=== PATIENT | male | born 1940 | race Caucasian/White ===

== ENCOUNTER 2018-10-07 20:09 | Observation (INO) | payer MEDICARE ==
[2018-10-07] MEDS ORDERED: NITROGLYCERIN SL TABS 0.4 MG TAB SUBLINGUAL PRN (23:28)
[2018-10-07] MEDS ORDERED: HYDROcodone/APAP 10-325MG 1 EACH TAB PO PRN (23:30)
[2018-10-07] MEDS ORDERED: IPRATROPIUM-ALBUTEROL 3 ML NEB INHALATION PRN (23:38)
[2018-10-07] MEDS ORDERED: ONDANSETRON 4 MG/2 ML VIAL IVP PRN (23:41)
[2018-10-07] MEDS ORDERED: LEVOFLOXACIN 500MG-D5W PMX 500 MG in DEXTROSE/WATER 1 100ML.BAG IVPB ONE (23:45)
[2018-10-08] MEDS ORDERED: HEPARIN SODIUM,PORCINE 5,000 UNIT/ML 1 ML VIAL IV PRN (00:12)
[2018-10-08] MEDS ORDERED: HEPARIN SODIUM,PORCINE 10,000 UNIT/ML 1 ML VIAL IV ONE (00:12)
[2018-10-08] MEDS ORDERED: HEPARIN SOD,PORK IN 0.45% NACL 25,000 UNIT in 0.45% NACL 1 250ML.BAG IV SCH (00:15)
[2018-10-08] MEDS: SODIUM CHLORIDE 0.9% 1,000 ML IV SCH ×2 (00:21→20:07)
[2018-10-08] MEDS: MAGNESIUM OXIDE 400 MG TAB PO SCH ×2 (00:21→20:03)
[2018-10-08] MEDS: methylPREDNISolone SOD SUCCI 125 MG/2 ML VIAL IV SCH ×5 (00:22→22:55)
[2018-10-08 05:52] LABS: Glucose,Whole Blood 161 mg/dL (75-99)
[2018-10-08] MEDS: PANTOPRAZOLE 40 MG TABLET PO SCH (06:24)
[2018-10-08] MEDS: INSULIN ASPART 100 UNIT/ML 1 ML 10 ML VIAL SQ SCH ×4 (06:24→20:03)
[2018-10-08 07:59] LABS: Basophils % (A) 0 %; Eosinophils % (A) 0 %; HCT 35.3 % (39.0-53.0); HGB 11.3 gm/dL (13.0-17.5); Lymphocytes # (A) 0.7 k/uL (1.0-4.8); Lymphocytes % (A) 13 %; MCH 29.4 pg (25.0-35.0); MCHC 31.9 g/dL (31.0-37.0); MCV 92.3 fL (80.0-100.0); Mean Platelet Volume 6.8; Monocytes # (A) 0.1 k/uL (0-1.0); Monocytes % (A) 2 %; Neutrophils # (A) 4.8 k/uL (1.3-7.7); Neutrophils % (A) 85 %; Platelet Count 230 k/uL (150-450); RBC 3.82 m/uL (4.30-5.90); RDW 13.9 % (11.5-15.5); WBC 5.7 k/uL (3.8-10.6)
[2018-10-08] MEDS ORDERED: HEPARIN SODIUM,PORCINE 5,000 UNIT/ML 1 ML VIAL SQ SCH (09:00)
[2018-10-08] MEDS: IPRATROPIUM-ALBUTEROL 3 ML NEB INHALATION SCH ×4 (09:08→20:12)
[2018-10-08] MEDS: SYMBICORT 160-4.5 MCG INHALER INHALATION SCH ×3 (09:09→20:12)
[2018-10-08 10:21] LABS: Calcium 9.5 mg/dL (8.4-10.2); Magnesium 1.9 mg/dL (1.6-2.3); Potassium 4.3 mmol/L (3.5-5.1)
--- NOTE | 2018-10-08 10:57 | NM ---
EXAMINATION TYPE: NM pul vent and perfuse DATE OF EXAM: 10/08/2018 COMPARISON: Chest x-ray 10/08/2018 HISTORY: Elevated d-dimer TECHNIQUE: Utilizing inhalation of 66.4 mCi Tc 99m DTPA aerosol and intravenous injection of 4.86 mC i of Tc 99m MAA, ventilation and perfusion images are acquired post injection in multiple projections . FINDINGS: There is a ventilation and perfusion defect which appears matched within the left posterior segment. This match perfusion ventilation defects are not evident. Some blunting of the posterior right lung m ay be present. There is a small posterior pleural fluid collection. This could be a triple matched de fect which would place the risk for pulmonary embolism at the low end of intermediate. IMPRESSION: Low end of intermediate probability for acute pulmonary embolism based on PIOPED 2 criteria.
[2018-10-08 11:00] LABS: Glucose,Whole Blood 146 mg/dL (75-99)
--- NOTE | 2018-10-08 11:37 | XR ---
EXAMINATION TYPE: XR chest 2V DATE OF EXAM: 10/08/2018 COMPARISON: 10/15/2015 INDICATION: COPD TECHNIQUE: Frontal and lateral views of the chest are obtained. FINDINGS: The heart size is normal. The pulmonary vasculature is normal. Minimal linear atelectasis is at the right base. Sternotomy wires from prior CABG is evident. Prior v ertebroplasty within the mid thoracic spine is evident. There is hyperinflation flattened diaphragms compatible COPD. Minimal posterior pleural effusion may be present. This is suspected to be on the ri ght.. IMPRESSION: 1. Small posterior pleural effusion likely at the right base. 2. COPD.
--- NOTE | 2018-10-08 14:47 | CT ---
EXAMINATION TYPE: CT chest wo con DATE OF EXAM: 10/08/2018 COMPARISON: 10/12/2015 HISTORY: Cough and Shortness of breath CT DLP: 293.[address] of the chest was performed with lung and mediastinal window settings submitted. The la ck of contrast limits evaluation of the vascular, mediastinal and parenchymal structures including th e upper abdomen. LUNGS: Nodular scarring is noted at the lung bases with mild subpleural fibrosis and bronchiectasis. Emphysematous bullous change noted as well. Resolution of previously noted nodular infiltrate through out the right upper lobe. No new infiltrates identified. No suspicious masses seen. No pleural effusi on identified. MEDIASTINUM/ROGER: Thoracic aorta is of normal caliber with limited evaluation given lack of contrast . The heart is not enlarged. No evidence for mediastinal mass. No lymph nodes greater than 1cm. UPPER ABDOMEN: No significant abnormality is seen. OTHER: No significant other abnormality. IMPRESSION: 1. Nodular scarring is noted at the lung bases with mild subpleural fibrosis and bronchiectasis. Emp hysematous bullous change noted as well. Resolution of previously noted nodular infiltrate throughout the right upper lobe.
--- NOTE | 2018-10-08 15:05 | P.CNPUL ---
History of Present Illness Consult date: 10/08/18 Requesting physician: Della Eckert Reason for consult: dyspnea, cough Chief complaint: shortness of breath, productive cough History of present illness: This is a 78-year-old white male patient who presented to the emergency department at the [facility] with complaints of shortness of breath, productive cough. patient has been short of breath for about a month, in addition with having some symptoms of dizziness, sore throat. Patient apparently had trouble completing sentences related to his dyspnea. Past medical history positive for COPD, congestive heart failure, GERD/reflux, hypothyroidism, hyperlipidemia, anxiety,depression, restless leg syndrome, coronary artery disease with previous bypass surgery, left carotid stenosis, chronic pain syndrome related to his history of degenerative arthritis. Patient had episode of pneumonia with a cavitating infiltrate in the right middle lobe back in 2016. fever or chills, patient is on 2 L per nasal cannula his pulse ox is 95%. labs showed no evidence of leukocytosis, white count was 5.7, hemoglobin is 11.3, sodium is 133, potassium is 4.3, chloride is 96, CO2 was 28, BUN was 18 and creatinine was 0.96. chest x-ray showed small posterior pleural effusion at the right base, on the background of COPD, minimal linear atelectasis at the right base. VQ scan showed a low and of intermediate probability for acute PE. Patient had seen Dr. Xie at the [facility] in the past, his baseline FEV1 is 39% of predicted with chronic hypoxemic respiratory failure. He wears home oxygen at 2 L/min. Influenza screen was negative. Current inhalers include Symbicort, Spiriva and Albuterol nebulized treatments. CT chest was obtained, and reviewed with Dr. Morris, showed emphysematous blebs, did not show any evidence of pneumonia or pulmonary nodules. Review of Systems All systems: negative Constitutional: Denies chills, Denies fever Eyes: denies blurred vision, denies pain Ears, nose, mouth and throat: Denies headache, Denies sore throat Cardiovascular: Denies chest pain, Denies shortness of breath Respiratory: Reports cough with sputum, Reports dyspnea, Reports home oxygen, Reports respiratory infections, Reports wheezing, Denies cough Gastrointestinal: Denies abdominal pain, Denies diarrhea, Denies nausea, Denies vomiting Musculoskeletal: Denies myalgias Integumentary: Denies pruritus, Denies rash Neurological: Denies numbness, Denies weakness Psychiatric: Denies anxiety, Denies depression Endocrine: Denies fatigue, Denies weight change Past Medical History Past Medical History: Coronary Artery Disease (CAD), Chest Pain / Angina, COPD, Hyperlipidemia, Hypertension, Osteoarthritis (OA), Pneumonia, Thyroid Disorder Additional Past Medical History / Comment(s): COPD, coronary artery disease with previous quadruple bypass surgery, hypertension, hyperlipidemia, hypothyroidism, chronic back pain, nephrolithiasis, chronic arthritic pain involving the back and shoulder, History of Any Multi-Drug Resistant Organisms: None Reported Past Surgical History: Coronary Bypass/CABG, Heart Catheterization Additional Past Surgical History / Comment(s): Coronary artery bypass surgery and the patient had four-vessel bypass, back surgery, ORIF of the left arm/hand area and cataract surgery with intraocular lens placement Past Anesthesia/Blood Transfusion Reactions: Previous Problems w/ Anesthesia Additional Past Anesthesia/Blood Transfusion Reaction / Comment(s): DIFFICULTY WAKING UP Past Psychological History: No Psychological Hx Reported Smoking Status: Former smoker Past Alcohol Use History: Occasional Additional Past Alcohol Use History / Comment(s): STARTED AT AGE 10- GOT UP 10 1.5 PPD, QUIT 40 YEARS AGO Past Drug Use History: None Reported - Past Family History Father History Unknown: Yes Mother Family Medical History: Asthma, COPD Medications and Allergies Home Medications Medication Instructions Recorded Confirmed Type Albuterol Sulfate [Proair Hfa] 2 puff INHALATION RT-BID 10/11/15 10/08/18 History Aspirin EC [Ecotrin Low Dose] 81 mg PO DAILY 10/11/15 10/08/18 History Atorvastatin [Lipitor] 40 mg PO HS 10/11/15 10/08/18 History Furosemide [Lasix] 40 mg PO DAILY 10/11/15 10/08/18 History Levothyroxine Sodium [Synthroid] 50 mcg PO DAILY 10/11/15 10/08/18 History Potassium Chloride ER [K-Dur 20] 20 meq PO DAILY 10/11/15 10/08/18 History Tiotropium [place] [Spiriva 1 puff INHALATION RT-DAILY 10/11/15 10/08/18 History Respimat] Budesonide/Formoterol Fumarate 2 puff INHALATION RT-BID 03/26/18 10/08/18 History [Symbicort 160-4.5 Mcg Inhaler] Doxycycline Hyclate [Vibramycin] 100 mg PO BID 03/26/18 10/08/18 History Nitroglycerin 0.4 mg SL Q5M PRN 03/26/18 10/08/18 History Pantoprazole [Protonix] 40 mg PO DAILY 03/26/18 10/08/18 History Tamsulosin HCl [Flomax] 0.4 mg PO DAILY 03/26/18 10/08/18 History Triamcinolone 0.1% Cream [Kenalog 1 applic TOPICAL BID 03/26/18 10/08/18 History 0.1% Cream] rOPINIRole HCL [Requip] 1 mg PO HS 03/26/18 10/08/18 History HYDROcodone/APAP 10-325MG [[place] 1 tab PO TID 10/07/18 10/08/18 History 10-325] Magnesium Oxide 400 mg PO HS 10/07/18 10/08/18 History Albuterol Nebulized [Ventolin 2.5 mg INHALATION RT-TID 10/08/18 10/08/18 History Nebulized] Azithromycin [Zithromax] 250 mg PO MOWEFR 10/08/18 10/08/18 History Escitalopram Oxalate [Lexapro] 10 mg PO DAILY 10/08/18 10/08/18 History Ketoconazole [Ketoconazole 2%] 1 applic TOPICAL DAILY 10/08/18 10/08/18 History Allergies Allergy/AdvReac Type Severity Reaction Status Date / Time iodine Allergy Rapid Verified 10/08/18 13:51 Heart Rate morphine Allergy Unknown Verified 10/08/18 00:05 Physical Exam Vitals: Vital Signs Temp Pulse Pulse Resp BP Pulse Ox 10/08/18 12:06 86 10/08/18 11:53 86 10/08/18 11:13 98.1 F 84 18 136/71 95 10/08/18 09:21 88 10/08/18 09:09 86 10/08/18 08:00 97.6 F 86 16 153/76 98 10/08/18 04:36 78 16 151/76 98 10/08/18 00:01 16 10/07/18 22:51 98.4 F 76 16 156/80 97 Intake and Output 10/07/18 10/08/18 10/08/18 22:59 06:59 14:59 Intake Total 250 275.508 Output Total 250 Balance 250 -250 275.508 Intake: Intake, IV Titration 250 95.508 Amount Heparin Sod,Pork in 0.45% 95.508 NaCl 25,000 unit In 0.45 % NaCl 1 250ml.bag @ 18 UNITS/KG/HR 12.65 mls/hr IV .[id number] [facility] Rx#: [id number] Levofloxacin 250Mg-D5w 50 Pmx 250 mg In Dextrose/ Water 1 50ml.bag @ 50 mls /hr IVPB Q24H [facility] Rx#: [id number] Sodium Chloride 0.9% 1, 200 000 ml @ 50 mls/hr IV . Q20H [facility] Rx#:[id number] Oral 180 Output: Urine 250 Other: Voiding Method Toilet # Voids 2 1 1 # Bowel Movements 1 Weight 70.3 kg 70.3 kg GENERAL EXAM: Alert, pleasant, 78-year-old white male, on 2 L per nasal cannula comfortable in no apparent distress. HEAD: Normocephalic/atraumatic. EYES: Normal reaction of pupils, equal size. Conjunctiva pink, sclera white. NOSE: Clear with pink turbinates. THROAT: No erythema or exudates. NECK: No masses, no JVD, no thyroid enlargement, no adenopathy. CHEST: No chest wall deformity. Symmetrical expansion. LUNGS: Equal air entry with diffuse wheezes CVS: Regular rate and rhythm, normal S1 and S2, no gallops, no murmurs, no rubs ABDOMEN: Soft, nontender. No hepatosplenomegaly, normal bowel sounds, no guarding or rigidity. EXTREMITIES: No clubbing, no edema, no cyanosis, 2+ pulses and upper and lower extremities. MUSCULOSKELETAL: Muscle strength and tone normal. SPINE: No scoliosis or deformity SKIN: No rashes CENTRAL NERVOUS SYSTEM: Alert and oriented -3. No focal deficits, tone is normal in all 4 extremities. PSYCHIATRIC: Alert and oriented -3. Appropriate affect. Intact judgment and insight. Results - Laboratory Findings CBC and BMP: 10/08/18 07:35 10/08/18 07:35 Abnormal lab findings: Abnormal Labs 10/08/18 10/08/18 10/08/18 05:50 07:35 07:35 RBC 3.82 L Hgb 11.3 L Hct 35.3 L Lymphocytes # 0.7 L APTT Sodium 133 L Chloride 96 L Glucose 131 H POC Glucose (mg/dL) 161 H 10/08/18 10/08/18 07:35 10:59 RBC Hgb Hct Lymphocytes # APTT >200.0 H* Sodium Chloride Glucose POC Glucose (mg/dL) 146 H - Diagnostic Findings Chest x-ray: report reviewed, image reviewed CT scan - chest: report reviewed, image reviewed Additional studies: VQ scan results reviewed Assessment and Plan Plan: Assessment: #1. Acute on chronic hypoxemic respiratory failure related to acute exacerbation of COPD, chest x-ray was negative for any definite pulmonary infiltrates. CT chest did not show any evidence of pneumonia. VQ scan showed low end of intermediate probability for acute pulmonary embolism #2.Advanced oxygen-dependent COPD with a baseline FEV1 of 39% of predicted, consistent with stage III COPD #3. Previous episode of cavitating pneumonia from 2016 #4. chronic hypoxic respiratory failure #5. coronary artery disease with previous bypass surgery, quadruple bypass done approximately 3 years ago #6. Left carotid stenosis #7 renal failure, rule out chronic renal insufficiency #8. hypertension #9. hyperlipidemia #10. hypothyroidism #11. chronic back pain and history of degenerative arthritis Plan: We'll continue current medical treatment, current antibiotic coverage, chest x- ray and CT chest were both reviewed by Dr. Morris, no clear evidence of pneumonia, we will treat the COPD exacerbation, VQ scan was low end of intermediate probability for pulmonary embolism, we will discontinue the heparin drip.continue IV steroids and nebulized bronchodilator, continue to follow I performed a history & physical examination of the patient and discussed their management with my nurse practitioner, Evonne Peters. I reviewed the nurse practitioner's note and agree with the documented findings and plan of care. Lung sounds are positive for diffuse wheezes throughout the lung estrada. The findings and the impression was discussed with the patient. I attest to the documentation by the nurse practitioner. Time with Patient: Greater than 30
[2018-10-08 15:18] LABS: Hemoglobin A1C 5.5 % (4.0-6.0)
[2018-10-08 16:57] LABS: Glucose,Whole Blood 153 mg/dL (75-99)
[2018-10-08 20:11] LABS: Glucose,Whole Blood 212 mg/dL (75-99)
[2018-10-08] MEDS: LEVOFLOXACIN 500 MG TAB PO SCH (22:55)
[2018-10-08] MEDS ORDERED: ALPRAZolam 0.25 MG TAB PO PRN (22:58)
[2018-10-08] MEDS ORDERED: TEMAZEPAM 15 MG CAP PO PRN (22:58)
[2018-10-08] MEDS ORDERED: ACETAMINOPHEN TAB 500 MG TAB PO PRN (22:58)
[2018-10-08] MEDS ORDERED: LEVOFLOXACIN 250MG-D5W PMX 250 MG in DEXTROSE/WATER 1 50ML.BAG IVPB SCH (23:45)
--- NOTE | 2018-10-09 00:06 | HP ---
HISTORY AND PHYSICAL DATE OF SERVICE: 10/08/2018. CHIEF COMPLAINT: Shortness of breath. HISTORY OF PRESENT ILLNESS: This 78-year-old gentleman with a past medical history of multiple medical problems including CAD, history of COPD, hypertension, hypertension, DJD, CAD, CABG, was complaining of shortness of breath. The patient lives in [place]. The patient was noted to have shortness of breath for the last several days. The patient went to [facility] and was subsequently transferred to [facility] for further evaluation and treatment. There is no history of any fever, rigors. The patient previously had an episode of pneumonia. The patient also had pulmonary perfusion imaging at this time which showed low to intermediate probability. A chest CT was also done which showed no large scarring in the lung bases with subpleural fibrosis and bronchiectasis. Previous infiltrate was resolved. The patient was admitted for further evaluation and treatment. Chest x-ray showed small pleural effusion. The patient was admitted for further evaluation and treatment. There is no history of any fevers or rigors or chills. No headache, loss of consciousness or seizures. PAST MEDICAL HISTORY: History of pneumonia, history of COPD, history hypertension, history of DJD. MEDICATIONS: Home medications are: 1. Requip 1 mg p.o. at bedtime. 2. Kenalog cream. 3. Spiriva 1 puff daily. 4. Flomax 0.4 daily. 5. K-Dur 10 mg. 6. Protonix 40 mg daily. 7. Nitro 0.4 sublingual p.r.n. 8. Magnesium oxide 400 mg p.o. at bedtime. 9. Synthroid 50 mcg daily. 10.Ketoconazole 2% ointment topically daily. 11.[place] 10 mg p.o. t.i.d. 12.Lasix 40 mg p.o. daily. 13.Lexapro 10 mg p.o. daily. 14.Vibramycin 100 mg p.o. b.i.d. 15.Symbicort 2.5 two puffs b.i.d. 16.Zithromax 250 mg p.o. Thursday, Thursday, Thursday. 17.Lipitor 40 mg p.o. at bedtime. 18.Ecotrin 81 mg p.o. daily. 19.ProAir HFA 2 puffs b.i.d. 20.Ventolin 2.5 t.i.d. ALLERGIES: IODINE, MORPHINE. FAMILY HISTORY: History of asthma, chronic obstructive pulmonary disease. SOCIAL HISTORY: Previous history of smoking. Occasional alcohol intake. REVIEW OF SYSTEMS: ENT: No diminished vision or hearing. CARDIOVASCULAR: No angina or palpitations. GI: No nausea or vomiting. : No dysuria. NERVOUS SYSTEM: No numbness or weakness. ALLERGY/IMMUNOLOGY: As mentioned earlier. HEMATOLOGY/ONCOLOGY: No history of anemia. ENDOCRINE: Hypothyroid. CONSTITUTIONAL: As mentioned. PHYSICAL EXAMINATION: Alert, oriented times x3. Pulse 84, blood pressure 150/72, respirations 18, temperature 97 degrees, pulse ox 98% on 2 L. HEENT: Pupils equal. Conjunctivae normal. NECK: No JVD. No masses felt. CARDIOVASCULAR: S1, S2 muffled. RESPIRATORY: Breath sounds diminished at the bases. Bilateral scattered rhonchi and crackles. Expiratory wheezing also. ABDOMEN: Soft, nontender. No mass palpable. LEGS: No edema. No swelling. NERVOUS SYSTEM: Higher functions as mentioned. LYMPHATICS: No lymphadenopathy in the neck, axillae or groin. SKIN: No ulcer, rash or bleeding. LAB STUDIES: WBC 5.2, hemoglobin 11.3, sodium 133. ASSESSMENT: 1. Chronic obstructive pulmonary disease acute exacerbation with acute purulent tracheobronchitis. 2. Previous history of cavitating pneumonia and noted infiltrate, which is resolved. 3. History of coronary artery disease. 4. Hypertension. 5. Hyperlipidemia. 6. History of degenerative joint disease. 7. History of hypothyroidism. 8. History of coronary artery disease and coronary artery bypass grafting. 9. History of chronic back pain and degenerative joint disease. 10.Nephrolithiasis. 11.Remote history of nicotine dependence. 12.FULL CODE. 13.Hyponatremia, mild. RECOMMENDATIONS AND DISCUSSION: This 78-year-old gentleman who presented with multiple complex medical issues, we will monitor the patient closely, continue the current management. Resume the home medications. IV steroids. Otherwise, we will monitor closely. Bronchodilators. Closely follow with Dr. Morris. Repeat electrolytes. Prognosis guarded because of multiple complex medical issues. Further recommendations to follow. Also recommend the patient to followup with primary care physician closely after discharge. Broad spectrum IV antibiotics also will be given. MMODL / IJN: [id number] /
[2018-10-09 05:56] LABS: Glucose,Whole Blood 147 mg/dL (75-99)
[2018-10-09] MEDS: INSULIN ASPART 100 UNIT/ML 1 ML 10 ML VIAL SQ SCH ×4 (05:58→20:15)
[2018-10-09] MEDS: LEVOTHYROXINE 50 MCG TAB PO SCH (06:11)
[2018-10-09] MEDS: methylPREDNISolone SOD SUCCI 125 MG/2 ML VIAL IV SCH ×2 (06:11→12:18)
[2018-10-09] MEDS: PANTOPRAZOLE 40 MG TABLET PO SCH (06:11)
[2018-10-09 07:05] LABS: Basophils % (A) 0 %; Eosinophils % (A) 0 %; HCT 34.4 % (39.0-53.0); HGB 10.5 gm/dL (13.0-17.5); Lymphocytes # (A) 0.7 k/uL (1.0-4.8); Lymphocytes % (A) 6 %; MCH 27.7 pg (25.0-35.0); MCHC 30.5 g/dL (31.0-37.0); MCV 90.8 fL (80.0-100.0); Mean Platelet Volume 6.2; Monocytes # (A) 0.5 k/uL (0-1.0); Monocytes % (A) 4 %; Neutrophils # (A) 10.9 k/uL (1.3-7.7); Neutrophils % (A) 89 %; Platelet Count 238 k/uL (150-450); RBC 3.78 m/uL (4.30-5.90); WBC 12.3 k/uL (3.8-10.6)
[2018-10-09 07:13] LABS: Calcium 9.4 mg/dL (8.4-10.2); Potassium 4.3 mmol/L (3.5-5.1)
[2018-10-09] MEDS: HEPARIN SODIUM,PORCINE 5,000 UNIT/ML 1 ML VIAL SQ SCH ×2 (08:48→20:15)
[2018-10-09] MEDS: ASPIRIN 81 MG PO SCH (08:48)
[2018-10-09] MEDS: POTASSIUM CHLORIDE ER 20 MEQ TAB.ER PO SCH (08:48)
[2018-10-09] MEDS: ESCITALOPRAM 10 MG TAB PO SCH (08:48)
[2018-10-09] MEDS: FUROSEMIDE 40 MG TAB PO SCH (08:48)
[2018-10-09] MEDS: TAMSULOSIN 0.4 MG CAP.ER.24H PO SCH (08:48)
[2018-10-09] MEDS: TRIAMCINOLONE 0.1% CREAM 80 GM TUBE TOPICAL SCH ×2 (08:50→20:17)
[2018-10-09] MEDS: SYMBICORT 160-4.5 MCG INHALER INHALATION SCH ×2 (09:01→20:35)
[2018-10-09] MEDS: IPRATROPIUM-ALBUTEROL 3 ML NEB INHALATION SCH ×4 (09:01→20:35)
[2018-10-09 11:17] LABS: Glucose,Whole Blood 156 mg/dL (75-99)
[2018-10-09] MEDS: CLOTRIMAZOLE 1% CREAM 15 GM TUBE TOPICAL SCH (11:17)
--- NOTE | 2018-10-09 16:31 | P.PN ---
Subjective Progress Note Date: 10/09/18 This is a 78-year-old white male patient who presented to the emergency department at the [facility] with complaints of shortness of breath, productive cough. patient has been short of breath for about a month, in addition with having some symptoms of dizziness, sore throat. Patient apparently had trouble completing sentences related to his dyspnea. Past medical history positive for COPD, congestive heart failure, GERD/reflux, hypothyroidism, hyperlipidemia, anxiety,depression, restless leg syndrome, coronary artery disease with previous bypass surgery, left carotid stenosis, chronic pain syndrome related to his history of degenerative arthritis. Patient had episode of pneumonia with a cavitating infiltrate in the right middle lobe back in 2016. fever or chills, patient is on 2 L per nasal cannula his pulse ox is 95%. labs showed no evidence of leukocytosis, white count was 5.7, hemoglobin is 11.3, sodium is 133, potassium is 4.3, chloride is 96, CO2 was 28, BUN was 18 and creatinine was 0.96. chest x-ray showed small posterior pleural effusion at the right base, on the background of COPD, minimal linear atelectasis at the right base. VQ scan showed a low and of intermediate probability for acute PE. Patient had seen Dr. Xie at the [facility] in the past, his baseline FEV1 is 39% of predicted with chronic hypoxemic respiratory failure. He wears home oxygen at 2 L/min. Influenza screen was negative. Current inhalers include Symbicort, Spiriva and Albuterol nebulized treatments. CT chest was obtained, and reviewed with Dr. Morris, showed emphysematous blebs, did not show any evidence of pneumonia or pulmonary nodules. Patient is seen again today 10/09/2018 in follow-up on the selective care unit. He is currently sitting up in a chair at the bedside. He is awake and alert in no acute distress. He is breathing easier today as compared to yesterday. He is maintaining good O2 saturations in the upper 90s on 2 L/m per nasal cannula. He is afebrile. Hemodynamically stable. Count 12.3. Hemoglobin 10.5. Creatinine 0.94. He remains on DuoNeb inhalations, Symbicort and IV Solu -Medrol. Objective - Vital Signs Vital signs: Vital Signs Temp 97.9 F 10/09/18 11:43 Pulse 80 01/19/19 12:12 Resp 20 10/09/18 11:43 BP 161/77 10/09/18 11:43 Pulse Ox 99 10/09/18 11:43 Intake & Output 10/08/18 10/09/18 10/09/18 18:59 06:59 18:59 Intake Total 475.508 100 360 Balance 475.508 100 360 Weight 71.4 kg Intake: IV 100 Sodium Chloride 0.9% 1, 100 000 ml @ 50 mls/hr IV . Q20H [facility] Rx#:[id number] Intake, IV Titration 95.508 Amount Heparin Sod,Pork in 0.45% 95.508 NaCl 25,000 unit In 0.45 % NaCl 1 250ml.bag @ 18 UNITS/KG/HR 12.65 mls/hr IV .[id number] [facility] Rx#: [id number] Oral 380 360 Other: # Voids 1 1 2 - Exam GENERAL EXAM: Alert, active, comfortable in no apparent distress. Nasal cannula. HEAD: Normocephalic. EYES: Normal reaction of pupils, equal size. NOSE: Clear with pink turbinates. THROAT: No erythema or exudates. NECK: No masses, no JVD. CHEST: No chest wall deformity. LUNGS: Equal air entry with faint end expiratory wheeze. Diminished. CVS: S1 and S2 normal with no audible murmur, regular rhythm. ABDOMEN: No hepatosplenomegaly, normal bowel sounds, no guarding or rigidity. SPINE: No scoliosis or deformity SKIN: No rashes. CENTRAL NERVOUS SYSTEM: No focal deficits, tone is normal in all 4 extremities. EXTREMITIES: There is no peripheral edema. No clubbing, no cyanosis. Peripheral pulses are intact. - Labs CBC & Chem 7: 10/09/18 06:40 10/09/18 06:40 Labs: Abnormal Lab Results - Last 24 Hours (Table) 10/08/18 10/08/18 10/09/18 Range/Units 16:55 20:00 05:50 WBC (3.8-10.6) k/uL RBC (4.30-5.90) m/uL Hgb (13.0-17.5) gm/dL Hct (39.0-53.0) % MCHC (31.0-37.0) g/dL Neutrophils # (1.3-7.7) k/uL Lymphocytes # (1.0-4.8) k/uL Sodium (137-145) mmol/L Chloride (98-107) mmol/L BUN (9-20) mg/dL Glucose (74-99) mg/dL POC Glucose (mg/dL) 153 H 212 H 147 H (75-99) mg/dL 10/09/18 10/09/18 10/09/18 Range/Units 06:40 06:40 11:15 WBC 12.3 H (3.8-10.6) k/uL RBC 3.78 L (4.30-5.90) m/uL Hgb 10.5 L (13.0-17.5) gm/dL Hct 34.4 L (39.0-53.0) % MCHC 30.5 L (31.0-37.0) g/dL Neutrophils # 10.9 H (1.3-7.7) k/uL Lymphocytes # 0.7 L (1.0-4.8) k/uL Sodium 132 L (137-145) mmol/L Chloride 96 L (98-107) mmol/L BUN 24 H (9-20) mg/dL Glucose 130 H (74-99) mg/dL POC Glucose (mg/dL) 156 H (75-99) mg/dL Assessment and Plan Assessment: Assessment: #1. Acute on chronic hypoxemic respiratory failure related to acute exacerbation of COPD, chest x-ray was negative for any definite pulmonary infiltrates. CT chest did not show any evidence of pneumonia. VQ scan showed low end of intermediate probability for acute pulmonary embolism #2.Advanced oxygen-dependent COPD with a baseline FEV1 of 39% of predicted, consistent with stage III COPD #3. Previous episode of cavitating pneumonia from 2016 #4. chronic hypoxic respiratory failure #5. coronary artery disease with previous bypass surgery, quadruple bypass done approximately 3 years ago #6. Left carotid stenosis #7 renal failure, rule out chronic renal insufficiency #8. hypertension #9. hyperlipidemia #10. hypothyroidism #11. chronic back pain and history of degenerative arthritis Plan: The patient was seen and evaluated by Dr. Morris. He is improved today as compared to yesterday. We'll continue his COPD treatment. We'll increase his activity as tolerated. We'll continue to follow. I, the cosigning physician, performed a history & physical examination of the patient. Lungs sounds with end expiratory wheeze. Maintaining good O2 saturations in the 90s on 2 liters per minute per nasal cannula. I discussed the assessment and plan of care with my nurse practitioner, Kyleigh Heller. I attest to the above note as dictated by her.
[2018-10-09] MEDS: methylPREDNISolone SOD SUCCI 40 MG/ML 1 ML VIAL IV SCH ×2 (16:53→22:38)
[2018-10-09] MEDS: SODIUM CHLORIDE 0.9% 1,000 ML IV SCH (16:53)
[2018-10-09 16:59] LABS: Glucose,Whole Blood 163 mg/dL (75-99)
--- NOTE | 2018-10-09 19:52 | PN ---
PROGRESS NOTE DATE OF SERVICE: 10/09/2018 This 78-year-old gentleman who was admitted with COPD acute exacerbation, also had previously cavitating pneumonia. Patient being closely monitored. Patient on IV steroids. CT scan noted. No chest pain. No palpitations. No fever. Pulmonary is following the patient closely. EXAM: Alert and oriented x3. Pulse 77. Blood pressure 161/77, respiration 20, temperature 97.9, pulse ox 99% on 2 L. HEENT is conjunctivae normal. Neck is no jugular venous distention. Cardiovascular: S1, S2 muffled. Respiratory: Breath sounds diminished in the bases. Bilateral scattered rhonchi and crackles. Abdomen is soft, nontender. Legs are no edema, no swelling. Central nervous system: No focal deficits. LAB STUDIES: WBC 12.3, hemoglobin 10.2. Sodium 132. ASSESSMENT: 1. Chronic obstructive pulmonary disease acute exacerbation with acute purulent tracheobronchitis. 2. Previous history of cavitating pneumonia and infiltrate in the upper lobe, which is resolved. 3. History of coronary artery disease. 4. Hypertension. 5. Hyperlipidemia. 6. History of degenerative joint disease. 7. Hypothyroidism. 8. History of coronary artery disease, coronary artery bypass grafting. 9. History of chronic back pain and degenerative joint disease. 10.Nephrolithiasis. 11.Remote history of nicotine dependence. 12.Mild hyponatremia. 13.FULL CODE. RECOMMENDATIONS AND DISCUSSION: Recommend to continue current medications, management. Symptomatic treatment. Continue with bronchodilators. Continue with IV steroids. Recommend taper steroids to 40 mg IV q.8h. Other than that, continue the antibiotics and bronchodilators. Closely follow with Pulmonary. Guarded prognosis because of multiple complex medical issues. Further recommendations to follow. Increase ambulation. MMODL / IJN: [id number] /
[2018-10-09 20:06] LABS: Glucose,Whole Blood 234 mg/dL (75-99)
[2018-10-09] MEDS: LEVOFLOXACIN 500 MG TAB PO SCH (20:15)
[2018-10-09] MEDS: MAGNESIUM OXIDE 400 MG TAB PO SCH (20:15)
[2018-10-10 05:20] LABS: Glucose,Whole Blood 122 mg/dL (75-99)
[2018-10-10] MEDS: INSULIN ASPART 100 UNIT/ML 1 ML 10 ML VIAL SQ SCH ×4 (05:43→21:39)
[2018-10-10] MEDS: LEVOTHYROXINE 50 MCG TAB PO SCH (06:02)
[2018-10-10] MEDS: PANTOPRAZOLE 40 MG TABLET PO SCH (06:02)
[2018-10-10 07:00] LABS: Basophils % (A) 0 %; Eosinophils % (A) 0 %; HCT 32.9 % (39.0-53.0); HGB 10.6 gm/dL (13.0-17.5); Lymphocytes # (A) 0.6 k/uL (1.0-4.8); Lymphocytes % (A) 5 %; MCH 29.2 pg (25.0-35.0); MCHC 32.2 g/dL (31.0-37.0); MCV 90.9 fL (80.0-100.0); Monocytes # (A) 0.6 k/uL (0-1.0); Monocytes % (A) 5 %; Neutrophils # (A) 11.5 k/uL (1.3-7.7); Neutrophils % (A) 90 %; Platelet Count 219 k/uL (150-450); RBC 3.61 m/uL (4.30-5.90); WBC 12.8 k/uL (3.8-10.6)
[2018-10-10 07:07] LABS: Potassium 4.4 mmol/L (3.5-5.1)
[2018-10-10] MEDS: IPRATROPIUM-ALBUTEROL 3 ML NEB INHALATION SCH ×4 (07:32→19:48)
[2018-10-10] MEDS: SYMBICORT 160-4.5 MCG INHALER INHALATION SCH ×2 (07:32→19:48)
[2018-10-10] MEDS: TAMSULOSIN 0.4 MG CAP.ER.24H PO SCH (08:30)
[2018-10-10] MEDS: methylPREDNISolone SOD SUCCI 40 MG/ML 1 ML VIAL IV SCH ×3 (08:30→23:28)
[2018-10-10] MEDS: FUROSEMIDE 40 MG TAB PO SCH (08:30)
[2018-10-10] MEDS: POTASSIUM CHLORIDE ER 20 MEQ TAB.ER PO SCH (08:30)
[2018-10-10] MEDS: ASPIRIN 81 MG PO SCH (08:30)
[2018-10-10] MEDS: HEPARIN SODIUM,PORCINE 5,000 UNIT/ML 1 ML VIAL SQ SCH ×2 (08:30→19:44)
[2018-10-10] MEDS: ESCITALOPRAM 10 MG TAB PO SCH (08:30)
[2018-10-10] MEDS: TRIAMCINOLONE 0.1% CREAM 80 GM TUBE TOPICAL SCH ×2 (08:31→19:51)
[2018-10-10] MEDS: CLOTRIMAZOLE 1% CREAM 15 GM TUBE TOPICAL SCH (08:36)
[2018-10-10 11:11] LABS: Glucose,Whole Blood 124 mg/dL (75-99)
--- NOTE | 2018-10-10 12:11 | P.PN ---
Subjective Progress Note Date: 10/10/18 Principal diagnosis: Acute on chronic hypoxemic respiratory failure is related to acute exacerbation of COPD This is a 78-year-old white male patient who presented to the emergency department at the [facility] with complaints of shortness of breath, productive cough. patient has been short of breath for about a month, in addition with having some symptoms of dizziness, sore throat. Patient apparently had trouble completing sentences related to his dyspnea. Past medical history positive for COPD, congestive heart failure, GERD/reflux, hypothyroidism, hyperlipidemia, anxiety,depression, restless leg syndrome, coronary artery disease with previous bypass surgery, left carotid stenosis, chronic pain syndrome related to his history of degenerative arthritis. Patient had episode of pneumonia with a cavitating infiltrate in the right middle lobe back in 2016. fever or chills, patient is on 2 L per nasal cannula his pulse ox is 95%. labs showed no evidence of leukocytosis, white count was 5.7, hemoglobin is 11.3, sodium is 133, potassium is 4.3, chloride is 96, CO2 was 28, BUN was 18 and creatinine was 0.96. chest x-ray showed small posterior pleural effusion at the right base, on the background of COPD, minimal linear atelectasis at the right base. VQ scan showed a low and of intermediate probability for acute PE. Patient had seen Dr. Xie at the [facility] in the past, his baseline FEV1 is 39% of predicted with chronic hypoxemic respiratory failure. He wears home oxygen at 2 L/min. Influenza screen was negative. Current inhalers include Symbicort, Spiriva and Albuterol nebulized treatments. CT chest was obtained, and reviewed with Dr. Morris, showed emphysematous blebs, did not show any evidence of pneumonia or pulmonary nodules. Patient is seen again today 10/09/2018 in follow-up on the selective care unit. He is currently sitting up in a chair at the bedside. He is awake and alert in no acute distress. He is breathing easier today as compared to yesterday. He is maintaining good O2 saturations in the upper 90s on 2 L/m per nasal cannula. He is afebrile. Hemodynamically stable. Count 12.3. Hemoglobin 10.5. Creatinine 0.94. He remains on DuoNeb inhalations, Symbicort and IV Solu -Medrol. On 10/10/2017 patient seen in follow-up on selective care unit, he sitting up in the chair, in no acute distress, he states his breathing is improving, he has occasional nonproductive cough, lung sounds reveal a few scattered rhonchi, no significant wheezing, then 2 L per nasal cannula his pulse ox is 98%, afebrile, no cultures were sent this admission, today's labs have been reviewed , WBC is 12.8, hemoglobin is 10.6, sodium is 133, potassium is 4.4, chloride is 96, CO2 is 31 B1 is 29 creatinine is 1.14. Patient remains on empiric antibiotics in the form of Levaquin for acute exacerbation of COPD, is on Symbicort, nebulized bronchodilators and IV steroids Objective - Vital Signs Vital signs: Vital Signs Temp 97.8 F 10/10/18 08:00 Pulse 88 10/10/18 11:30 Resp 18 10/10/18 08:00 BP 148/72 10/10/18 08:00 Pulse Ox 98 10/10/18 08:00 Intake & Output 10/09/18 10/10/18 10/10/18 18:59 06:59 18:59 Intake Total 600 240 240 Balance 600 240 240 Weight 72 kg Intake: Oral 600 240 240 Other: # Voids 2 2 - Exam GENERAL EXAM: Alert, pleasant, 78-year-old white male, on 2 L per nasal cannula comfortable in no apparent distress. HEAD: Normocephalic/atraumatic. EYES: Normal reaction of pupils, equal size. Conjunctiva pink, sclera white. NOSE: Clear with pink turbinates. THROAT: No erythema or exudates. NECK: No masses, no JVD, no thyroid enlargement, no adenopathy. CHEST: No chest wall deformity. Symmetrical expansion. LUNGS: Equal air entry with scattered rhonchi CVS: Regular rate and rhythm, normal S1 and S2, no gallops, no murmurs, no rubs ABDOMEN: Soft, nontender. No hepatosplenomegaly, normal bowel sounds, no guarding or rigidity. EXTREMITIES: No clubbing, no edema, no cyanosis, 2+ pulses and upper and lower extremities. MUSCULOSKELETAL: Muscle strength and tone normal. SPINE: No scoliosis or deformity SKIN: No rashes CENTRAL NERVOUS SYSTEM: Alert and oriented -3. No focal deficits, tone is normal in all 4 extremities. PSYCHIATRIC: Alert and oriented -3. Appropriate affect. Intact judgment and insight. - Labs CBC & Chem 7: 10/10/18 05:55 10/10/18 05:55 Labs: Abnormal Lab Results - Last 24 Hours (Table) 10/09/18 10/09/18 10/10/18 Range/Units 16:57 20:05 05:18 WBC (3.8-10.6) k/uL RBC (4.30-5.90) m/uL Hgb (13.0-17.5) gm/dL Hct (39.0-53.0) % Neutrophils # (1.3-7.7) k/uL Lymphocytes # (1.0-4.8) k/uL Sodium (137-145) mmol/L Chloride (98-107) mmol/L Carbon Dioxide (22-30) mmol/L BUN (9-20) mg/dL Glucose (74-99) mg/dL POC Glucose (mg/dL) 163 H 234 H 122 H (75-99) mg/dL 10/10/18 10/10/18 10/10/18 Range/Units 05:55 05:55 11:10 WBC 12.8 H (3.8-10.6) k/uL RBC 3.61 L (4.30-5.90) m/uL Hgb 10.6 L (13.0-17.5) gm/dL Hct 32.9 L (39.0-53.0) % Neutrophils # 11.5 H (1.3-7.7) k/uL Lymphocytes # 0.6 L (1.0-4.8) k/uL Sodium 133 L (137-145) mmol/L Chloride 96 L (98-107) mmol/L Carbon Dioxide 31 H (22-30) mmol/L BUN 29 H (9-20) mg/dL Glucose 112 H (74-99) mg/dL POC Glucose (mg/dL) 124 H (75-99) mg/dL Assessment and Plan Plan: Assessment: #1. Acute on chronic hypoxemic respiratory failure related to acute exacerbation of COPD, chest x-ray was negative for any definite pulmonary infiltrates. CT chest did not show any evidence of pneumonia. VQ scan showed low end of intermediate probability for acute pulmonary embolism #2.Advanced oxygen-dependent COPD with a baseline FEV1 of 39% of predicted, consistent with stage III COPD #3. Previous episode of cavitating pneumonia from 2016 #4. chronic hypoxic respiratory failure #5. coronary artery disease with previous bypass surgery, quadruple bypass done approximately 3 years ago #6. Left carotid stenosis #7 renal failure, rule out chronic renal insufficiency #8. hypertension #9. hyperlipidemia #10. hypothyroidism #11. chronic back pain and history of degenerative arthritis Plan: Continue current medical treatment, and nebulized bronchodilators, IV steroids and empiric antibiotics, patient is improving, increase activity as tolerated. Anticipate further improvement and possible discharge tomorrow I performed a history & physical examination of the patient and discussed their management with my nurse practitioner, Evonne Peters. I reviewed the nurse practitioner's note and agree with the documented findings and plan of care. Lung sounds are positive for few scattered rhonchi. The findings and the impression was discussed with the patient. I attest to the documentation by the nurse practitioner. Time with Patient: Less than 30
[2018-10-10] MEDS: SODIUM CHLORIDE 0.9% 1,000 ML IV SCH (13:06)
[2018-10-10 16:39] LABS: Glucose,Whole Blood 206 mg/dL (75-99)
[2018-10-10] MEDS ORDERED: METOPROLOL TARTRATE 25 MG TAB PO STA (19:36)
[2018-10-10] MEDS: LEVOFLOXACIN 500 MG TAB PO SCH (19:44)
[2018-10-10] MEDS: MAGNESIUM OXIDE 400 MG TAB PO SCH (19:44)
--- NOTE | 2018-10-10 20:14 | PN ---
PROGRESS NOTE DATE OF SERVICE: 10/10/2018. This 78-year-old gentleman who was admitted with COPD acute exacerbation, also had a previous history of cavitated pneumonia. Patient improved significantly. No chest pain. No palpitations. No fever. EXAM: Alert and oriented x3. Pulse 88, blood pressure 129/72, respiration 20, temperature 98.7, pulse ox 94% on 2 L. HEENT: Conjunctivae normal. NECK: No jugular venous distention. CARDIOVASCULAR: S1, S2. RESPIRATORY: Breath sounds diminished in the bases. Bilateral scattered rhonchi and crackles. ABDOMEN: Soft, nontender. LEGS: No edema. NERVOUS SYSTEM: No focal deficits. LABS: WBC 12.8, hemoglobin 10.6. Sodium 133. ASSESSMENT: 1. Chronic obstructive pulmonary disease acute exacerbation with acute purulent tracheobronchitis. 2. History of previous cavitated pneumonia infiltrate in the upper lobe, which is resolved. 3. History of coronary artery disease. 4. Hypertension. 5. Hyperlipidemia. 6. History of degenerative joint disease. 7. Hypothyroidism. 8. History of coronary artery disease/CABG. 9. History of chronic back pain, degenerative joint disease. 10.History of nephrolithiasis. 11.Remote history of nicotine dependence. 12.Mild hyponatremia. 13.FULL CODE. RECOMMENDATIONS AND DISCUSSION: In this 78-year-old gentleman who presented with multiple complex medical issues, will monitor the patient closely. Continue the current management and symptomatic treatment. Otherwise at this time I recommend continue with bronchodilators. Continue with the rest of medications. Closely follow with Dr. Morris. Guarded prognosis. Further recommendations to follow. MMODL / IJN: [id number] /
[2018-10-10 21:00] LABS: Glucose,Whole Blood 176 mg/dL (75-99)
[2018-10-11 05:39] LABS: Glucose,Whole Blood 129 mg/dL (75-99)
[2018-10-11] MEDS: INSULIN ASPART 100 UNIT/ML 1 ML 10 ML VIAL SQ SCH ×2 (06:24→12:33)
[2018-10-11] MEDS: LEVOTHYROXINE 50 MCG TAB PO SCH (06:27)
[2018-10-11] MEDS: PANTOPRAZOLE 40 MG TABLET PO SCH (06:27)
[2018-10-11 07:04] LABS: Basophils % (A) 0 %; Eosinophils % (A) 0 %; HCT 36.1 % (39.0-53.0); HGB 11.5 gm/dL (13.0-17.5); Lymphocytes # (A) 0.6 k/uL (1.0-4.8); Lymphocytes % (A) 6 %; MCH 29.2 pg (25.0-35.0); MCHC 31.9 g/dL (31.0-37.0); MCV 91.6 fL (80.0-100.0); Mean Platelet Volume 6.8; Monocytes # (A) 0.4 k/uL (0-1.0); Monocytes % (A) 4 %; Neutrophils # (A) 8.6 k/uL (1.3-7.7); Neutrophils % (A) 89 %; Platelet Count 247 k/uL (150-450); RBC 3.94 m/uL (4.30-5.90); WBC 9.7 k/uL (3.8-10.6)
[2018-10-11 07:11] LABS: Prothrombin Time 10.6 sec (9.0-12.0)
[2018-10-11] MEDS: methylPREDNISolone SOD SUCCI 40 MG/ML 1 ML VIAL IV SCH (08:12)
[2018-10-11] MEDS: HEPARIN SODIUM,PORCINE 5,000 UNIT/ML 1 ML VIAL SQ SCH (08:12)
[2018-10-11] MEDS: FUROSEMIDE 40 MG TAB PO SCH (08:13)
[2018-10-11] MEDS: TAMSULOSIN 0.4 MG CAP.ER.24H PO SCH (08:13)
[2018-10-11] MEDS: ESCITALOPRAM 10 MG TAB PO SCH (08:13)
[2018-10-11] MEDS: ASPIRIN 81 MG PO SCH (08:13)
[2018-10-11] MEDS: CLOTRIMAZOLE 1% CREAM 15 GM TUBE TOPICAL SCH (08:15)
[2018-10-11] MEDS: TRIAMCINOLONE 0.1% CREAM 80 GM TUBE TOPICAL SCH (08:15)
[2018-10-11 08:23] VITALS: BP 129/92; RESP 16; TEMP 96.5
[2018-10-11] MEDS ORDERED: METOPROLOL TARTRATE 25 MG TAB PO SCH (09:00)
[2018-10-11] MEDS: IPRATROPIUM-ALBUTEROL 3 ML NEB INHALATION SCH ×3 (09:06→16:26)
[2018-10-11] MEDS: SYMBICORT 160-4.5 MCG INHALER INHALATION SCH (09:06)
[2018-10-11 09:10] VITALS: PULSE 80
[2018-10-11 12:08] LABS: Glucose,Whole Blood 120 mg/dL (75-99)
[2018-10-11] MEDS: POTASSIUM CHLORIDE ER 20 MEQ TAB.ER PO SCH (12:27)
--- NOTE | 2018-10-11 13:55 | P.PN ---
Subjective Progress Note Date: 10/11/18 Principal diagnosis: Acute on chronic hypoxemic respiratory failure is related to acute exacerbation of COPD This is a 78-year-old white male patient who presented to the emergency department at the [facility] with complaints of shortness of breath, productive cough. patient has been short of breath for about a month, in addition with having some symptoms of dizziness, sore throat. Patient apparently had trouble completing sentences related to his dyspnea. Past medical history positive for COPD, congestive heart failure, GERD/reflux, hypothyroidism, hyperlipidemia, anxiety,depression, restless leg syndrome, coronary artery disease with previous bypass surgery, left carotid stenosis, chronic pain syndrome related to his history of degenerative arthritis. Patient had episode of pneumonia with a cavitating infiltrate in the right middle lobe back in 2016. fever or chills, patient is on 2 L per nasal cannula his pulse ox is 95%. labs showed no evidence of leukocytosis, white count was 5.7, hemoglobin is 11.3, sodium is 133, potassium is 4.3, chloride is 96, CO2 was 28, BUN was 18 and creatinine was 0.96. chest x-ray showed small posterior pleural effusion at the right base, on the background of COPD, minimal linear atelectasis at the right base. VQ scan showed a low and of intermediate probability for acute PE. Patient had seen Dr. Xie at the [facility] in the past, his baseline FEV1 is 39% of predicted with chronic hypoxemic respiratory failure. He wears home oxygen at 2 L/min. Influenza screen was negative. Current inhalers include Symbicort, Spiriva and Albuterol nebulized treatments. CT chest was obtained, and reviewed with Dr. Morris, showed emphysematous blebs, did not show any evidence of pneumonia or pulmonary nodules. Patient is seen again today 10/09/2018 in follow-up on the selective care unit. He is currently sitting up in a chair at the bedside. He is awake and alert in no acute distress. He is breathing easier today as compared to yesterday. He is maintaining good O2 saturations in the upper 90s on 2 L/m per nasal cannula. He is afebrile. Hemodynamically stable. Count 12.3. Hemoglobin 10.5. Creatinine 0.94. He remains on DuoNeb inhalations, Symbicort and IV Solu -Medrol. On 10/10/2017 patient seen in follow-up on selective care unit, he sitting up in the chair, in no acute distress, he states his breathing is improving, he has occasional nonproductive cough, lung sounds reveal a few scattered rhonchi, no significant wheezing, then 2 L per nasal cannula his pulse ox is 98%, afebrile, no cultures were sent this admission, today's labs have been reviewed , WBC is 12.8, hemoglobin is 10.6, sodium is 133, potassium is 4.4, chloride is 96, CO2 is 31 B1 is 29 creatinine is 1.14. Patient remains on empiric antibiotics in the form of Levaquin for acute exacerbation of COPD, is on Symbicort, nebulized bronchodilators and IV steroids On 10/14/2017 patient seen in follow-up on selective care unit. Doing better, less short of breath, less bronchospastic, he is at his baseline, he is on 2 L per nasal cannula, his pulse ox is 99%, he is afebrile, dynamically stable, lung sounds are clear, no new chest x-rays, acute events overnight, no chest congestion, no wheezing. From pulmonary perspective he stable for discharge home today. Objective - Vital Signs Vital signs: Vital Signs Temp 96.5 F L 10/11/18 08:00 Pulse 80 10/11/18 12:35 Resp 16 10/11/18 11:10 BP 129/92 10/11/18 08:00 Pulse Ox 99 10/11/18 08:00 Intake & Output 10/10/18 10/11/18 10/11/18 18:59 06:59 18:59 Intake Total 480 240 240 Balance 480 240 240 Weight 72.5 kg Intake: Oral 480 240 240 Other: Voiding Method Toilet Toilet # Voids 3 1 - Exam GENERAL EXAM: Alert, pleasant, 78-year-old white male, on 2 L per nasal cannula comfortable in no apparent distress. HEAD: Normocephalic/atraumatic. EYES: Normal reaction of pupils, equal size. Conjunctiva pink, sclera white. NOSE: Clear with pink turbinates. THROAT: No erythema or exudates. NECK: No masses, no JVD, no thyroid enlargement, no adenopathy. CHEST: No chest wall deformity. Symmetrical expansion. LUNGS: Equal air entry, no rhonchi no wheezing no rales CVS: Regular rate and rhythm, normal S1 and S2, no gallops, no murmurs, no rubs ABDOMEN: Soft, nontender. No hepatosplenomegaly, normal bowel sounds, no guarding or rigidity. EXTREMITIES: No clubbing, no edema, no cyanosis, 2+ pulses and upper and lower extremities. MUSCULOSKELETAL: Muscle strength and tone normal. SPINE: No scoliosis or deformity SKIN: No rashes CENTRAL NERVOUS SYSTEM: Alert and oriented -3. No focal deficits, tone is normal in all 4 extremities. PSYCHIATRIC: Alert and oriented -3. Appropriate affect. Intact judgment and insight. - Labs CBC & Chem 7: 10/11/18 06:34 10/11/18 06:34 Labs: Abnormal Lab Results - Last 24 Hours (Table) 10/10/18 10/10/18 10/11/18 Range/Units 16:38 20:59 05:37 RBC (4.30-5.90) m/uL Hgb (13.0-17.5) gm/dL Hct (39.0-53.0) % Neutrophils # (1.3-7.7) k/uL Lymphocytes # (1.0-4.8) k/uL Sodium (137-145) mmol/L Chloride (98-107) mmol/L Carbon Dioxide (22-30) mmol/L BUN (9-20) mg/dL Glucose (74-99) mg/dL POC Glucose (mg/dL) 206 H 176 H 129 H (75-99) mg/dL 10/11/18 10/11/18 10/11/18 Range/Units 06:34 06:34 11:40 RBC 3.94 L (4.30-5.90) m/uL Hgb 11.5 L (13.0-17.5) gm/dL Hct 36.1 L (39.0-53.0) % Neutrophils # 8.6 H (1.3-7.7) k/uL Lymphocytes # 0.6 L (1.0-4.8) k/uL Sodium 132 L (137-145) mmol/L Chloride 93 L (98-107) mmol/L Carbon Dioxide 34 H (22-30) mmol/L BUN 32 H (9-20) mg/dL Glucose 119 H (74-99) mg/dL POC Glucose (mg/dL) 120 H (75-99) mg/dL Assessment and Plan Plan: Assessment: #1. Acute on chronic hypoxemic respiratory failure related to acute exacerbation of COPD, chest x-ray was negative for any definite pulmonary infiltrates. CT chest did not show any evidence of pneumonia. VQ scan showed low end of intermediate probability for acute pulmonary embolism #2.Advanced oxygen-dependent COPD with a baseline FEV1 of 39% of predicted, consistent with stage III COPD #3. Previous episode of cavitating pneumonia from 2016 #4. chronic hypoxic respiratory failure #5. coronary artery disease with previous bypass surgery, quadruple bypass done approximately 3 years ago #6. Left carotid stenosis #7 renal failure, rule out chronic renal insufficiency #8. hypertension #9. hyperlipidemia #10. hypothyroidism #11. chronic back pain and history of degenerative arthritis Plan: Patient continues to improve, tolerating ambulation, no fever or chills, his breathing is improving, lung sounds are negative for any wheezing or chest congestion. He is at his baseline. From pulmonary perspective he stable for discharge home today, on the short prednisone taper, finish outpatient course of oral antibiotics, he can continue his Symbicort, Spiriva, nebulized bronchodilators. Need follow-up in the office with Dr. Xie and he has an appointment with him in the pulmonary clinic in [place] on October 19. [place], and [place] to see him in [place], we'll have the patient keep this upcoming appointment so he can be seen sooner in follow-up , and set up follow-ups at the [place] clinic thereafter. I performed a history & physical examination of the patient and discussed their management with my nurse practitioner, Evonne Peters. I reviewed the nurse practitioner's note and agree with the documented findings and plan of care. Lung sounds are positive for few scattered rhonchi. The findings and the impression was discussed with the patient. I attest to the documentation by the nurse practitioner. Time with Patient: Less than 30
--- NOTE | 2018-10-11 15:43 | P.DS ---
Providers Date of admission: 10/07/18 22:46 Expected date of discharge: 10/11/18 Attending physician: Pam Obrien Consults: 10/07/18 23:37 Consult Physician Routine Consulting Provider: Tam Morris Consult Reason/Comments: copd Do you want consulting provider notified?: Yes Primary care physician: Pam Obrien Hospital Course: Final Diagnoses: -Acute exacerbation COPD with acute purulent tracheobronchitis in a patient with history of cavitating pneumonia. -Advanced COPD -CAD, history of CABG -Hypertension -Hyperlipidemia Hospital course: This is a 78-year-old gentleman admitted with acute COPD exacerbation, prior history cavitated pneumonia. Chest x-ray reports small pleural effusion.VQ scan reported low end of intermediate probability for acute PE. Chest CT reported scarring, emphysematous blebs, previous infiltrate resolved with no evidence of pneumonia or pulmonary nodules , reviewed by pulmonary with Heparin drip discontinued. Maintained on nebulized bronchodilators, empiric antibiotics, IV steroids with significant clinical improvement. Cleared by pulmonary for discharge. Patient is being discharged home in a stable condition with guarded prognosis. EXAM: GEN: Sitting up in chair, no acute distress. CV: Regular S1 and S2.LUNGS: Equal air entry, no rhonchi, crackles, or wheezing . ABD: Soft, nontender, positive bowel sounds. NEURO: No focal deficits. The impression and plan of care has been dictated as directed. : I performed a history and examination of this patient, discussed the same with the dictator. I agree with the dictator's note ,documented as a scribe. Any additional findings or plans will be noted. Time taken: 35 minutes Patient Condition at Discharge: Stable Plan - Discharge Summary Discharge Rx Participant: No New Discharge Prescriptions: New Levofloxacin [Levaquin] 500 mg PO HS #5 tab Metoprolol Tartrate [Lopressor] 25 mg PO BID #60 tab predniSONE 10 mg PO DIRECTED #30 tab Continue Albuterol Sulfate [Proair Hfa] 2 puff INHALATION RT-BID Tiotropium Wedron [Spiriva Respimat] 1 puff INHALATION RT-DAILY Potassium Chloride ER [K-Dur 20] 20 meq PO DAILY Levothyroxine Sodium [Synthroid] 50 mcg PO DAILY Furosemide [Lasix] 40 mg PO DAILY Aspirin EC [Ecotrin Low Dose] 81 mg PO DAILY Atorvastatin [Lipitor] 40 mg PO HS rOPINIRole HCL [Requip] 1 mg PO HS Triamcinolone 0.1% Cream [Kenalog 0.1% Cream] 1 applic TOPICAL BID Tamsulosin HCl [Flomax] 0.4 mg PO DAILY Pantoprazole [Protonix] 40 mg PO DAILY Nitroglycerin 0.4 mg SL Q5M PRN PRN Reason: Chest Pain Budesonide/Formoterol Fumarate [Symbicort 160-4.5 Mcg Inhaler] 2 puff INHALATION RT-BID HYDROcodone/APAP 10-325MG [Whiteclay 10-325] 1 tab PO TID Magnesium Oxide 400 mg PO HS Ketoconazole [Ketoconazole 2%] 1 applic TOPICAL DAILY Escitalopram Oxalate [Lexapro] 10 mg PO DAILY Albuterol Nebulized [Ventolin Nebulized] 2.5 mg INHALATION RT-TID #0 Discontinued Doxycycline Hyclate [Vibramycin] 100 mg PO BID Azithromycin [Zithromax] 250 mg PO MOWEFR Discharge Medication List Albuterol Sulfate [Proair Hfa] 2 puff INHALATION RT-BID 10/11/15 [History] Aspirin EC [Ecotrin Low Dose] 81 mg PO DAILY 10/11/15 [History] Atorvastatin [Lipitor] 40 mg PO HS 10/11/15 [History] Furosemide [Lasix] 40 mg PO DAILY 10/11/15 [History] Levothyroxine Sodium [Synthroid] 50 mcg PO DAILY 10/11/15 [History] Potassium Chloride ER [K-Dur 20] 20 meq PO DAILY 10/11/15 [History] Tiotropium Wedron [Spiriva Respimat] 1 puff INHALATION RT-DAILY 10/11/15 [ History] Budesonide/Formoterol Fumarate [Symbicort 160-4.5 Mcg Inhaler] 2 puff INHALATION RT-BID 03/26/18 [History] Nitroglycerin 0.4 mg SL Q5M PRN 03/26/18 [History] Pantoprazole [Protonix] 40 mg PO DAILY 03/26/18 [History] Tamsulosin HCl [Flomax] 0.4 mg PO DAILY 03/26/18 [History] Triamcinolone 0.1% Cream [Kenalog 0.1% Cream] 1 applic TOPICAL BID 03/26/18 [ History] rOPINIRole HCL [Requip] 1 mg PO HS 03/26/18 [History] HYDROcodone/APAP 10-325MG [Whiteclay 10-325] 1 tab PO TID 10/07/18 [History] Magnesium Oxide 400 mg PO HS 10/07/18 [History] Escitalopram Oxalate [Lexapro] 10 mg PO DAILY 10/08/18 [History] Ketoconazole [Ketoconazole 2%] 1 applic TOPICAL DAILY 10/08/18 [History] Albuterol Nebulized [Ventolin Nebulized] 2.5 mg INHALATION RT-TID #0 10/11/18 [ Rx] Levofloxacin [Levaquin] 500 mg PO HS #5 tab 10/11/18 [Rx] Metoprolol Tartrate [Lopressor] 25 mg PO BID #60 tab 10/11/18 [Rx] predniSONE 10 mg PO DIRECTED #30 tab 10/11/18 [Rx] Follow up Appointment(s)/Referral(s): Jorje Xie DO [Doctor of Osteopathic Medicine] - 10/13/18 10:45 am ( Thursday at [facility]) Trena Rizzo NPC [REFERRING] - 10/18/18 10:30 am (Thursday) Ambulatory/Diagnostic Orders: Complete Blood Count w/diff [LAB.AMB] Time Frame: 3 Days, Location: None Selected Patient Instructions/Handouts: COPD (Chronic Obstructive Pulmonary Disease) (DC )
[2018-10-11 16:34] LABS: Glucose,Whole Blood 176 mg/dL (75-99)
== END 2018-10-11 18:21 | disposition home health service (06) ==
LOC: 3SCARD 22:46 → INTOOBSV 22:46 → 3SCARD 23:45
PROVIDERS: ADMIT Internal Medicine; ATTEND Internal Medicine
DX: J44.1 Chronic obstructive pulmonary disease with (acute) exacerbation (principal); J96.21 Acute and chronic respiratory failure with hypoxia; J44.0 Chronic obstructive pulmonary disease with (acute) lower respiratory infection; J20.9 Acute bronchitis, unspecified; I11.0 Hypertensive heart disease with heart failure; I50.9 Heart failure, unspecified; I25.10 Atherosclerotic heart disease of native coronary artery without angina pectoris; I65.22 Occlusion and stenosis of left carotid artery; Z99.81 Dependence on supplemental oxygen; N19 Unspecified kidney failure; M19.90 Unspecified osteoarthritis, unspecified site; E03.9 Hypothyroidism, unspecified; E78.5 Hyperlipidemia, unspecified; N20.0 Calculus of kidney; E87.1 Hypo-osmolality and hyponatremia; K21.9 Gastro-esophageal reflux disease without esophagitis; G89.4 Chronic pain syndrome; M54.9 Dorsalgia, unspecified; M47.9 Spondylosis, unspecified; M19.019 Primary osteoarthritis, unspecified shoulder; G25.81 Restless legs syndrome; F41.9 Anxiety disorder, unspecified; F32.9 Major depressive disorder, single episode, unspecified; Z79.891 Long term (current) use of opiate analgesic; Z79.51 Long term (current) use of inhaled steroids; Z79.899 Other long term (current) drug therapy; Z79.82 Long term (current) use of aspirin; Z88.5 Allergy status to narcotic agent; Z91.048 Other nonmedicinal substance allergy status; Z87.442 Personal history of urinary calculi; Z87.891 Personal history of nicotine dependence; Z98.49 Cataract extraction status, unspecified eye; Z87.01 Personal history of pneumonia (recurrent); Z96.1 Presence of intraocular lens; Z82.5 Family history of asthma and other chronic lower respiratory diseases
CPT/HCPCS: 96376 ×4; 96365; 96366; 96367; 96372 ×3; 96375; 94640 ×8; 94760 ×3; 80048 ×4; 83735; 85025 ×4; 85610; 85730; 83036; 71046; 71250; 78582; G0379; G0378 ×6; A9540; A9567; J1644 ×5; J2920 ×3; J2930 ×2; J1956

== ENCOUNTER 2019-01-16 15:45 | Inpatient (IN) | payer MEDICARE, OTHER ==
[2019-01-16] MEDS ORDERED: ALBUTEROL NEBULIZED 2.5 MG/3 ML INHALATION STA (15:46)
[2019-01-16] MEDS ORDERED: methylPREDNISolone SOD SUCCI 125 MG/2 ML VIAL IV STA (15:46)
[2019-01-16] MEDS ORDERED: IPRATROPIUM 0.5 MG/2.5 ML NEBU INHALATION STA (15:46)
[2019-01-16 16:05] LABS: Basophils % (A) 0 %; Eosinophils % (A) 1 %; HCT 31.2 % (39.0-53.0); HGB 10.5 gm/dL (13.0-17.5); Lymphocytes # (A) 0.5 k/uL (1.0-4.8); Lymphocytes % (A) 6 %; MCH 30.1 pg (25.0-35.0); MCHC 33.5 g/dL (31.0-37.0); MCV 89.8 fL (80.0-100.0); Mean Platelet Volume 6.6; Monocytes # (A) 0.2 k/uL (0-1.0); Monocytes % (A) 3 %; Neutrophils # (A) 7.2 k/uL (1.3-7.7); Neutrophils % (A) 90 %; Platelet Count 212 k/uL (150-450); RBC 3.47 m/uL (4.30-5.90)
[2019-01-16 16:16] LABS: ALT 30 U/L (21-72); AST 34 U/L (17-59); Albumin 3.5 g/dL (3.5-5.0); Alkaline Phosphatase 63 U/L (38-126); Anion Gap 6 mmol/L; Blood Urea Nitrogen 16 mg/dL (9-20); Calcium 8.7 mg/dL (8.4-10.2); Carbon Dioxide 32 mmol/L (22-30); Chloride 89 mmol/L (98-107); Glucose 132 mg/dL (74-99); Potassium 4.9 mmol/L (3.5-5.1); Sodium 127 mmol/L (137-145); Total Bilirubin 0.4 mg/dL (0.2-1.3)
--- NOTE | 2019-01-16 16:30 | XR ---
EXAMINATION TYPE: XR chest 2V DATE OF EXAM: 01/16/2019 COMPARISON: 10/08/2018 HISTORY: COPD. Hypertension. TECHNIQUE: Frontal and lateral views of the chest are obtained. FINDINGS: There is some linear density at the lung bases. Thoracic aorta is atheromatous. There are sternal wires. There are no hilar masses. There is anterior wedging of thoracic vertebra with old mid thoracic vertebroplasty. There is coarsening of interstitial markings. IMPRESSION: Pulmonary fibrosis. There is probably COPD. There is new mild subsegmental atelectasis a t the lung bases compared to old exam. No heart failure..
[2019-01-16 16:53] LABS: INR 0.9 (<1.2)
--- NOTE | 2019-01-16 17:27 | ED ---
SOB HPI - General Chief Complaint: Shortness of Breath Stated Complaint: SOB Time Seen by Provider: 01/16/19 15:46 Source: EMS, RN notes reviewed, old records reviewed Mode of arrival: EMS Limitations: no limitations - History of Present Illness Initial Comments: This is a 70-year-old male the ER for evaluation. Patient has a for shortness of breath. Patient accepted in transfer, patient presents for transfer of shortness of breath patient requested [facility] for evaluation regarding shortness of breath as he has recent inpatient hospitalization for pneumonia. Patient was just discharged yesterday. Patient has persistent shortness of breath again currently. No travel history no sick contacts. Denies fever or chest pain. Patient wanted to this hospital is as well as this is where his pulmonogist is located. MD Complaint: shortness of breath, cough, anxiety -: days(s) Radiation: other (no pain) Severity: severe (improved) Severity scale (1-10): 10 Consistency: constant, intermittent Improves With: nothing Worsens With: exertion Known History Of: COPD Context: recent URI Associated Symptoms: chest pain, pain with inspiration, cough Treatments Prior to Arrival: oxygen, bronchodilator - Related Data Home Medications Medication Instructions Recorded Confirmed Aspirin EC [Ecotrin Low Dose] 81 mg PO DAILY 10/11/15 01/16/19 Atorvastatin [Lipitor] 40 mg PO HS 10/11/15 01/16/19 Levothyroxine Sodium [Synthroid] 50 mcg PO DAILY 10/11/15 01/16/19 Potassium Chloride ER [K-Dur 20] 20 meq PO DAILY 10/11/15 01/16/19 Tiotropium [place] [Spiriva 1 puff INHALATION RT-DAILY 10/11/15 01/16/19 Respimat] Budesonide/Formoterol Fumarate 2 puff INHALATION RT-BID 03/26/18 01/16/19 [Symbicort 160-4.5 Mcg Inhaler] Nitroglycerin 0.4 mg SL Q5M PRN 03/26/18 01/16/19 Pantoprazole [Protonix] 40 mg PO DAILY 03/26/18 01/16/19 Tamsulosin HCl [Flomax] 0.4 mg PO DAILY 03/26/18 01/16/19 Triamcinolone 0.1% Cream [Kenalog 1 applic TOPICAL BID 03/26/18 01/16/19 0.1% Cream] rOPINIRole HCL [Requip] 1 mg PO QAM 03/26/18 01/17/19 HYDROcodone/APAP 10-325MG [[place] 1 tab PO TID PRN 10/07/18 01/16/19 10-325] Magnesium Oxide 400 mg PO HS 10/07/18 01/16/19 Escitalopram Oxalate [Lexapro] 10 mg PO DAILY 10/08/18 01/16/19 Ketoconazole [Ketoconazole 2%] 1 applic TOPICAL DAILY 10/08/18 01/16/19 Albuterol Inhaler [Ventolin Hfa 2 puff INHALATION RT-Q6H PRN 01/16/19 01/16/19 Inhaler] Doxycycline Monohydrate [Monodox] 100 mg PO BID 01/16/19 01/16/19 Furosemide [Lasix] 20 mg PO DAILY 01/16/19 01/16/19 Metoprolol Succinate (ER) [Toprol 25 mg PO DAILY 01/16/19 01/16/19 Xl] Nystatin 100,000Unit/gm Cream 1 applic TOPICAL BID 01/16/19 01/16/19 [Mycostatin Cream] predniSONE See Taper PO DIRECTED 01/16/19 01/16/19 Previous Rx's Medication Instructions Recorded Albuterol Nebulized [Ventolin 2.5 mg INHALATION RT-TID #0 10/11/18 Nebulized] Allergies Allergy/AdvReac Type Severity Reaction Status Date / Time morphine Allergy Unknown Verified 01/16/19 16:06 iodine AdvReac Rapid Verified 01/16/19 16:06 Heart Rate Review of Systems ROS Statement: Those systems with pertinent positive or pertinent negative responses have been documented in the HPI. ROS Other: All systems not noted in ROS Statement are negative. Past Medical History Past Medical History: Coronary Artery Disease (CAD), Chest Pain / Angina, COPD, Hyperlipidemia, Hypertension, Osteoarthritis (OA), Pneumonia, Thyroid Disorder Additional Past Medical History / Comment(s): COPD, coronary artery disease with previous quadruple bypass surgery, hypertension, hyperlipidemia, hypothyroidism, chronic back pain, nephrolithiasis, chronic arthritic pain involving the back and shoulder, History of Any Multi-Drug Resistant Organisms: None Reported Past Surgical History: Coronary Bypass/CABG, Heart Catheterization Additional Past Surgical History / Comment(s): Coronary artery bypass surgery and the patient had four-vessel bypass, back surgery, ORIF of the left arm/hand area and cataract surgery with intraocular lens placement Past Anesthesia/Blood Transfusion Reactions: Previous Problems w/ Anesthesia Additional Past Anesthesia/Blood Transfusion Reaction / Comment(s): DIFFICULTY WAKING UP Past Psychological History: No Psychological Hx Reported Smoking Status: Former smoker Past Alcohol Use History: Occasional Past Drug Use History: None Reported - Past Family History Father History Unknown: Yes Mother Family Medical History: Asthma, COPD General Exam Limitations: no limitations General appearance: alert, in no apparent distress Head exam: Present: atraumatic, normocephalic, normal inspection Eye exam: Present: normal appearance, PERRL, EOMI. Absent: scleral icterus, conjunctival injection, periorbital swelling ENT exam: Present: normal exam, mucous membranes moist Neck exam: Present: normal inspection. Absent: tenderness, meningismus, lymphadenopathy Respiratory exam: Present: respiratory distress, wheezes, decreased breath sounds, prolonged expiratory. Absent: rales, rhonchi, stridor Cardiovascular Exam: Present: regular rate, normal rhythm, normal heart sounds. Absent: systolic murmur, diastolic murmur, rubs, gallop, clicks GI/Abdominal exam: Present: soft, normal bowel sounds. Absent: distended, tenderness, guarding, rebound, rigid Extremities exam: Present: normal inspection, full ROM, normal capillary refill. Absent: tenderness, pedal edema, joint swelling, calf tenderness Back exam: Present: normal inspection Neurological exam: Present: alert, oriented X3, CN II-XII intact Psychiatric exam: Present: normal affect, normal mood Skin exam: Present: warm, dry, intact, normal color. Absent: rash Course Vital Signs 01/16/19 01/16/19 01/16/19 15:47 16:00 16:17 Temperature 97.9 F Pulse Rate 59 L 70 75 Respiratory 22 18 18 Rate Blood Pressure 156/83 156/83 O2 Sat by Pulse 95 96 Oximetry 01/16/19 01/16/19 01/16/19 16:30 16:50 17:00 Temperature Pulse Rate 72 80 89 Respiratory 20 20 22 Rate Blood Pressure 162/81 149/82 O2 Sat by Pulse 99 97 Oximetry 01/16/19 01/16/19 01/16/19 17:01 17:30 18:00 Temperature Pulse Rate 82 82 81 Respiratory 18 20 20 Rate Blood Pressure 139/87 133/116 O2 Sat by Pulse 97 95 Oximetry 01/16/19 01/16/19 01/16/19 18:30 19:00 19:07 Temperature Pulse Rate 78 78 83 Respiratory 22 18 18 Rate Blood Pressure 145/75 142/79 O2 Sat by Pulse 97 96 Oximetry 01/16/19 19:17 Temperature Pulse Rate 85 Respiratory 18 Rate Blood Pressure O2 Sat by Pulse Oximetry - Reevaluation(s) Reevaluation #1: Medical record is reviewed Transfer paperwork is reviewed Patient still shortness of breath no improved Medical Decision Making - Medical Decision Making 78 male the ER for evaluation of shortness of breath cough and congestion, patient is accepted in transfer for COPD exacerbation with hypoxia. Patient be admitted for breathing treatments and monitoring of cardiopulmonary status - Lab Data Result diagrams: 01/19/19 14:43 01/19/19 09:08 Lab Results 01/16/19 01/16/19 01/16/19 Range/Units 15:56 15:56 15:56 WBC 8.0 (3.8-10.6) k/uL RBC 3.47 L (4.30-5.90) m/uL Hgb 10.5 L (13.0-17.5) gm/dL Hct 31.2 L (39.0-53.0) % MCV 89.8 (80.0-100.0) fL MCH 30.1 (25.0-35.0) pg MCHC 33.5 (31.0-37.0) g/dL RDW 15.0 (11.5-15.5) % Plt Count 212 (150-450) k/uL Neutrophils % 90 % Lymphocytes % 6 % Monocytes % 3 % Eosinophils % 1 % Basophils % 0 % Neutrophils # 7.2 (1.3-7.7) k/uL Lymphocytes # 0.5 L (1.0-4.8) k/uL Monocytes # 0.2 (0-1.0) k/uL Eosinophils # 0.0 (0-0.7) k/uL Basophils # 0.0 (0-0.2) k/uL PT (9.0-12.0) sec INR (<1.2) APTT (22.0-30.0) sec Sodium 127 L (137-145) mmol/L Potassium 4.9 (3.5-5.1) mmol/L Chloride 89 L (98-107) mmol/L Carbon Dioxide 32 H (22-30) mmol/L Anion Gap 6 mmol/L BUN 16 (9-20) mg/dL Creatinine 0.71 (0.66-1.25) mg/dL Est GFR (CKD-EPI)AfAm >90 (>60 ml/min/1.73 sqM) Est GFR (CKD-EPI)NonAf >90 (>60 ml/min/1.73 sqM) Glucose 132 H (74-99) mg/dL Calcium 8.7 (8.4-10.2) mg/dL Magnesium 2.0 (1.6-2.3) mg/dL Total Bilirubin 0.4 (0.2-1.3) mg/dL AST 34 (17-59) U/L ALT 30 (21-72) U/L Alkaline Phosphatase 63 (38-126) U/L Troponin I (0.000-0.034) ng/mL NT-Pro-B Natriuret Pep 1630 pg/mL Total Protein 6.0 L (6.3-8.2) g/dL Albumin 3.5 (3.5-5.0) g/dL 01/16/19 01/16/19 Range/Units 15:56 15:56 WBC (3.8-10.6) k/uL RBC (4.30-5.90) m/uL Hgb (13.0-17.5) gm/dL Hct (39.0-53.0) % MCV (80.0-100.0) fL MCH (25.0-35.0) pg MCHC (31.0-37.0) g/dL RDW (11.5-15.5) % Plt Count (150-450) k/uL Neutrophils % % Lymphocytes % % Monocytes % % Eosinophils % % Basophils % % Neutrophils # (1.3-7.7) k/uL Lymphocytes # (1.0-4.8) k/uL Monocytes # (0-1.0) k/uL Eosinophils # (0-0.7) k/uL Basophils # (0-0.2) k/uL PT 10.0 (9.0-12.0) sec INR 0.9 (<1.2) APTT 24.0 (22.0-30.0) sec Sodium (137-145) mmol/L Potassium (3.5-5.1) mmol/L Chloride (98-107) mmol/L Carbon Dioxide (22-30) mmol/L Anion Gap mmol/L BUN (9-20) mg/dL Creatinine (0.66-1.25) mg/dL Est GFR (CKD-EPI)AfAm (>60 ml/min/1.73 sqM) Est GFR (CKD-EPI)NonAf (>60 ml/min/1.73 sqM) Glucose (74-99) mg/dL Calcium (8.4-10.2) mg/dL Magnesium (1.6-2.3) mg/dL Total Bilirubin (0.2-1.3) mg/dL AST (17-59) U/L ALT (21-72) U/L Alkaline Phosphatase (38-126) U/L Troponin I <0.012 (0.000-0.034) ng/mL NT-Pro-B Natriuret Pep pg/mL Total Protein (6.3-8.2) g/dL Albumin (3.5-5.0) g/dL - EKG Data -: EKG Interpreted by Me (EKG shows sinus rhythm rate of 70, W[place] 60, QRS 134, QTc 466) Disposition Clinical Impression: COPD (chronic obstructive pulmonary disease), Acute exacerbation of chronic obstructive airways disease, Hypoxia Disposition: ADMITTED IP TO THIS HOSP Condition: Fair Is patient prescribed a controlled substance at d/c from ED?: No
[2019-01-16] MEDS: IPRATROPIUM-ALBUTEROL 3 ML NEB INHALATION SCH (19:07)
[2019-01-16] MEDS: SODIUM CHLORIDE 0.9% 1,000 ML IV SCH (21:31)
[2019-01-16] MEDS ORDERED: METOPROLOL TARTRATE 25 MG TAB PO STA (22:42)
[2019-01-16] MEDS ORDERED: MAGNESIUM OXIDE 400 MG TAB PO SCH (22:45)
[2019-01-16] MEDS: methylPREDNISolone SOD SUCCI 125 MG/2 ML VIAL IV SCH (23:28)
[2019-01-17] MEDS: SODIUM CHLORIDE 0.9% 1,000 ML IV SCH ×2 (05:04→17:42)
[2019-01-17] MEDS: methylPREDNISolone SOD SUCCI 125 MG/2 ML VIAL IV SCH ×4 (05:55→23:06)
[2019-01-17 07:07] LABS: Glucose,Whole Blood 150 mg/dL (75-99)
[2019-01-17] MEDS: IPRATROPIUM-ALBUTEROL 3 ML NEB INHALATION SCH ×4 (07:51→19:12)
[2019-01-17] MEDS: INSULIN ASPART (NovoLOG) 100 UNIT/ML VIAL SQ SCH ×4 (08:11→20:52)
[2019-01-17] MEDS ORDERED: NITROGLYCERIN SL TABS 0.4 MG TAB SUBLINGUAL PRN (08:18)
[2019-01-17] MEDS: ASPIRIN 81 MG PO SCH (08:40)
[2019-01-17] MEDS: FUROSEMIDE 20 MG TAB PO SCH (08:40)
[2019-01-17] MEDS: ESCITALOPRAM 10 MG TAB PO SCH (08:41)
[2019-01-17] MEDS: METOPROLOL SUCCINATE (ER) 25 MG TAB.ER.24H PO SCH (08:41)
[2019-01-17] MEDS: DOXYCYCLINE 100 MG CAP PO SCH ×2 (08:41→20:52)
[2019-01-17] MEDS: TAMSULOSIN 0.4 MG CAP.ER.24H PO SCH (08:41)
[2019-01-17] MEDS ORDERED: ENOXAPARIN 40 MG/0.4 ML SYRINGE SQ SCH (09:00)
[2019-01-17] MEDS: PANTOPRAZOLE 40 MG TABLET PO SCH (09:12)
[2019-01-17] MEDS: LEVOTHYROXINE 50 MCG TAB PO SCH (09:12)
--- NOTE | 2019-01-17 10:04 | P.HPIM ---
History of Present Illness This is a pleasant 78 years old male with past medical history of advanced COPD, coronary artery disease status post bypass surgery, hypertension, hyperlipidemia, hyperthyroidism, chronic back pain. Presents with dyspnea, 456 days, associated with cough and yellow-green phlegm but no chest pain. Patient is on home oxygen at 2 L via nasal cannula. Vitals Table, blood pressure. He is saturating 96% on 4 L oxygen. Labs reviewe d, CBC is unremarkable. Sodium 127, creatinine 0.7. Troponins are negative. Chest x-ray: Pulmonary fibrosis and probable COPD, atelectasis but no CHF. Review of Systems CONSTITUTIONAL: No fever, no malaise, no fatigue. HEENT: No recent visual problems or hearing problems. Denied any sore throat. CARDIOVASCULAR: No orthopnea, PND, no palpitations, no syncope. PULMONARY: No shortness of breath, no cough, no hemoptysis. GASTROINTESTINAL: No diarrhea, no nausea, no vomiting, no abdominal pain. Normoactive bowel sounds. NEUROLOGICAL: No headaches, no weakness, no numbness. HEMATOLOGICAL: Denies any bleeding or petechiae. GENITOURINARY: Denies any burning micturition, frequency, or urgency. MUSCULOSKELETAL/RHEUMATOLOGICAL: Denies any joint pain, swelling, or any muscle pain. ENDOCRINE: Denies any polyuria or polydipsia. Past Medical History Past Medical History: Coronary Artery Disease (CAD), Chest Pain / Angina, COPD, Hyperlipidemia, Hypertension, Osteoarthritis (OA), Pneumonia, Thyroid Disorder Additional Past Medical History / Comment(s): COPD, coronary artery disease with previous quadruple bypass surgery, hypertension, hyperlipidemia, hypothyroidism, chronic back pain, nephrolithiasis, chronic arthritic pain involving the back and shoulder, History of Any Multi-Drug Resistant Organisms: None Reported Past Surgical History: Coronary Bypass/CABG, Heart Catheterization Additional Past Surgical History / Comment(s): Coronary artery bypass surgery and the patient had four-vessel bypass, back surgery, ORIF of the left arm/hand area and cataract surgery with intraocular lens placement, heart cath with 3 stents Past Anesthesia/Blood Transfusion Reactions: Previous Problems w/ Anesthesia Additional Past Anesthesia/Blood Transfusion Reaction / Comment(s): DIFFICULTY WAKING UP Past Psychological History: No Psychological Hx Reported Additional Psychological History / Comment(s): 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 Patient uses a walker and cane at home. Smoking Status: Former smoker Past Alcohol Use History: Occasional Additional Past Alcohol Use History / Comment(s): STARTED AT AGE 10- GOT UP 10 1.5 PPD, QUIT 40 YEARS AGO. Jame reports drinking a beer now adn then. Past Drug Use History: None Reported - Past Family History Father History Unknown: Yes Family Medical History: No Reported History Additional Family Medical History / Comment(s): Vang Mother Family Medical History: Asthma, COPD Medications and Allergies Home Medications Medication Instructions Recorded Confirmed Type Aspirin EC [Ecotrin Low Dose] 81 mg PO DAILY 10/11/15 01/16/19 History Atorvastatin [Lipitor] 40 mg PO HS 10/11/15 01/16/19 History Levothyroxine Sodium [Synthroid] 50 mcg PO DAILY 10/11/15 01/16/19 History Potassium Chloride ER [K-Dur 20] 20 meq PO DAILY 10/11/15 01/16/19 History Tiotropium [place] [Spiriva 1 puff INHALATION RT-DAILY 10/11/15 01/16/19 History Respimat] Budesonide/Formoterol Fumarate 2 puff INHALATION RT-BID 03/26/18 01/16/19 History [Symbicort 160-4.5 Mcg Inhaler] Nitroglycerin 0.4 mg SL Q5M PRN 03/26/18 01/16/19 History Pantoprazole [Protonix] 40 mg PO DAILY 03/26/18 01/16/19 History Tamsulosin HCl [Flomax] 0.4 mg PO DAILY 03/26/18 01/16/19 History Triamcinolone 0.1% Cream [Kenalog 1 applic TOPICAL BID 03/26/18 01/16/19 History 0.1% Cream] rOPINIRole HCL [Requip] 1 mg PO QAM 03/26/18 01/17/19 History HYDROcodone/APAP 10-325MG [[place] 1 tab PO TID PRN 10/07/18 01/16/19 History 10-325] Magnesium Oxide 400 mg PO HS 10/07/18 01/16/19 History Escitalopram Oxalate [Lexapro] 10 mg PO DAILY 10/08/18 01/16/19 History Ketoconazole [Ketoconazole 2%] 1 applic TOPICAL DAILY 10/08/18 01/16/19 History Albuterol Nebulized [Ventolin 2.5 mg INHALATION RT-TID #0 10/11/18 01/16/19 Rx Nebulized] Albuterol Inhaler [Ventolin Hfa 2 puff INHALATION RT-Q6H PRN 01/16/19 01/16/19 History Inhaler] Doxycycline Monohydrate [Monodox] 100 mg PO BID 01/16/19 01/16/19 History Furosemide [Lasix] 20 mg PO DAILY 01/16/19 01/16/19 History Metoprolol Succinate (ER) [Toprol 25 mg PO DAILY 01/16/19 01/16/19 History Xl] Nystatin 100,000Unit/gm Cream 1 applic TOPICAL BID 01/16/19 01/16/19 History [Mycostatin Cream] predniSONE See Taper PO DIRECTED 01/16/19 01/16/19 History Allergies Allergy/AdvReac Type Severity Reaction Status Date / Time morphine Allergy Unknown Verified 01/16/19 16:06 iodine AdvReac Rapid Verified 01/16/19 16:06 Heart Rate Physical Exam Vitals: Vital Signs Temp Pulse Pulse Resp BP BP Pulse Ox 01/17/19 08:02 78 01/17/19 07:52 75 96 01/17/19 05:48 97.5 F L 69 16 167/91 98 01/17/19 05:20 167/84 97 01/16/19 23:30 73 159/75 97 01/16/19 23:18 77 01/16/19 22:29 180 H 01/16/19 22:26 91 01/16/19 22:25 164 H 24 145/95 01/16/19 20:10 97.6 F 81 20 156/84 94 L 01/16/19 19:17 85 18 01/16/19 19:07 83 18 01/16/19 19:00 78 18 142/79 96 01/16/19 18:30 78 22 145/75 97 01/16/19 18:00 81 20 133/116 95 01/16/19 17:30 82 20 139/87 97 01/16/19 17:01 82 18 01/16/19 17:00 89 22 149/82 97 01/16/19 16:50 80 20 01/16/19 16:30 72 20 162/81 99 01/16/19 16:17 75 18 01/16/19 16:00 70 18 156/83 96 01/16/19 15:47 97.9 F 59 L 22 156/83 95 Intake and Output 01/16/19 01/17/19 01/17/19 22:59 06:59 14:59 Intake Total 740 1340 Output Total 400 1200 Balance 340 140 Intake: Intake, IV Titration 200 800 Amount Sodium Chloride 0.9% 1, 200 800 000 ml @ 100 mls/hr IV . Q10H [facility] Rx#:[id number] Oral 540 540 Output: Urine 400 1200 Other: Voiding Method Urinal Weight 68.039 kg GENERAL: The patient is alert and oriented x3, not in any acute distress. Well developed, well nourished. HEENT: Pupils are round and equally reacting to light. EOMI. No scleral icterus. No conjunctival pallor. Normocephalic, atraumatic. No pharyngeal erythema. No thyromegaly. CARDIOVASCULAR: S1 and S2 present. No murmurs, rubs, or gallops. -PULMONARY: Chest is clear to auscultation, Bilateral expiratory wheezing, Harsh breath sounds ABDOMEN: Soft, nontender, nondistended, normoactive bowel sounds. No palpable organomegaly. MUSCULOSKELETAL: No joint swelling or deformity. -EXTREMITIES: No cyanosis, clubbing, . Bilateral mild to moderate leg edema NEUROLOGICAL: Gross neurological examination did not reveal any focal deficits. SKIN: No rashes. Results CBC & Chem 7: 01/16/19 15:56 01/16/19 15:56 Labs: Abnormal Lab Results - Last 24 Hours (Table) 01/16/19 01/16/19 01/17/19 Range/Units 15:56 15:56 07:05 RBC 3.47 L (4.30-5.90) m/uL Hgb 10.5 L (13.0-17.5) gm/dL Hct 31.2 L (39.0-53.0) % Lymphocytes # 0.5 L (1.0-4.8) k/uL Sodium 127 L (137-145) mmol/L Chloride 89 L (98-107) mmol/L Carbon Dioxide 32 H (22-30) mmol/L Glucose 132 H (74-99) mg/dL POC Glucose (mg/dL) 150 H (75-99) mg/dL Total Protein 6.0 L (6.3-8.2) g/dL Thrombosis Risk Factor Assmnt - Choose All That Apply Each Factor Represents 1 point: Abnormal pulmonary function (COPD), Swollen legs (current) Each Risk Factor Represents 3 Points: Age 75 years or older Other congenital or acquired thrombophilia - If yes, enter type in comment: No Thrombosis Risk Factor Assessment Total Risk Factor Score: 5 Thrombosis Risk Factor Assessment Level: High Risk Assessment and Plan Assessment: Acute COPD exacerbation, history of advanced COPD acute on Chronic hypoxic respiratory failure History of coronary artery disease, status post CABG Left carotid artery stenosis Hypertension Hyperlipidemia Hypothyroidism Chronic back pain Bilateral expiratory wheezing Harsh breath sounds Bilateral mild to moderate leg edema Plan: This is a pleasant 78 years old male presents with acute COPD exacerbation, continue with steroids, breathing treatments and oxygen therapy. Bronchodilators. Call pulmonary consult. Order echocardiogram Labs and medication were reviewed.. Continue same treatment. Continue with symptomatic treatment. Resume home medication. Monitor lytes and vitals. DVT and GI prophylaxis. Further recommendations of the clinical course of the patient DVT prophylaxis: Subcutaneous Lovenox GI Prophylaxis: Pepcid PT/OT: Pending Prognosis is guarded
[2019-01-17 11:07] LABS: Glucose,Whole Blood 136 mg/dL (75-99)
--- NOTE | 2019-01-17 17:01 | P.CNPUL ---
History of Present Illness Consult date: 01/17/19 Reason for consult: dyspnea, COPD History of present illness: This is a 78-year-old male patient with known history of COPD and addition to multiple medical problems most significant of which is coronary artery disease, previous bypass surgery, current artery disease, and other comorbidities such as CHF, hypothyroidism, hyperlipidemia, chronic anxiety/depression. The patient was in the hospital recently for an acute COPD exacerbation. Note that his FEV1 at baseline is around 39% of predicted and the patient is demented on a combination of Spiriva and Symbicort in addition to abuse albuterol on outpatient basis. The patient was came in because of worsening shortness of breath. He was doing some cleaning and mopping the floor and cleaning the carpets where he got exposed to dust and following that he became quite short of breath bronchospastic and wheezy and he end up coming to the hospital for an acute COPD exacerbation. No significant sputum production. No hemoptysis. No pleurisy. No chest pain. No significant leukocytosis. Chest x-ray showing COPD with some limited subsegmental atelectatic changes in lung bases bilat erally without evidence of any failure Review of Systems GENERAL: The patient is alert and oriented x3, not in any acute distress. Well developed, well nourished. Head exam was generally normal. There was no scleral icterus or corneal arcus. Mucous membranes were moist. HEENT: Pupils are round and equally reacting to light. EOMI. No scleral icterus. No conjunctival pallor. Normocephalic, atraumatic. No pharyngeal erythema. No thyromegaly. CARDIOVASCULAR: S1 and S2 present. No murmurs, rubs, or gallops. PULMONARY: minimal basilar crackles on the left side, diminished breath sound bilaterally along with some scattered expiratory wheezes without the lung estrada ABDOMEN: Soft, nontender, nondistended, normoactive bowel sounds. No palpable organomegaly. MUSCULOSKELETAL: No joint swelling or deformity. EXTREMITIES: No cyanosis, clubbing, or pedal edema. NEUROLOGICAL: Gross neurological examination did not reveal any focal deficits. SKIN: No rashes. Examination of the skin revealed no evidence of significant rashes, suspicious appearing nevi or other concerning lesions. Past Medical History Past Medical History: Coronary Artery Disease (CAD), Chest Pain / Angina, COPD, Hyperlipidemia, Hypertension, Osteoarthritis (OA), Pneumonia, Thyroid Disorder Additional Past Medical History / Comment(s): COPD, coronary artery disease with previous quadruple bypass surgery, hypertension, hyperlipidemia, hypothyroidism, chronic back pain, nephrolithiasis, chronic arthritic pain involving the back and shoulder, History of Any Multi-Drug Resistant Organisms: None Reported Past Surgical History: Coronary Bypass/CABG, Heart Catheterization Additional Past Surgical History / Comment(s): Coronary artery bypass surgery and the patient had four-vessel bypass, back surgery, ORIF of the left arm/hand area and cataract surgery with intraocular lens placement, heart cath with 3 stents Past Anesthesia/Blood Transfusion Reactions: Previous Problems w/ Anesthesia Additional Past Anesthesia/Blood Transfusion Reaction / Comment(s): DIFFICULTY WAKING UP Past Psychological History: No Psychological Hx Reported Additional Psychological History / Comment(s): 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 Patient uses a walker and cane at home. Smoking Status: Former smoker Past Alcohol Use History: Occasional Additional Past Alcohol Use History / Comment(s): STARTED AT AGE 10- GOT UP 10 1.5 PPD, QUIT 40 YEARS AGO. Jame reports drinking a beer now adn then. Past Drug Use History: None Reported - Past Family History Father History Unknown: Yes Family Medical History: No Reported History Additional Family Medical History / Comment(s): Vang Mother Family Medical History: Asthma, COPD Medications and Allergies Home Medications Medication Instructions Recorded Confirmed Type Aspirin EC [Ecotrin Low Dose] 81 mg PO DAILY 10/11/15 01/16/19 History Atorvastatin [Lipitor] 40 mg PO HS 10/11/15 01/16/19 History Levothyroxine Sodium [Synthroid] 50 mcg PO DAILY 10/11/15 01/16/19 History Potassium Chloride ER [K-Dur 20] 20 meq PO DAILY 10/11/15 01/16/19 History Tiotropium [place] [Spiriva 1 puff INHALATION RT-DAILY 10/11/15 01/16/19 History Respimat] Budesonide/Formoterol Fumarate 2 puff INHALATION RT-BID 03/26/18 01/16/19 History [Symbicort 160-4.5 Mcg Inhaler] Nitroglycerin 0.4 mg SL Q5M PRN 03/26/18 01/16/19 History Pantoprazole [Protonix] 40 mg PO DAILY 03/26/18 01/16/19 History Tamsulosin HCl [Flomax] 0.4 mg PO DAILY 03/26/18 01/16/19 History Triamcinolone 0.1% Cream [Kenalog 1 applic TOPICAL BID 03/26/18 01/16/19 History 0.1% Cream] rOPINIRole HCL [Requip] 1 mg PO QAM 03/26/18 01/17/19 History HYDROcodone/APAP 10-325MG [[place] 1 tab PO TID PRN 10/07/18 01/16/19 History 10-325] Magnesium Oxide 400 mg PO HS 10/07/18 01/16/19 History Escitalopram Oxalate [Lexapro] 10 mg PO DAILY 10/08/18 01/16/19 History Ketoconazole [Ketoconazole 2%] 1 applic TOPICAL DAILY 10/08/18 01/16/19 History Albuterol Nebulized [Ventolin 2.5 mg INHALATION RT-TID #0 10/11/18 01/16/19 Rx Nebulized] Albuterol Inhaler [Ventolin Hfa 2 puff INHALATION RT-Q6H PRN 01/16/19 01/16/19 History Inhaler] Doxycycline Monohydrate [Monodox] 100 mg PO BID 01/16/19 01/16/19 History Furosemide [Lasix] 20 mg PO DAILY 01/16/19 01/16/19 History Metoprolol Succinate (ER) [Toprol 25 mg PO DAILY 01/16/19 01/16/19 History Xl] Nystatin 100,000Unit/gm Cream 1 applic TOPICAL BID 01/16/19 01/16/19 History [Mycostatin Cream] predniSONE See Taper PO DIRECTED 01/16/19 01/16/19 History Allergies Allergy/AdvReac Type Severity Reaction Status Date / Time morphine Allergy Unknown Verified 01/16/19 16:06 iodine AdvReac Rapid Verified 01/16/19 16:06 Heart Rate Physical Exam Vitals: Vital Signs Temp Pulse Pulse Resp BP BP Pulse Ox 01/17/19 16:20 98.4 F 160 H 22 130/83 98 01/17/19 15:13 80 01/17/19 15:04 80 01/17/19 13:26 80 01/17/19 13:16 78 01/17/19 12:40 97.8 F 77 20 148/77 94 L 01/17/19 08:02 78 01/17/19 07:52 75 96 01/17/19 05:48 97.5 F L 69 16 167/91 98 01/17/19 05:20 167/84 97 01/16/19 23:30 73 159/75 97 01/16/19 23:18 77 01/16/19 22:29 180 H 01/16/19 22:26 91 01/16/19 22:25 164 H 24 145/95 01/16/19 20:10 97.6 F 81 20 156/84 94 L 01/16/19 19:17 85 18 01/16/19 19:07 83 18 01/16/19 19:00 78 18 142/79 96 01/16/19 18:30 78 22 145/75 97 01/16/19 18:00 81 20 133/116 95 01/16/19 17:30 82 20 139/87 97 01/16/19 17:01 82 18 01/16/19 17:00 89 22 149/82 97 Intake and Output 01/17/19 01/17/19 01/17/19 06:59 14:59 22:59 Intake Total 1340 Output Total 1200 Balance 140 Intake: Intake, IV Titration 800 Amount Sodium Chloride 0.9% 1, 800 000 ml @ 100 mls/hr IV . Q10H [facility] Rx#:[id number] Oral 540 Output: Urine 1200 Other: Voiding Method Urinal # Voids 3 GENERAL: The patient is alert and oriented x3, not in any acute distress. Well developed, well nourished. Head exam was generally normal. There was no scleral icterus or corneal arcus. Mucous membranes were moist. HEENT: Pupils are round and equally reacting to light. EOMI. No scleral icterus. No conjunctival pallor. Normocephalic, atraumatic. No pharyngeal erythema. No thyromegaly. CARDIOVASCULAR: S1 and S2 present. No murmurs, rubs, or gallops. PULMONARY: Chest is clear to auscultation, Bilateral expiratory wheezing, Harsh breath sounds ABDOMEN: Soft, nontender, nondistended, normoactive bowel sounds. No palpable organomegaly. MUSCULOSKELETAL: No joint swelling or deformity. EXTREMITIES: No cyanosis, clubbing, . Bilateral mild to moderate leg edema NEUROLOGICAL: Gross neurological examination did not reveal any focal deficits. SKIN: No rashes.Examination of the skin revealed no evidence of significant rashes, suspicious appearing nevi or other concerning lesions. Results - Laboratory Findings CBC and BMP: 01/16/19 15:56 01/16/19 15:56 PT/INR, D-dimer PT 10.0 sec (9.0-12.0) 01/16/19 15:56 INR 0.9 (<1.2) 01/16/19 15:56 Abnormal lab findings: Abnormal Labs 01/16/19 01/16/19 01/17/19 15:56 15:56 07:05 RBC 3.47 L Hgb 10.5 L Hct 31.2 L Lymphocytes # 0.5 L Sodium 127 L Chloride 89 L Carbon Dioxide 32 H Glucose 132 H POC Glucose (mg/dL) 150 H Total Protein 6.0 L 01/17/19 11:06 RBC Hgb Hct Lymphocytes # Sodium Chloride Carbon Dioxide Glucose POC Glucose (mg/dL) 136 H Total Protein - Diagnostic Findings Chest x-ray: image reviewed Assessment and Plan Plan: 1 acute COPD exacerbation with secondary shortness of breath 2 acute on chronic hypoxic respiratory failure 3 severe COPD with an FEV1 of 39% baseline 4 coronary artery disease presents bypass surgery 5 left carotid artery stenosis 6 hypertension 7 hyperlipidemia 8 hypothyroidism 9 chronic back pain Plan Agree on the current treatment. Continue Symbicort. Continue DuoNeb treatments around the clock. IV Solu Medrol 60 mg every 6 hours. Chest x-ray is not showing any acute evidence of pneumonia and the patient is currently on empiric antibiotic coverage with doxycycline. Allow the patient to use his home Spiriva. We'll continue to follow.
[2019-01-17] MEDS ORDERED: METOPROLOL TARTRATE 25 MG TAB PO STA (17:23)
[2019-01-17 17:32] LABS: Glucose,Whole Blood 188 mg/dL (75-99)
[2019-01-17] MEDS: MAGNESIUM OXIDE 400 MG TAB PO SCH (17:40)
[2019-01-17] MEDS ORDERED: SODIUM CHLORIDE 0.9% 1,000 ML IV SCH (17:45)
--- NOTE | 2019-01-17 18:33 | ECHOF ---
Referral Reason:Rule out heart disease MEASUREMENTS -------- HEIGHT: 162.6 cm WEIGHT: 68.0 kg BP: 167/91 IVSd: 1.5 cm (0.6 - 1.1) LVIDd: 4.3 cm (3.9 - 5.3) LVPWd: 1.4 cm (0.6 - 1.1) IVSs: 1.8 cm LVIDs: 2.7 cm LVPWs: 1.8 cm LA Diam: 3.7 cm (2.7 - 3.8) RVIDd: 3.6 cm (< 3.3) LAESV Index (A-L): 43.76 ml/m Ao Diam: 3.7 cm (2.0 - 3.7) AV Cusp: 1.8 cm (1.5 - 2.6) MV E Natan: 1.02 m/s MV DecT: 244 ms MV A Natan: 1.17 m/s MV E/A Ratio: 0.87 AV maxP.67 mmHg AV meanP.79 mmHg RAP: 5.00 mmHg RVSP: 30.58 mmHg FINDINGS -------- Sinus rhythm. This was a technically difficult study with suboptimal views. The left ventricular size is normal. There is moderate concentric left ventricular hypertrophy. O verall left ventricular systolic function is normal with, an EF between 55 - 60 %. The right ventricle is mildly enlarged. LA is severely dilated >40 ml/m2 The right atrium is normal in size. 3 ml of Lumason was utilized for enhancement of images. There is mild aortic valve sclerosis. Mild mitral annular calcification present. Mild mitral regurgitation is present. Mild tricuspid regurgitation present. Right ventricular systolic pressure is normal at < 35 mmHg. There is no pulmonic regurgitation present. The aortic root size is normal. Normal inferior vena cava with normal inspiratory collapse consistent with estimated right atrial pre ssure of 5 mmHg. The inferior vena cava is mildly dilated. There is no pericardial effusion. CONCLUSIONS -------- 1. Sinus rhythm. 2. This was a technically difficult study with suboptimal views. 3. The left ventricular size is normal. 4. There is moderate concentric left ventricular hypertrophy. 5. Overall left ventricular systolic function is normal with, an EF between 55 - 60 %. 6. The right ventricle is mildly enlarged. 7. LA is severely dilated >40 ml/m2 8. The right atrium is normal in size. 9. 3 ml of Lumason was utilized for enhancement of images. 10. There is mild aortic valve sclerosis. 11. Mild mitral annular calcification present. 12. Mild mitral regurgitation is present. 13. Mild tricuspid regurgitation present. 14. Right ventricular systolic pressure is normal at < 35 mmHg. 15. There is no pulmonic regurgitation present. 16. The aortic root size is normal. 17. Normal inferior vena cava with normal inspiratory collapse consistent with estimated right atrial pressure of 5 mmHg. 18. The inferior vena cava is mildly dilated. 19. There is no pericardial effusion. SLAB STRIPPER: Princess Rabago RDCS
[2019-01-17] MEDS: SYMBICORT 160-4.5 MCG INHALER INHALATION SCH (19:12)
[2019-01-17] MEDS: ATORVASTATIN 40 MG TAB PO SCH (20:51)
[2019-01-17] MEDS: FAMOTIDINE 20 MG/2 ML VIAL IV SCH (20:52)
[2019-01-17 20:54] LABS: Glucose,Whole Blood 166 mg/dL (75-99)
[2019-01-17] MEDS ORDERED: HEPARIN SODIUM,PORCINE 5,000 UNIT/ML 1 ML VIAL SQ SCH (21:00)
[2019-01-18] MEDS: methylPREDNISolone SOD SUCCI 125 MG/2 ML VIAL IV SCH ×4 (05:48→23:31)
[2019-01-18] MEDS: LEVOTHYROXINE 50 MCG TAB PO SCH (05:48)
[2019-01-18 07:05] LABS: Glucose,Whole Blood 152 mg/dL (75-99)
[2019-01-18] MEDS: SYMBICORT 160-4.5 MCG INHALER INHALATION SCH ×2 (07:14→19:56)
[2019-01-18] MEDS: IPRATROPIUM-ALBUTEROL 3 ML NEB INHALATION SCH ×5 (07:14→23:21)
[2019-01-18] MEDS: INSULIN ASPART (NovoLOG) 100 UNIT/ML VIAL SQ SCH ×4 (07:40→21:41)
[2019-01-18] MEDS: FAMOTIDINE 20 MG/2 ML VIAL IV SCH (07:40)
[2019-01-18] MEDS: ASPIRIN 81 MG PO SCH (07:41)
[2019-01-18] MEDS: PANTOPRAZOLE 40 MG TABLET PO SCH (07:41)
[2019-01-18] MEDS: FUROSEMIDE 20 MG TAB PO SCH (07:41)
[2019-01-18] MEDS: TAMSULOSIN 0.4 MG CAP.ER.24H PO SCH (07:41)
[2019-01-18] MEDS: METOPROLOL SUCCINATE (ER) 25 MG TAB.ER.24H PO SCH (07:41)
[2019-01-18] MEDS: ESCITALOPRAM 10 MG TAB PO SCH (07:42)
[2019-01-18] MEDS: DOXYCYCLINE 100 MG CAP PO SCH ×2 (07:42→21:41)
[2019-01-18] MEDS ORDERED: NON-FORMULARY DRUG (Tiotropium Bromide [Spiriva Respimat] 1 PUFF) INHALATION SCH (08:00)
[2019-01-18] MEDS: HYDROcodone/APAP 10-325MG 1 EACH TAB PO PRN (08:17)
--- NOTE | 2019-01-18 11:00 | P.PN ---
Subjective This is a pleasant 78 years old male with past medical history of advanced COPD, coronary artery disease status post bypass surgery, hypertension, h yperlipidemia, hyperthyroidism, chronic back pain. Presents with dyspnea, 456 days, associated with cough and yellow-green phlegm but no chest pain. Patient is on home oxygen at 2 L via nasal cannula. Vitals Table, blood pressure. He is saturating 96% on 4 L oxygen. Labs reviewed, CBC is unremarkable. Sodium 127, creatinine 0.7. Troponins are negative. Chest x-ray: Pulmonary fibrosis and probable COPD, atelectasis but no CHF. 01/01/2019 Patient yesterday developed an episode of tachycardia up to 160 bpm, in which she was asymptomatic with a stable blood pressure, his heart rate was controlled with 1 dose of metoprolol 25 mg, looking at the monitor and loose irregular and with no P wave suggestive of atrial fibrillation. His vitals currently show and heart rate of 62 with blood pressure 149/81. Transient 98% on 3 L nasal cannula. Cardiology team has been consulted for his episodic possible atrial fibrillation. Patient still have some dyspnea although is improving, her meta stases on IV Solu-Medrol and doxycycline. Sodium 127, replaced sodium is pending. Sugar is controlled Patient at home use 2 L of oxygen via NC. Also patient complains from chronic back pain which was a bit worse this morning and he got one extra doses of [place]. CONSTITUTIONAL: No fever, no malaise, no fatigue. HEENT: No recent visual problems or hearing problems. Denied any sore throat. CARDIOVASCULAR: No orthopnea, PND, no palpitations, no syncope. PULMONARY: No shortness of breath, no cough, no hemoptysis. GASTROINTESTINAL: No diarrhea, no nausea, no vomiting, no abdominal pain. No rmoactive bowel sounds. NEUROLOGICAL: No headaches, no weakness, no numbness. HEMATOLOGICAL: Denies any bleeding or petechiae. GENITOURINARY: Denies any burning micturition, frequency, or urgency. MUSCULOSKELETAL/RHEUMATOLOGICAL: Denies any joint pain, swelling, or any muscle pain. ENDOCRINE: Denies any polyuria or polydipsia. Medication: Albuterol, aspirin, Lipitor, Symbicort, doxycycline, Lexapro, Lasix, Solu-Medrol, [place], Synthroid, magnesium oxide, metoprolol, nitroglycerin, Protonix, Requip, Flomax. Objective - Vital Signs Vital signs: Vital Signs Temp 97.4 F L 01/18/19 05:00 Pulse 64 01/18/19 07:27 Resp 17 01/18/19 05:00 BP 149/81 01/18/19 05:00 Pulse Ox 98 01/18/19 07:15 Intake & Output 01/17/19 01/18/19 01/18/19 18:59 06:59 18:59 Intake Total 480 Balance 480 Intake: Oral 480 Other: Voiding Method Urinal # Voids 3 1 - Exam GENERAL: The patient is alert and oriented x3, not in any acute distress. Well developed, well nourished. HEENT: Pupils are round and equally reacting to light. EOMI. No scleral icterus. No conjunctival pallor. Normocephalic, atraumatic. No pharyngeal erythema. No thyromegaly. CARDIOVASCULAR: S1 and S2 present. No murmurs, rubs, or gallops. -PULMONARY: Chest is clear to auscultation, Bilateral expiratory wheezing, Harsh breath sounds ABDOMEN: Soft, nontender, nondistended, normoactive bowel sounds. No palpable organomegaly. MUSCULOSKELETAL: No joint swelling or deformity. -EXTREMITIES: No cyanosis, clubbing, . Bilateral mild to moderate leg edema NEUROLOGICAL: Gross neurological examination did not reveal any focal deficits. SKIN: No rashes. - Labs CBC & Chem 7: 01/16/19 15:56 01/16/19 15:56 Labs: Abnormal Lab Results - Last 24 Hours (Table) 01/17/19 01/17/19 01/17/19 Range/Units 11:06 17:21 20:38 POC Glucose (mg/dL) 136 H 188 H 166 H (75-99) mg/dL 01/18/19 Range/Units 07:03 POC Glucose (mg/dL) 152 H (75-99) mg/dL Assessment and Plan Assessment: Acute COPD exacerbation, history of advanced COPD acute on Chronic hypoxic respiratory failure Mostly episodic atrial fibrillation, currently heart rate is controlled. Patient is not on anticoagulation History of coronary artery disease, status post CABG Left carotid artery stenosis Hypertension Hyperlipidemia Hypothyroidism Chronic back pain Plan: This is a pleasant 78 years old male presents with acute COPD exacerbation, continue with steroids, breathing treatments and oxygen therapy. Bronchodilators. Call pulmonary consult. echocardiogram reviewed. Labs and medication were reviewed.. Continue same treatment. Continue with symptomatic treatment. Resume home medication. Monitor lytes and vitals. DVT and GI prophylaxis. Further recommendations of the clinical course of the patient DVT prophylaxis: Subcutaneous Lovenox GI Prophylaxis: Pepcid PT/OT: Pending Prognosis is guarded
[2019-01-18 11:30] LABS: Glucose,Whole Blood 170 mg/dL (75-99)
[2019-01-18 11:57] LABS: Anion Gap 3 mmol/L; Blood Urea Nitrogen 22 mg/dL (9-20); Calcium 8.4 mg/dL (8.4-10.2); Carbon Dioxide 36 mmol/L (22-30); Chloride 87 mmol/L (98-107); Glucose 126 mg/dL (74-99); Potassium 4.3 mmol/L (3.5-5.1); Sodium 126 mmol/L (137-145)
--- NOTE | 2019-01-18 12:13 | P.PN ---
Subjective Progress Note Date: 01/18/19 Principal diagnosis: Dyspnea, COPD exacerbation This is a 78-year-old male patient with known history of COPD and addition to multiple medical problems most significant of which is coronary artery disease, previous bypass surgery, current artery disease, and other comorbidities such as CHF, hypothyroidism, hyperlipidemia, chronic anxiety/depression. The patient was in the hospital recently for an acute COPD exacerbation. Note that his FEV1 at baseline is around 39% of predicted and the patient is demented on a combination of Spiriva and Symbicort in addition to abuse albuterol on outpatient basis. The patient was came in because of worsening shortness of breath. He was doing some cleaning and mopping the floor and cleaning the carpets where he got exposed to dust and following that he became quite short of breath bronchospastic and wheezy and he end up coming to the hospital for an acute COPD exacerbation. No significant sputum production. No hemoptysis. No pleurisy. No chest pain. No significant leukocytosis. Chest x-ray showing COPD with some limited subsegmental atelectatic changes in lung bases bilaterally without evidence of any failure On 01/18/2019 patient seen in follow-up on medical surgical floor. He sitting up in the chair, in no acute distress, he states his breathing is improving, lung sounds reveal bibasilar crackles, no significant wheezes. Maintenance on supplemental oxygen, currently at 3 L, with a pulse ox of 98%, no fever or chills, patient did have an hour long run of A. fib with RVR with a rate of 168 last night, and had another episode the night before. Patient has been switched to Toprol-XL 25 mg daily, and cardiology has been consulted. No complaints of chest pain, patient is currently back in sinus rhythm with a controlled rate. Only occasional cough, no significant chest congestion. Mild pretibial edema. Influenza screen was negative. His labs have been reviewed, and showed sodium of 126, potassium is 4.3, chloride is 87, CO2 is 36, BUN is 22 and creatinine 0.81. ProBNP is 1630. Objective - Vital Signs Vital signs: Vital Signs Temp 97.4 F L 01/18/19 05:00 Pulse 66 01/18/19 11:17 Resp 17 01/18/19 05:00 BP 149/81 01/18/19 05:00 Pulse Ox 98 01/18/19 07:15 Intake & Output 01/17/19 01/18/19 01/18/19 18:59 06:59 18:59 Intake Total 480 Balance 480 Intake: Oral 480 Other: Voiding Method Urinal # Voids 3 1 - Exam GENERAL EXAM: Alert, pleasant, 78-year-old white male, on 3 L of oxygen, calm and comfortable, sitting in the chair, comfortable in no apparent distress. HEAD: Normocephalic/atraumatic. EYES: Normal reaction of pupils, equal size. Conjunctiva pink, sclera white. NOSE: Clear with pink turbinates. THROAT: No erythema or exudates. NECK: No masses, no JVD, no thyroid enlargement, no adenopathy. CHEST: No chest wall deformity. Symmetrical expansion. LUNGS: Equal air entry with no crackles, wheeze, rhonchi or dullness. CVS: Regular rate and rhythm, normal S1 and S2, no gallops, no murmurs, no rubs ABDOMEN: Soft, nontender. No hepatosplenomegaly, normal bowel sounds, no guarding or rigidity. EXTREMITIES: No clubbing, mild pretibial edema, no cyanosis, 2+ pulses and upper and lower extremities. MUSCULOSKELETAL: Muscle strength and tone normal. SPINE: No scoliosis or deformity SKIN: No rashes CENTRAL NERVOUS SYSTEM: Alert and oriented -3. No focal deficits, tone is normal in all 4 extremities. PSYCHIATRIC: Alert and oriented -3. Appropriate affect. Intact judgment and insight. - Labs CBC & Chem 7: 01/16/19 15:56 01/18/19 11:34 Labs: Abnormal Lab Results - Last 24 Hours (Table) 01/17/19 01/17/19 01/18/19 Range/Units 17:21 20:38 07:03 Sodium (137-145) mmol/L Chloride (98-107) mmol/L Carbon Dioxide (22-30) mmol/L BUN (9-20) mg/dL Glucose (74-99) mg/dL POC Glucose (mg/dL) 188 H 166 H 152 H (75-99) mg/dL 01/18/19 01/18/19 Range/Units 11:29 11:34 Sodium 126 L (137-145) mmol/L Chloride 87 L (98-107) mmol/L Carbon Dioxide 36 H (22-30) mmol/L BUN 22 H (9-20) mg/dL Glucose 126 H (74-99) mg/dL POC Glucose (mg/dL) 170 H (75-99) mg/dL Assessment and Plan Plan: Assessment: 1 acute COPD exacerbation with secondary shortness of breath 2 acute on chronic hypoxic respiratory failure 3 severe COPD with an FEV1 of 39% baseline 4 coronary artery disease presents bypass surgery 5 left carotid artery stenosis 6 hypertension 7 hyperlipidemia 8 hypothyroidism 9 chronic back pain 10 2 separate episodes of A. fib RVR, self-limiting, patient had converted back to sinus rhythm Plan: Continue current medical treatment, nebulized bronchodilators, IV steroids, empiric antibiotics, Symbicort. Patient is awaiting evaluation by cardiology for episode of A. fib RVR. Currently sinus rhythm, denies any chest pain, has mild pretibial edema. Is on oral diuretics. We'll continue to follow I performed a history & physical examination of the patient and discussed their management with my nurse practitioner, Evonne Peters. I reviewed the nurse practitioner's note and agree with the documented findings and plan of care. Lung sounds are positive for bibasilar crackles. The findings and the impression was discussed with the patient. I attest to the documentation by the nurse practitioner. Time with Patient: Less than 30
--- NOTE | 2019-01-18 14:37 | P.CRDCN ---
History of Present Illness History of present illness: This is a pleasant 70-year-old male past medical history significant for coronary artery disease status post bypass grafting and subsequent stent placement to his grafts, COPD, hypertension, dyslipidemia and peripheral vascular disease. He states he is scheduled to have a stent placed in his left carotid artery next month. He follows with Dr. Amado for cardiology and Sonny. We have been asked to see him in consultation for tachycardia noted on telemetry. He presented to the hospital for symptoms of cough and shortness of breath. He has been diagnosed with an acute exacerbation of chronic COPD and has been started on antibiotics, steroids and breathing treatments. He is seen and examined resting comfortably in bed in no acute distress. He continues to complain of shortness of breath but states overall he seems to be improving mildly. He denies symptoms of chest discomfort, nausea, vomiting or diaphoresis. He did feel his heart racing and 2 separate occasions yesterday. He states this does happen to him intermittently at home if he doesn't take his Toprol on time. He denies ever being diagnosed with any sort of an arrhythmia in the past. He is not on long-term anticoagulation. EKG on admission revealed sinus mechanism with right bundle branch block. Chest x-ray reveals pulmonary fibrosis with coarse interstitial markings. Laboratory data reviewed, WBC 8.0, hemoglobin 10.5, platelets 212, sodium 126, potassium 4.3, magnesium 2.0, cardiac enzymes negative 1, NT proBNP 1630, creatinine 0.81. Current cardiac medications include aspirin 81 mg daily, Lasix 20 mg daily, Toprol 25 mg daily, potassium chloride 20 daily, atorvastatin 40 mg daily, magnesium supplementation 400 mg daily. At the time of my exam: CONSTITUTIONAL: Denies fever. Denies chills. EYES: Denies blurred vision. Denies vision changes. Denies eye pain. EARS, NOSE, MOUTH & THROAT: Denies headache. Denies sore throat. Denies ear pain. CARDIOVASCULAR: Denies chest pain. Complains of shortness of breath. Denies orthopnea. Denies PND. Denies palpitations. RESPIRATORY: Complains of cough. GASTROINTESTINAL: Denies abdominal pain. Denies diarrhea. Denies constipation. Denies nausea. Denies vomiting. MUSCULOSKELETAL: Denies myalgias. INTEGUMENTARY: Denies pruitis. Denies rash. NEUROLOGIC: Denies numbness. Denies tingling. Denies weakness. PSYCHIATRIC: Denies anxiety. Denies depression. ENDOCRINE: Denies fatigue. Denies weight change. Denies polydipsia. Denies polyurina. GENITOURINARY: Denies burning, hematuria or urgency with micturation. HEMATOLOGIC: Denies history of anemia. Denies bleeding. Blood pressure 160/79 heart rate 81 afebrile maintaining oxygen saturation on nasal cannula GENERAL: This is a 78-year-old male in no apparent distress at the time of my examination. HEENT: Head is atraumatic, normocephalic. Pupils are equal, round. Sclerae a nicteric. Conjunctivae are clear. Mucous membranes of the mouth are moist. Neck is supple. There is no jugular venous distention. Left carotid bruit is heard. LUNGS: Bibasilar rales, scattered rhonchi and faint expiratory wheezing noted. No chest wall tenderness is noted on palpation or with deep breathing. HEART: Regular rate and rhythm without murmurs, rubs or gallops. S1 and S2 heard. Distant heart sounds. ABDOMEN: Soft, nontender. Bowel sounds are heard. No organomegaly noted. EXTREMITIES: No evidence of peripheral edema and no calf tenderness noted. VASCULAR: Radial and dorsalis pedis pulses palpated, no evidence of clubbing. NEUROLOGIC: Patient is awake, alert and oriented x3. ASSESSMENT New onset paroxysmal atrial fibrillation with rapid ventricular response. Pt has converted to sinus mechanism. Acute exacerbation of COPD Acute on chronic respiratory failure Pulmonary fibrosis Hyponatremia History of coronary artery disease status post bypass grafting and subsequent stent placement in the graft Peripheral vascular disease, patient scheduled to have stent placed in the left carotid artery next month Hypertension Dyslipidemia PLAN Request records from his primary manager of recruiting, Dr. Gaston. Check TSH. Initiate on verapamil 120 mg daily and discontinue toprol. Recommend care home anticoagulation for thromboembolic protection. We will ask Case management to check the cost of Eliquis 5 mg BID, otherwise coumadin will be used. Further recommendations to follow. Thank you kindly for this consultation. Nurse Practitioner note has been reviewed, I agree with a documented findings and plan of care. Patient was seen and examined. Past Medical History Past Medical History: Coronary Artery Disease (CAD), Chest Pain / Angina, COPD, Hyperlipidemia, Hypertension, Osteoarthritis (OA), Pneumonia, Thyroid Disorder Additional Past Medical History / Comment(s): COPD, coronary artery disease with previous quadruple bypass surgery, hypertension, hyperlipidemia, hypothyroidism, chronic back pain, nephrolithiasis, chronic arthritic pain involving the back and shoulder, History of Any Multi-Drug Resistant Organisms: None Reported Past Surgical History: Coronary Bypass/CABG, Heart Catheterization Additional Past Surgical History / Comment(s): Coronary artery bypass surgery and the patient had four-vessel bypass, back surgery, ORIF of the left arm/hand area and cataract surgery with intraocular lens placement, heart cath with 3 stents Past Anesthesia/Blood Transfusion Reactions: Previous Problems w/ Anesthesia Additional Past Anesthesia/Blood Transfusion Reaction / Comment(s): DIFFICULTY WAKING UP Past Psychological History: No Psychological Hx Reported Additional Psychological History / Comment(s): 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 Patient uses a walker and cane at home. Smoking Status: Former smoker Past Alcohol Use History: Occasional Additional Past Alcohol Use History / Comment(s): STARTED AT AGE 10- GOT UP 10 1.5 PPD, QUIT 40 YEARS AGO. Jame reports drinking a beer now adn then. Past Drug Use History: None Reported - Past Family History Father History Unknown: Yes Family Medical History: No Reported History Additional Family Medical History / Comment(s): Vang Mother Family Medical History: Asthma, COPD Medications and Allergies Home Medications Medication Instructions Recorded Confirmed Type Aspirin EC [Ecotrin Low Dose] 81 mg PO DAILY 10/11/15 01/16/19 History Atorvastatin [Lipitor] 40 mg PO HS 10/11/15 01/16/19 History Levothyroxine Sodium [Synthroid] 50 mcg PO DAILY 10/11/15 01/16/19 History Potassium Chloride ER [K-Dur 20] 20 meq PO DAILY 10/11/15 01/16/19 History Tiotropium [place] [Spiriva 1 puff INHALATION RT-DAILY 10/11/15 01/16/19 History Respimat] Budesonide/Formoterol Fumarate 2 puff INHALATION RT-BID 03/26/18 01/16/19 History [Symbicort 160-4.5 Mcg Inhaler] Nitroglycerin 0.4 mg SL Q5M PRN 03/26/18 01/16/19 History Pantoprazole [Protonix] 40 mg PO DAILY 03/26/18 01/16/19 History Tamsulosin HCl [Flomax] 0.4 mg PO DAILY 03/26/18 01/16/19 History Triamcinolone 0.1% Cream [Kenalog 1 applic TOPICAL BID 03/26/18 01/16/19 History 0.1% Cream] rOPINIRole HCL [Requip] 1 mg PO QAM 03/26/18 01/17/19 History HYDROcodone/APAP 10-325MG [Entriken 1 tab PO TID PRN 10/07/18 01/16/19 History 10-325] Magnesium Oxide 400 mg PO HS 10/07/18 01/16/19 History Escitalopram Oxalate [Lexapro] 10 mg PO DAILY 10/08/18 01/16/19 History Ketoconazole [Ketoconazole 2%] 1 applic TOPICAL DAILY 10/08/18 01/16/19 History Albuterol Nebulized [Ventolin 2.5 mg INHALATION RT-TID #0 10/11/18 01/16/19 Rx Nebulized] Albuterol Inhaler [Ventolin Hfa 2 puff INHALATION RT-Q6H PRN 01/16/19 01/16/19 History Inhaler] Doxycycline Monohydrate [Monodox] 100 mg PO BID 01/16/19 01/16/19 History Furosemide [Lasix] 20 mg PO DAILY 01/16/19 01/16/19 History Metoprolol Succinate (ER) [Toprol 25 mg PO DAILY 01/16/19 01/16/19 History Xl] Nystatin 100,000Unit/gm Cream 1 applic TOPICAL BID 01/16/19 01/16/19 History [Mycostatin Cream] predniSONE See Taper PO DIRECTED 01/16/19 01/16/19 History Allergies Allergy/AdvReac Type Severity Reaction Status Date / Time morphine Allergy Unknown Verified 01/16/19 16:06 iodine AdvReac Rapid Verified 01/16/19 16:06 Heart Rate Physical Exam Vitals: Vital Signs Temp Pulse Pulse Resp BP Pulse Ox 01/18/19 12:12 97.8 F 81 20 160/79 96 01/18/19 11:17 66 01/18/19 11:06 66 01/18/19 07:27 64 01/18/19 07:15 62 98 01/18/19 05:00 97.4 F L 68 17 149/81 99 01/17/19 21:00 97.5 F L 77 18 141/70 97 01/17/19 19:13 86 01/17/19 16:20 98.4 F 160 H 22 130/83 98 01/17/19 15:13 80 01/17/19 15:04 80 01/17/19 13:26 80 01/17/19 13:16 78 Intake and Output 01/17/19 01/18/19 01/18/19 22:59 06:59 14:59 Intake Total 480 Balance 480 Intake: Oral 480 Other: Voiding Method Urinal # Voids 1 Results 01/16/19 15:56 01/18/19 11:34 Comprehensive Metabolic Panel 01/18/19 Range/Units 11:34 Sodium 126 L (137-145) mmol/L Potassium 4.3 (3.5-5.1) mmol/L Chloride 87 L (98-107) mmol/L Carbon Dioxide 36 H (22-30) mmol/L BUN 22 H (9-20) mg/dL Creatinine 0.81 (0.66-1.25) mg/dL Glucose 126 H (74-99) mg/dL Calcium 8.4 (8.4-10.2) mg/dL Current Medications Generic Name Dose Route Start Last Admin Trade Name Freq PRN Reason Stop Dose Admin Hydrocodone Bitart/Acetaminophen 1 each 01/17/19 01:15 01/18/19 08:17 Entriken 10 PO 1 each TID PRN Administration Pain Albuterol/Ipratropium 3 ml 01/16/19 20:00 01/18/19 11:06 Duoneb 0.5 Mg-3 Mg/3 Ml Soln INHALATION 3 ml RT-QID BRENDON Administration Aspirin 81 mg 01/17/19 09:00 01/18/19 07:41 Aspirin PO 81 mg DAILY BRENDON Administration Atorvastatin Calcium 40 mg 01/17/19 21:00 01/17/19 20:51 Lipitor PO 40 mg HS BRENDON Administration Budesonide/Formoterol Fumarate 2 puff 01/17/19 20:00 01/18/19 07:14 Symbicort 160-4.5 Mcg Inhaler INHALATION 2 puff RT-BID BRENDON Administration Doxycycline Monohydrate 100 mg 01/17/19 09:00 01/18/19 07:42 Vibramycin PO 01/21/19 21:01 100 mg BID BRENDON Administration Escitalopram Oxalate 10 mg 01/17/19 09:00 01/18/19 07:42 Lexapro PO 10 mg DAILY BRENDON Administration Furosemide 20 mg 01/17/19 09:00 01/18/19 07:41 Lasix PO 20 mg DAILY BRENDON Administration Sodium Chloride 1,000 mls @ 10 mls/hr 01/17/19 17:45 01/17/19 17:46 Saline 0.9% IV 10 mls/hr .Q24H BRENDON Administration Insulin Aspart 0 unit 01/17/19 07:30 01/18/19 07:40 Novolog SQ 1 unit ACHS BRENDON Administration Protocol Levothyroxine Sodium 50 mcg 01/17/19 09:00 01/18/19 05:48 Synthroid PO 50 mcg 0630 BRENDON Administration Magnesium Oxide 400 mg 01/17/19 18:00 01/17/19 17:40 Mag-Ox PO 400 mg 1800 BRENDON Administration Methylprednisolone Sodium Succinate 60 mg 01/17/19 00:00 01/18/19 05:48 Solu-Medrol IV 60 mg Q6HR BRENDON Administration Metoprolol Succinate 25 mg 01/17/19 09:00 01/18/19 07:41 Toprol Xl PO 25 mg DAILY BRENDON Administration Nitroglycerin 0.4 mg 01/17/19 08:18 Nitrostat SUBLINGUAL Q5M PRN Chest Pain Pantoprazole Sodium 40 mg 01/17/19 09:00 01/18/19 07:41 Protonix PO 40 mg [id number] BRENDON Administration Ropinirole HCl 1 mg 01/17/19 09:00 01/18/19 08:13 Requip PO 1 mg QAM BRENDON Administration Tamsulosin HCl 0.4 mg 01/17/19 09:00 01/18/19 07:41 Flomax PO 0.4 mg DAILY BRENDON Administration Intake and Output 01/17/19 01/18/19 01/18/19 22:59 06:59 14:59 Intake Total 480 Balance 480 Intake: Oral 480 Other: Voiding Method Urinal # Voids 1 01/16/19 15:56 01/18/19 11:34
[2019-01-18 14:44] LABS: T4, Free (Free Thyroxine) 1.81 ng/dL (0.78-2.19)
[2019-01-18 17:11] LABS: Glucose,Whole Blood 134 mg/dL (75-99)
[2019-01-18] MEDS: VERAPAMIL SR 120 MG TABLET.ER PO SCH (17:15)
[2019-01-18] MEDS: MAGNESIUM OXIDE 400 MG TAB PO SCH (17:15)
[2019-01-18 20:45] LABS: Glucose,Whole Blood 170 mg/dL (75-99)
[2019-01-18] MEDS: ATORVASTATIN 40 MG TAB PO SCH (21:41)
[2019-01-18] MEDS: APIXABAN 5 MG TAB PO SCH (21:41)
[2019-01-19] MEDS: IPRATROPIUM-ALBUTEROL 3 ML NEB INHALATION SCH ×5 (03:29→19:09)
[2019-01-19] MEDS: LEVOTHYROXINE 50 MCG TAB PO SCH (05:44)
[2019-01-19] MEDS: methylPREDNISolone SOD SUCCI 125 MG/2 ML VIAL IV SCH ×4 (05:45→23:34)
[2019-01-19 06:44] LABS: Glucose,Whole Blood 166 mg/dL (75-99)
[2019-01-19] MEDS: SYMBICORT 160-4.5 MCG INHALER INHALATION SCH ×2 (07:38→19:09)
--- NOTE | 2019-01-19 08:21 | XR ---
EXAMINATION TYPE: XR chest 2V DATE OF EXAM: 01/19/2019 COMPARISON: Chest x-ray January 16, 2019. CT chest October 08, 2018. HISTORY: Congestion. TECHNIQUE: Frontal and lateral views of the chest are obtained. FINDINGS: The osseous structures remaining demineralized. There is redemonstration of vertebroplasty at moderate compression fracture roughly T8 level. There is background chronic emphysematous change w ith chronic blunting posterior costophrenic angles consistent with focal pleural thickening. There is persistent right basilar linear scarring. There is increasing left basilar opacity. Old right food analyst ior mid rib fractures are seen. Post-CABG changes with mediastinal clips and sternal wires is present . Coronary stent RCA distribution noted on lateral view. Heart size is within normal limits with athe rosclerotic thoracic aorta. IMPRESSION: Chronic emphysematous change with pleural/parenchymal fibrosis, slight worsening left ba silar acute infiltrate and/or atelectasis on background chronic changes noted from most recent x-ray
[2019-01-19] MEDS: INSULIN ASPART (NovoLOG) 100 UNIT/ML VIAL SQ SCH ×4 (08:54→21:27)
[2019-01-19] MEDS: FUROSEMIDE 20 MG TAB PO SCH ×2 (08:55→09:47)
[2019-01-19] MEDS: ASPIRIN 81 MG PO SCH ×2 (08:55→09:47)
[2019-01-19] MEDS: PANTOPRAZOLE 40 MG TABLET PO SCH ×2 (08:55→09:47)
[2019-01-19] MEDS: TAMSULOSIN 0.4 MG CAP.ER.24H PO SCH ×2 (08:56→10:22)
[2019-01-19] MEDS: APIXABAN 5 MG TAB PO SCH ×3 (08:56→21:26)
[2019-01-19] MEDS: DOXYCYCLINE 100 MG CAP PO SCH ×2 (08:57→09:47)
[2019-01-19] MEDS: ESCITALOPRAM 10 MG TAB PO SCH ×2 (08:57→09:47)
[2019-01-19] MEDS: VERAPAMIL SR 120 MG TABLET.ER PO SCH ×2 (08:57→09:29)
[2019-01-19] MEDS: VERAPAMIL SR 180 MG TABLET.ER PO SCH (09:47)
[2019-01-19 10:07] LABS: Anion Gap 6 mmol/L; Blood Urea Nitrogen 22 mg/dL (9-20); Calcium 8.7 mg/dL (8.4-10.2); Carbon Dioxide 34 mmol/L (22-30); Chloride 87 mmol/L (98-107); Glucose 203 mg/dL (74-99); Sodium 127 mmol/L (137-145)
[2019-01-19 10:09] LABS: Cholesterol 135 mg/dL (<200); HDL Cholesterol 64 mg/dL (40-60); LDL Cholesterol,Calculated 59 mg/dL (0-99); Triglycerides 61 mg/dL (<150)
[2019-01-19 11:40] LABS: Glucose,Whole Blood 247 mg/dL (75-99)
--- NOTE | 2019-01-19 13:11 | P.PN ---
Subjective This is a pleasant 70-year-old male past medical history significant for coronary artery disease status post bypass grafting and subsequent stent placement to his grafts, COPD, hypertension, dyslipidemia and peripheral vascular disease. He states he is scheduled to have a stent placed in his left carotid artery next month. He follows with Dr. Amado for cardiology and Sonny. We have been asked to see him in consultation for tachycardia noted on telemetry. He presented to the hospital for symptoms of cough and shortness of breath. He has been diagnosed with an acute exacerbation of chronic COPD and has been started on antibiotics, steroids and breathing treatments. He is seen and examined resting comfortably in bed in no acute distress. He continues to complain of shortness of breath but states overall he seems to be improving mildly. He denies symptoms of chest discomfort, nausea, vomiting or diaphoresis. He did feel his heart racing and 2 separate occasions yesterday. He states this does happen to him intermittently at home if he doesn't take his Toprol on time. He denies ever being diagnosed with any sort of an arrhythmia in the past. He is not on long-term anticoagulation. 01/19/2019 Patient was seen and examined sitting up in bed. He is somewhat dyspneic at the time of my exam and states his breathing seems worse today than it was yesterday. He denies chest discomfort, palpitations or dizziness. Chest x-ray reveals chronic episodic changes pulmonary fibrosis, worsening left basilar infiltrate with chronic changes. Laboratory data reviewed, sodium 127, potassium 4.0, creatinine 0.82, TSH 0.138, free T4 1.87, LDL 59 and HDL 64. Telemetry tracings have been reviewed and reveal sinus mechanism with frequent PACs. No episodes of atrial fibrillation with rapid ventricular response. Blood pressure 161/78 heart rate 81 afebrile maintaining oxygen saturation on nasal cannula. He is management as check the cost of Eliquis and there is no co-pay. GENERAL: This is a 78-year-old male mildly tachyneic HEENT: Head is atraumatic, normocephalic. Pupils are equal, round. Sclerae a nicteric. Conjunctivae are clear. Mucous membranes of the mouth are moist. Neck is supple. There is no jugular venous distention. Left carotid bruit is heard. LUNGS: Bibasilar rales, scattered rhonchi and faint expiratory wheezing noted. No chest wall tenderness is noted on palpation or with deep breathing. HEART: Regular rate and rhythm without murmurs, rubs or gallops. S1 and S2 heard. Distant heart sounds. EXTREMITIES: No evidence of peripheral edema and no calf tenderness noted. ASSESSMENT New onset paroxysmal atrial fibrillation with rapid ventricular response. Pt has converted to sinus mechanism. Acute exacerbation of COPD Acute on chronic respiratory failure Pulmonary fibrosis Hyponatremia History of coronary artery disease status post bypass grafting and subsequent stent placement in the graft Peripheral vascular disease, patient scheduled to have stent placed in the left carotid artery next month Hypertension Dyslipidemia PLAN Increase verapamil to 180 mg daily. This will help his blood pressures as well. Lengthy discussion had with the patient regarding a-fib and the need for long-term anti-coagulation. He is aware of the risk of stroke and the need for lifelong therapy. Advised him to follow closely with his primary rn neurology regarding this diagnosis. Follow up on discharge with Dr. Amado. Nurse Practitioner note has been reviewed, I agree with a documented findings and plan of care. Patient was seen and examined. Objective - Vital Signs Vital signs: Vital Signs Temp 97.8 F 01/19/19 12:08 Pulse 81 01/19/19 12:08 Resp 18 01/19/19 12:08 BP 161/78 01/19/19 12:08 Pulse Ox 98 01/19/19 12:08 Intake & Output 01/18/19 01/19/19 01/19/19 18:59 06:59 18:59 Intake Total 200 Balance 200 Intake: Oral 200 Other: Voiding Method Urinal # Voids 3 2 - Labs CBC & Chem 7: 01/16/19 15:56 01/19/19 09:08 Labs: Abnormal Lab Results - Last 24 Hours (Table) 01/18/19 01/18/19 01/18/19 Range/Units 11:34 17:09 20:43 Sodium (137-145) mmol/L Chloride (98-107) mmol/L Carbon Dioxide (22-30) mmol/L BUN (9-20) mg/dL Glucose (74-99) mg/dL POC Glucose (mg/dL) 134 H 170 H (75-99) mg/dL HDL Cholesterol (40-60) mg/dL TSH 0.138 L (0.465-4.680) mIU/L 01/19/19 01/19/19 01/19/19 Range/Units 06:42 09:08 09:08 Sodium 127 L (137-145) mmol/L Chloride 87 L (98-107) mmol/L Carbon Dioxide 34 H (22-30) mmol/L BUN 22 H (9-20) mg/dL Glucose 203 H (74-99) mg/dL POC Glucose (mg/dL) 166 H (75-99) mg/dL HDL Cholesterol 64 H (40-60) mg/dL TSH (0.465-4.680) mIU/L 01/19/19 Range/Units 11:39 Sodium (137-145) mmol/L Chloride (98-107) mmol/L Carbon Dioxide (22-30) mmol/L BUN (9-20) mg/dL Glucose (74-99) mg/dL POC Glucose (mg/dL) 247 H (75-99) mg/dL HDL Cholesterol (40-60) mg/dL TSH (0.465-4.680) mIU/L
--- NOTE | 2019-01-19 13:31 | P.PN ---
Subjective This is a pleasant 78 years old male with past medical history of advanced COPD, coronary artery disease status post bypass surgery, hypertension, h yperlipidemia, hyperthyroidism, chronic back pain. Presents with dyspnea, 456 days, associated with cough and yellow-green phlegm but no chest pain. Patient is on home oxygen at 2 L via nasal cannula. Vitals Table, blood pressure. He is saturating 96% on 4 L oxygen. Labs reviewed, CBC is unremarkable. Sodium 127, creatinine 0.7. Troponins are negative. Chest x-ray: Pulmonary fibrosis and probable COPD, atelectasis but no CHF. 01/18/2019 Patient yesterday developed an episode of tachycardia up to 160 bpm, in which she was asymptomatic with a stable blood pressure, his heart rate was controlled with 1 dose of metoprolol 25 mg, looking at the monitor and loose irregular and with no P wave suggestive of atrial fibrillation. His vitals currently show and heart rate of 62 with blood pressure 149/81. Transient 98% on 3 L nasal cannula. Cardiology team has been consulted for his episodic possible atrial fibrillation. Patient still have some dyspnea although is improving, her meta stases on IV Solu-Medrol and doxycycline. Sodium 127, replaced sodium is pending. Sugar is controlled Patient at home use 2 L of oxygen via NC. Also patient complains from chronic back pain which was a bit worse this morning and he got one extra doses of Lillian. 01/22/2019 Patient states that his dyspnea is worsening today although his been on Solu- Medrol. His vitals are stable and he is saturating 98% on 2 L. With Little tachypnea. Labs showing hyponatremia of 127, which is a stable. And when corrected for hyperglycemia it will be 129. No leukocytosis. Repeat chest x- ray showing worsening infiltrate. His been on doxycycline. We'll switch that to Zosyn. Patient also with a new onset A. fib, paroxysmal. Patient has been evaluated by clinical provider trainer who changed his metoprolol to bear panel, check thyroid function tests were within normal limits and start him on Eliquis. CONSTITUTIONAL: No fever, no malaise, no fatigue. HEENT: No recent visual problems or hearing problems. Denied any sore throat. CARDIOVASCULAR: No orthopnea, PND, no palpitations, no syncope. PULMONARY: , no hemoptysis. GASTROINTESTINAL: No diarrhea, no nausea, no vomiting, no abdominal pain. Normoactive bowel sounds. NEUROLOGICAL: No headaches, no weakness, no numbness. HEMATOLOGICAL: Denies any bleeding or petechiae. GENITOURINARY: Denies any burning micturition, frequency, or urgency. MUSCULOSKELETAL/RHEUMATOLOGICAL: Denies any joint pain, swelling, or any muscle pain. ENDOCRINE: Denies any polyuria or polydipsia. Medication: Albuterol, aspirin, Lipitor, Symbicort, doxycycline, Lexapro, Lasix, Solu-Medrol, Lillian, Synthroid, magnesium oxide, verapamil, nitroglycerin, Protonix, Requip, Flomax. Objective - Vital Signs Vital signs: Vital Signs Temp 97.8 F 01/19/19 12:08 Pulse 81 01/19/19 12:08 Resp 18 01/19/19 12:08 BP 161/78 01/19/19 12:08 Pulse Ox 98 01/19/19 12:08 Intake & Output 01/18/19 01/19/19 01/19/19 18:59 06:59 18:59 Intake Total 200 Balance 200 Intake: Oral 200 Other: Voiding Method Urinal # Voids 3 2 - Exam GENERAL: The patient is alert and oriented x3, not in any acute distress. Well developed, well nourished. HEENT: Pupils are round and equally reacting to light. EOMI. No scleral icterus. No conjunctival pallor. Normocephalic, atraumatic. No pharyngeal erythema. No thyromegaly. CARDIOVASCULAR: S1 and S2 present. No murmurs, rubs, or gallops. -PULMONARY: Chest is clear to auscultation, Bilateral expiratory wheezing, Harsh breath sounds ABDOMEN: Soft, nontender, nondistended, normoactive bowel sounds. No palpable organomegaly. MUSCULOSKELETAL: No joint swelling or deformity. -EXTREMITIES: No cyanosis, clubbing, . Bilateral mild to moderate leg edema NEUROLOGICAL: Gross neurological examination did not reveal any focal deficits. SKIN: No rashes. - Labs CBC & Chem 7: 01/16/19 15:56 01/19/19 09:08 Labs: Abnormal Lab Results - Last 24 Hours (Table) 01/18/19 01/18/19 01/18/19 Range/Units 11:34 17:09 20:43 Sodium (137-145) mmol/L Chloride (98-107) mmol/L Carbon Dioxide (22-30) mmol/L BUN (9-20) mg/dL Glucose (74-99) mg/dL POC Glucose (mg/dL) 134 H 170 H (75-99) mg/dL HDL Cholesterol (40-60) mg/dL TSH 0.138 L (0.465-4.680) mIU/L 01/19/19 01/19/19 01/19/19 Range/Units 06:42 09:08 09:08 Sodium 127 L (137-145) mmol/L Chloride 87 L (98-107) mmol/L Carbon Dioxide 34 H (22-30) mmol/L BUN 22 H (9-20) mg/dL Glucose 203 H (74-99) mg/dL POC Glucose (mg/dL) 166 H (75-99) mg/dL HDL Cholesterol 64 H (40-60) mg/dL TSH (0.465-4.680) mIU/L 01/19/19 Range/Units 11:39 Sodium (137-145) mmol/L Chloride (98-107) mmol/L Carbon Dioxide (22-30) mmol/L BUN (9-20) mg/dL Glucose (74-99) mg/dL POC Glucose (mg/dL) 247 H (75-99) mg/dL HDL Cholesterol (40-60) mg/dL TSH (0.465-4.680) mIU/L Assessment and Plan Assessment: Acute COPD exacerbation, history of advanced COPD acute on Chronic hypoxic respiratory failure Paroxysmal atrial fibrillation, currently heart rate is controlled. Patient is started on a Eliquis History of coronary artery disease, status post CABG Left carotid artery stenosis Hypertension Hyperlipidemia Hypothyroidism Chronic back pain Plan: This is a pleasant 78 years old male presents with acute COPD exacerbation, continue with steroids, breathing treatments and oxygen therapy. Bronchodilators. Call pulmonary consult. echocardiogram reviewed. Cardiology consult is appreciated. Continue with verapamil and Eliquis Labs and medication were reviewed.. Continue same treatment. Continue with symptomatic treatment. Resume home medication. Monitor lytes and vitals. DVT and GI prophylaxis. Further recommendations of the clinical course of the patient DVT prophylaxis: Subcutaneous Lovenox GI Prophylaxis: Pepcid PT/OT: Pending Prognosis is guarded
[2019-01-19] MEDS: PIPERACILLIN-TAZOBACTAM 3.375 GM in SODIUM CHLORIDE 0.9% 100 ML IVPB SCH ×2 (15:21→23:34)
[2019-01-19] MEDS: MAGNESIUM OXIDE 400 MG TAB PO SCH (15:21)
[2019-01-19 15:25] LABS: HCT 31.2 % (39.0-53.0); HGB 10.3 gm/dL (13.0-17.5); MCH 29.9 pg (25.0-35.0); MCV 90.6 fL (80.0-100.0); Mean Platelet Volume 6.6; Platelet Count 258 k/uL (150-450); RBC 3.44 m/uL (4.30-5.90); RDW 14.7 % (11.5-15.5); WBC 9.9 k/uL (3.8-10.6)
--- NOTE | 2019-01-19 16:12 | P.PN ---
Subjective Progress Note Date: 01/19/19 Principal diagnosis: Dyspnea, COPD exacerbation This is a 78-year-old male patient with known history of COPD and addition to multiple medical problems most significant of which is coronary artery disease, previous bypass surgery, current artery disease, and other comorbidities such as CHF, hypothyroidism, hyperlipidemia, chronic anxiety/depression. The patient was in the hospital recently for an acute COPD exacerbation. Note that his FEV1 at baseline is around 39% of predicted and the patient is demented on a combination of Spiriva and Symbicort in addition to abuse albuterol on outpatient basis. The patient was came in because of worsening shortness of breath. He was doing some cleaning and mopping the floor and cleaning the carpets where he got exposed to dust and following that he became quite short of breath bronchospastic and wheezy and he end up coming to the hospital for an acute COPD exacerbation. No significant sputum production. No hemoptysis. No pleurisy. No chest pain. No significant leukocytosis. Chest x-ray showing COPD with some limited subsegmental atelectatic changes in lung bases bilaterally without evidence of any failure On 01/18/2019 patient seen in follow-up on medical surgical floor. He sitting up in the chair, in no acute distress, he states his breathing is improving, lung sounds reveal bibasilar crackles, no significant wheezes. Maintenance on supplemental oxygen, currently at 3 L, with a pulse ox of 98%, no fever or chills, patient did have an hour long run of A. fib with RVR with a rate of 168 last night, and had another episode the night before. Patient has been switched to Toprol-XL 25 mg daily, and cardiology has been consulted. No complaints of chest pain, patient is currently back in sinus rhythm with a controlled rate. Only occasional cough, no significant chest congestion. Mild pretibial edema. Influenza screen was negative. His labs have been reviewed, and showed sodium of 126, potassium is 4.3, chloride is 87, CO2 is 36, BUN is 22 and creatinine 0.81. ProBNP is 1630. On 01/19/2019 patient seen in follow-up on medical surgical floor. Today's exam patient is sounding a bit more congested, and there is some scattered expiratory wheezes, no recurrence of A. fib, patient remains in sinus rhythm with a controlled rate, he is on 2 L of oxygen with a pulse ox of 90%, no fever or chills. Chest x-ray was done, and showed chronic emphysematous changes with pleural/parenchymal fibrosis slight worsening of the left basilar Infiltrate or atelectasis on the background of chronic changes. Today's labs have been reviewed, and showed white blood cell count of 9.9, hemoglobin of 10.3, sodium of 127 potassium 4.0, chloride is 87, CO2 is 34, B1 is 22 creatinine 0.82. Patient remains on IV steroids, antibiotic coverage switched from doxycycline to Zosyn by attending physician. Objective - Vital Signs Vital signs: Vital Signs Temp 97.8 F 01/19/19 12:08 Pulse 80 01/19/19 15:37 Resp 18 01/19/19 12:08 BP 161/78 01/19/19 12:08 Pulse Ox 98 01/19/19 12:08 Intake & Output 01/18/19 01/19/19 01/19/19 18:59 06:59 18:59 Intake Total 200 Balance 200 Intake: Oral 200 Other: Voiding Method Urinal # Voids 3 2 - Exam GENERAL EXAM: Alert, pleasant, 78-year-old white male, on 2 L of oxygen, calm and comfortable, sitting in the chair, comfortable in no apparent distress. HEAD: Normocephalic/atraumatic. EYES: Normal reaction of pupils, equal size. Conjunctiva pink, sclera white. NOSE: Clear with pink turbinates. THROAT: No erythema or exudates. NECK: No masses, no JVD, no thyroid enlargement, no adenopathy. CHEST: No chest wall deformity. Symmetrical expansion. LUNGS: Equal air entry with expiratory wheezes, and scattered rhonchi CVS: Regular rate and rhythm, normal S1 and S2, no gallops, no murmurs, no rubs ABDOMEN: Soft, nontender. No hepatosplenomegaly, normal bowel sounds, no guarding or rigidity. EXTREMITIES: No clubbing, mild pretibial edema, no cyanosis, 2+ pulses and upper and lower extremities. MUSCULOSKELETAL: Muscle strength and tone normal. SPINE: No scoliosis or deformity SKIN: No rashes CENTRAL NERVOUS SYSTEM: Alert and oriented -3. No focal deficits, tone is normal in all 4 extremities. PSYCHIATRIC: Alert and oriented -3. Appropriate affect. Intact judgment and insight. - Labs CBC & Chem 7: 01/19/19 14:43 05/01/19 09:08 Labs: Abnormal Lab Results - Last 24 Hours (Table) 01/18/19 01/18/19 01/19/19 Range/Units 17:09 20:43 06:42 RBC (4.30-5.90) m/uL Hgb (13.0-17.5) gm/dL Hct (39.0-53.0) % Sodium (137-145) mmol/L Chloride (98-107) mmol/L Carbon Dioxide (22-30) mmol/L BUN (9-20) mg/dL Glucose (74-99) mg/dL POC Glucose (mg/dL) 134 H 170 H 166 H (75-99) mg/dL HDL Cholesterol (40-60) mg/dL 01/19/19 01/19/19 01/19/19 Range/Units 09:08 09:08 11:39 RBC (4.30-5.90) m/uL Hgb (13.0-17.5) gm/dL Hct (39.0-53.0) % Sodium 127 L (137-145) mmol/L Chloride 87 L (98-107) mmol/L Carbon Dioxide 34 H (22-30) mmol/L BUN 22 H (9-20) mg/dL Glucose 203 H (74-99) mg/dL POC Glucose (mg/dL) 247 H (75-99) mg/dL HDL Cholesterol 64 H (40-60) mg/dL 01/19/19 Range/Units 14:43 RBC 3.44 L (4.30-5.90) m/uL Hgb 10.3 L (13.0-17.5) gm/dL Hct 31.2 L (39.0-53.0) % Sodium (137-145) mmol/L Chloride (98-107) mmol/L Carbon Dioxide (22-30) mmol/L BUN (9-20) mg/dL Glucose (74-99) mg/dL POC Glucose (mg/dL) (75-99) mg/dL HDL Cholesterol (40-60) mg/dL Assessment and Plan Plan: Assessment: 1 acute COPD exacerbation with secondary shortness of breath 2 acute on chronic hypoxic respiratory failure 3 severe COPD with an FEV1 of 39% baseline 4 coronary artery disease presents bypass surgery 5 left carotid artery stenosis 6 hypertension 7 hyperlipidemia 8 hypothyroidism 9 chronic back pain 10 2 separate episodes of A. fib RVR, self-limiting, patient had converted back to sinus rhythm Plan: Continue current abiotic coverage, patient's follow-up chest x-ray has been reviewed by Dr. Morris, and shows slight worsening in the left basilar acute infiltrate or atelectasis on the background of chronic emphysematous changes, no leukocytosis, no fever or chills, continue the IV steroids I performed a history & physical examination of the patient and discussed their management with my nurse practitioner, Evonne Peters. I reviewed the nurse practitioner's note and agree with the documented findings and plan of care. Lung sounds are positive for bibasilar crackles. The findings and the impression was discussed with the patient. I attest to the documentation by the nurse practitioner. Time with Patient: Less than 30
[2019-01-19 16:46] LABS: Glucose,Whole Blood 168 mg/dL (75-99)
[2019-01-19 20:09] LABS: Glucose,Whole Blood 211 mg/dL (75-99)
[2019-01-19] MEDS: ATORVASTATIN 40 MG TAB PO SCH (21:27)
[2019-01-20] MEDS: LEVOTHYROXINE 50 MCG TAB PO SCH (05:36)
[2019-01-20] MEDS: methylPREDNISolone SOD SUCCI 125 MG/2 ML VIAL IV SCH ×3 (05:37→17:29)
[2019-01-20 07:10] LABS: Glucose,Whole Blood 166 mg/dL (75-99)
[2019-01-20] MEDS: IPRATROPIUM-ALBUTEROL 3 ML NEB INHALATION SCH ×4 (07:45→19:10)
[2019-01-20] MEDS: SYMBICORT 160-4.5 MCG INHALER INHALATION SCH ×2 (07:45→19:10)
[2019-01-20 07:49] LABS: HCT 33.3 % (39.0-53.0); HGB 10.7 gm/dL (13.0-17.5); MCH 29.6 pg (25.0-35.0); MCHC 32.2 g/dL (31.0-37.0); MCV 91.9 fL (80.0-100.0); Mean Platelet Volume 6.3; Platelet Count 271 k/uL (150-450); RBC 3.63 m/uL (4.30-5.90); RDW 14.7 % (11.5-15.5); WBC 12.2 k/uL (3.8-10.6)
[2019-01-20 08:04] LABS: Anion Gap 3 mmol/L; Blood Urea Nitrogen 21 mg/dL (9-20); Calcium 8.4 mg/dL (8.4-10.2); Carbon Dioxide 37 mmol/L (22-30); Chloride 88 mmol/L (98-107); Glucose 141 mg/dL (74-99); Potassium 4.1 mmol/L (3.5-5.1); Sodium 128 mmol/L (137-145)
[2019-01-20] MEDS: ASPIRIN 81 MG PO SCH (08:42)
[2019-01-20] MEDS: APIXABAN 5 MG TAB PO SCH ×2 (08:42→20:43)
[2019-01-20] MEDS: PANTOPRAZOLE 40 MG TABLET PO SCH (08:42)
[2019-01-20] MEDS: TAMSULOSIN 0.4 MG CAP.ER.24H PO SCH (08:42)
[2019-01-20] MEDS: INSULIN ASPART (NovoLOG) 100 UNIT/ML VIAL SQ SCH ×4 (08:42→20:43)
[2019-01-20] MEDS: VERAPAMIL SR 180 MG TABLET.ER PO SCH (08:42)
[2019-01-20] MEDS: ESCITALOPRAM 10 MG TAB PO SCH (08:43)
[2019-01-20] MEDS: FUROSEMIDE 20 MG TAB PO SCH (08:43)
[2019-01-20] MEDS: PIPERACILLIN-TAZOBACTAM 3.375 GM in SODIUM CHLORIDE 0.9% 100 ML IVPB SCH ×2 (10:09→17:29)
[2019-01-20 12:08] LABS: Glucose,Whole Blood 150 mg/dL (75-99)
--- NOTE | 2019-01-20 13:21 | P.PN ---
Subjective This is a pleasant 78 years old male with past medical history of advanced COPD, coronary artery disease status post bypass surgery, hypertension, h yperlipidemia, hyperthyroidism, chronic back pain. Presents with dyspnea, 456 days, associated with cough and yellow-green phlegm but no chest pain. Patient is on home oxygen at 2 L via nasal cannula. Vitals Table, blood pressure. He is saturating 96% on 4 L oxygen. Labs reviewed, CBC is unremarkable. Sodium 127, creatinine 0.7. Troponins are negative. Chest x-ray: Pulmonary fibrosis and probable COPD, atelectasis but no CHF. 01/18/2019 Patient yesterday developed an episode of tachycardia up to 160 bpm, in which she was asymptomatic with a stable blood pressure, his heart rate was controlled with 1 dose of metoprolol 25 mg, looking at the monitor and loose irregular and with no P wave suggestive of atrial fibrillation. His vitals currently show and heart rate of 62 with blood pressure 149/81. Transient 98% on 3 L nasal cannula. Cardiology team has been consulted for his episodic possible atrial fibrillation. Patient still have some dyspnea although is improving, her meta stases on IV Solu-Medrol and doxycycline. Sodium 127, replaced sodium is pending. Sugar is controlled Patient at home use 2 L of oxygen via [place]. Also patient complains from chronic back pain which was a bit worse this morning and he got one extra doses of [place]. 01/19/2019 Patient states that his dyspnea is worsening today although his been on Solu- Medrol. His vitals are stable and he is saturating 98% on 2 L. With Little tachypnea. Labs showing hyponatremia of 127, which is a stable. And when corrected for hyperglycemia it will be 129. No leukocytosis. Repeat chest x- ray showing worsening infiltrate. His been on doxycycline. We'll switch that to Zosyn. Patient also with a new onset A. fib, paroxysmal. Patient has been evaluated by stenographer secretary who changed his metoprolol to bear panel, check thyroid function tests were within normal limits and start him on Eliquis. 01/20/2019 Patient is still being treated for his COPD exacerbation, history of some dyspnea; has some secretions that are thick and his airways. Patient was a started on incentive spirometry this morning and he was encouraged to use it. He saturating 97% on 2 L via nasal cannula water-drinking. His leukocytosis is mild mostly due to the steroid effect. He remains on antibiotic. Patient also was started on Eliquis for his new onset A. fib. His heart rate is controlled currently Objective - Vital Signs Vital signs: Vital Signs Temp 97.3 F L 01/20/19 05:00 Pulse 84 01/20/19 12:40 Resp 20 01/20/19 05:00 BP 160/68 01/20/19 05:00 Pulse Ox 97 01/20/19 05:00 Intake & Output 01/19/19 01/20/19 01/20/19 18:59 06:59 18:59 Intake Total 1060 1230 240 Balance 1060 1230 240 Intake: Intake, IV Titration 100 100 Amount Piperacillin-Tazobactam 3 100 100 .375 gm In Sodium Chloride 0.9% 100 ml @ 25 mls/hr IVPB Q8HR [facility] Rx# :[id number] Oral 960 1130 240 Other: Voiding Method Urinal Toilet # Voids 3 3 - Exam GENERAL: The patient is alert and oriented x3, not in any acute distress. Well developed, well nourished. HEENT: Pupils are round and equally reacting to light. EOMI. No scleral icterus. No conjunctival pallor. Normocephalic, atraumatic. No pharyngeal erythema. No thyromegaly. CARDIOVASCULAR: S1 and S2 present. No murmurs, rubs, or gallops. -PULMONARY: Chest is clear to auscultation, Bilateral expiratory wheezing, Harsh breath sounds ABDOMEN: Soft, nontender, nondistended, normoactive bowel sounds. No palpable organomegaly. MUSCULOSKELETAL: No joint swelling or deformity. -EXTREMITIES: No cyanosis, clubbing, . Bilateral mild to moderate leg edema NEUROLOGICAL: Gross neurological examination did not reveal any focal deficits. SKIN: No rashes. - Labs CBC & Chem 7: 01/20/19 07:24 01/20/19 07:24 Labs: Abnormal Lab Results - Last 24 Hours (Table) 01/19/19 01/19/19 01/19/19 Range/Units 14:43 16:45 20:08 WBC (3.8-10.6) k/uL RBC 3.44 L (4.30-5.90) m/uL Hgb 10.3 L (13.0-17.5) gm/dL Hct 31.2 L (39.0-53.0) % Sodium (137-145) mmol/L Chloride (98-107) mmol/L Carbon Dioxide (22-30) mmol/L BUN (9-20) mg/dL Glucose (74-99) mg/dL POC Glucose (mg/dL) 168 H 211 H (75-99) mg/dL 01/20/19 01/20/19 01/20/19 Range/Units 07:09 07:24 07:24 WBC 12.2 H (3.8-10.6) k/uL RBC 3.63 L (4.30-5.90) m/uL Hgb 10.7 L (13.0-17.5) gm/dL Hct 33.3 L (39.0-53.0) % Sodium 128 L (137-145) mmol/L Chloride 88 L (98-107) mmol/L Carbon Dioxide 37 H (22-30) mmol/L BUN 21 H (9-20) mg/dL Glucose 141 H (74-99) mg/dL POC Glucose (mg/dL) 166 H (75-99) mg/dL 01/20/19 Range/Units 12:06 WBC (3.8-10.6) k/uL RBC (4.30-5.90) m/uL Hgb (13.0-17.5) gm/dL Hct (39.0-53.0) % Sodium (137-145) mmol/L Chloride (98-107) mmol/L Carbon Dioxide (22-30) mmol/L BUN (9-20) mg/dL Glucose (74-99) mg/dL POC Glucose (mg/dL) 150 H (75-99) mg/dL Assessment and Plan Assessment: Acute COPD exacerbation, history of advanced COPD acute on Chronic hypoxic respiratory failure Paroxysmal atrial fibrillation, currently heart rate is controlled. Patient is started on a Eliquis History of coronary artery disease, status post CABG Left carotid artery stenosis Hypertension Hyperlipidemia Hypothyroidism Chronic back pain Plan: This is a pleasant 78 years old male presents with acute COPD exacerbation, continue with steroids, breathing treatments and oxygen therapy. Bronch odilators. Call pulmonary consult. echocardiogram reviewed. Cardiology consult is appreciated. Continue with verapamil and Eliquis Labs and medication were reviewed.. Continue same treatment. Continue with symptomatic treatment. Resume home medication. Monitor lytes and vitals. DVT and GI prophylaxis. Further recommendations of the clinical course of the patient DVT prophylaxis: Subcutaneous Lovenox GI Prophylaxis: Pepcid PT/OT: Pending Prognosis is guarded
[2019-01-20 17:12] LABS: Glucose,Whole Blood 199 mg/dL (75-99)
[2019-01-20] MEDS: MAGNESIUM OXIDE 400 MG TAB PO SCH (17:29)
--- NOTE | 2019-01-20 18:35 | P.PN ---
Subjective Progress Note Date: 01/20/19 Principal diagnosis: Dyspnea, COPD exacerbation This is a 78-year-old male patient with known history of COPD and addition to multiple medical problems most significant of which is coronary artery disease, previous bypass surgery, current artery disease, and other comorbidities such as CHF, hypothyroidism, hyperlipidemia, chronic anxiety/depression. The patient was in the hospital recently for an acute COPD exacerbation. Note that his FEV1 at baseline is around 39% of predicted and the patient is demented on a combination of Spiriva and Symbicort in addition to abuse albuterol on outpatient basis. The patient was came in because of worsening shortness of breath. He was doing some cleaning and mopping the floor and cleaning the carpets where he got exposed to dust and following that he became quite short of breath bronchospastic and wheezy and he end up coming to the hospital for an acute COPD exacerbation. No significant sputum production. No hemoptysis. No pleurisy. No chest pain. No significant leukocytosis. Chest x-ray showing COPD with some limited subsegmental atelectatic changes in lung bases bilaterally without evidence of any failure On 01/18/2019 patient seen in follow-up on medical surgical floor. He sitting up in the chair, in no acute distress, he states his breathing is improving, lung sounds reveal bibasilar crackles, no significant wheezes. Maintenance on supplemental oxygen, currently at 3 L, with a pulse ox of 98%, no fever or chills, patient did have an hour long run of A. fib with RVR with a rate of 168 last night, and had another episode the night before. Patient has been switched to Toprol-XL 25 mg daily, and cardiology has been consulted. No complaints of chest pain, patient is currently back in sinus rhythm with a controlled rate. Only occasional cough, no significant chest congestion. Mild pretibial edema. Influenza screen was negative. His labs have been reviewed, and showed sodium of 126, potassium is 4.3, chloride is 87, CO2 is 36, BUN is 22 and creatinine 0.81. ProBNP is 1630. On 01/19/2019 patient seen in follow-up on medical surgical floor. Today's exam patient is sounding a bit more congested, and there is some scattered expiratory wheezes, no recurrence of A. fib, patient remains in sinus rhythm with a controlled rate, he is on 2 L of oxygen with a pulse ox of 90%, no fever or chills. Chest x-ray was done, and showed chronic emphysematous changes with pleural/parenchymal fibrosis slight worsening of the left basilar Infiltrate or atelectasis on the background of chronic changes. Today's labs have been reviewed, and showed white blood cell count of 9.9, hemoglobin of 10.3, sodium of 127 potassium 4.0, chloride is 87, CO2 is 34, B1 is 22 creatinine 0.82. Patient remains on IV steroids, antibiotic coverage switched from doxycycline to Zosyn by attending physician. On 01/20/2019 patient is seen in follow-up on medical surgical floor. He states he is feeling better today, less congested, still remains bronchospastic, but clinically he feels better, he is able to ambulate, means on 2 L of oxygen with a pulse ox of 95%, afebrile. Today's labs have been reviewed, and showed the white blood cell count of 12.2, hemoglobin 10.7, serum sodium is improving, and is up to 128, potassium is 4.1, chloride is 88, CO2 is 37, B1 is 21 creatinine 0.83. Patient is on IV Zosyn, IV steroids and nebulized bronchodilators. Objective - Vital Signs Vital signs: Vital Signs Temp 97.4 F L 01/20/19 13:24 Pulse 80 01/20/19 16:00 Resp 18 01/20/19 13:24 BP 131/65 01/20/19 13:24 Pulse Ox 95 01/20/19 13:24 Intake & Output 01/19/19 01/20/19 01/20/19 18:59 06:59 18:59 Intake Total 1060 1230 340 Balance 1060 1230 340 Intake: Intake, IV Titration 100 100 100 Amount Piperacillin-Tazobactam 3 100 100 100 .375 gm In Sodium Chloride 0.9% 100 ml @ 25 mls/hr IVPB Q8HR [facility] Rx# :[id number] Oral 960 1130 240 Other: Voiding Method Urinal Toilet # Voids 3 3 3 - Exam GENERAL EXAM: Alert, pleasant, 78-year-old white male, on 2 L of oxygen, calm and comfortable, sitting in the chair, comfortable in no apparent distress. HEAD: Normocephalic/atraumatic. EYES: Normal reaction of pupils, equal size. Conjunctiva pink, sclera white. NOSE: Clear with pink turbinates. THROAT: No erythema or exudates. NECK: No masses, no JVD, no thyroid enlargement, no adenopathy. CHEST: No chest wall deformity. Symmetrical expansion. LUNGS: Equal air entry with expiratory wheezes, and scattered rhonchi CVS: Regular rate and rhythm, normal S1 and S2, no gallops, no murmurs, no rubs ABDOMEN: Soft, nontender. No hepatosplenomegaly, normal bowel sounds, no guarding or rigidity. EXTREMITIES: No clubbing, mild pretibial edema, no cyanosis, 2+ pulses and upper and lower extremities. MUSCULOSKELETAL: Muscle strength and tone normal. SPINE: No scoliosis or deformity SKIN: No rashes CENTRAL NERVOUS SYSTEM: Alert and oriented -3. No focal deficits, tone is normal in all 4 extremities. PSYCHIATRIC: Alert and oriented -3. Appropriate affect. Intact judgment and insight. - Labs CBC & Chem 7: 01/20/19 07:24 01/20/19 07:24 Labs: Abnormal Lab Results - Last 24 Hours (Table) 01/19/19 01/20/19 01/20/19 Range/Units 20:08 07:09 07:24 WBC (3.8-10.6) k/uL RBC (4.30-5.90) m/uL Hgb (13.0-17.5) gm/dL Hct (39.0-53.0) % Sodium 128 L (137-145) mmol/L Chloride 88 L (98-107) mmol/L Carbon Dioxide 37 H (22-30) mmol/L BUN 21 H (9-20) mg/dL Glucose 141 H (74-99) mg/dL POC Glucose (mg/dL) 211 H 166 H (75-99) mg/dL 01/20/19 01/20/19 01/20/19 Range/Units 07:24 12:06 17:11 WBC 12.2 H (3.8-10.6) k/uL RBC 3.63 L (4.30-5.90) m/uL Hgb 10.7 L (13.0-17.5) gm/dL Hct 33.3 L (39.0-53.0) % Sodium (137-145) mmol/L Chloride (98-107) mmol/L Carbon Dioxide (22-30) mmol/L BUN (9-20) mg/dL Glucose (74-99) mg/dL POC Glucose (mg/dL) 150 H 199 H (75-99) mg/dL Assessment and Plan Plan: Assessment: 1 acute COPD exacerbation with secondary shortness of breath 2 acute on chronic hypoxic respiratory failure 3 severe COPD with an FEV1 of 39% baseline 4 coronary artery disease presents bypass surgery 5 left carotid artery stenosis 6 hypertension 7 hyperlipidemia 8 hypothyroidism 9 chronic back pain 10 2 separate episodes of A. fib RVR, self-limiting, patient had converted back to sinus rhythm Plan: Continue current antibiotics, current dose of IV steroids, nebulized bronchodilators. Her fever or chills, signs are stable, increase activity, patient is less congested, he is able to bring up some sputum, will continue with current medical treatment. Continue to follow. I performed a history & physical examination of the patient and discussed their management with my nurse practitioner, Evonne Peters. I reviewed the nurse practitioner's note and agree with the documented findings and plan of care. Lung sounds are positive for bibasilar crackles. The findings and the impression was discussed with the patient. I attest to the documentation by the nurse practitioner. Time with Patient: Less than 30
[2019-01-20 19:58] LABS: Glucose,Whole Blood 246 mg/dL (75-99)
[2019-01-20] MEDS: ATORVASTATIN 40 MG TAB PO SCH (20:42)
[2019-01-20] MEDS: guaiFENesin 600 MG TABLET.ER PO SCH (20:42)
[2019-01-20] MEDS: HYDROcodone/APAP 10-325MG 1 EACH TAB PO PRN (21:23)
[2019-01-21] MEDS: methylPREDNISolone SOD SUCCI 125 MG/2 ML VIAL IV SCH ×5 (00:10→23:23)
[2019-01-21] MEDS: PIPERACILLIN-TAZOBACTAM 3.375 GM in SODIUM CHLORIDE 0.9% 100 ML IVPB SCH ×3 (00:10→17:13)
[2019-01-21] MEDS: LEVOTHYROXINE 50 MCG TAB PO SCH (05:58)
[2019-01-21 06:56] LABS: Glucose,Whole Blood 145 mg/dL (75-99)
[2019-01-21] MEDS: IPRATROPIUM-ALBUTEROL 3 ML NEB INHALATION SCH ×4 (08:31→19:13)
[2019-01-21] MEDS: SYMBICORT 160-4.5 MCG INHALER INHALATION SCH ×2 (08:31→19:12)
[2019-01-21 08:39] LABS: Calcium 8.4 mg/dL (8.4-10.2); Potassium 4.7 mmol/L (3.5-5.1)
[2019-01-21] MEDS: ASPIRIN 81 MG PO SCH (08:43)
[2019-01-21] MEDS: PANTOPRAZOLE 40 MG TABLET PO SCH (08:43)
[2019-01-21] MEDS: TAMSULOSIN 0.4 MG CAP.ER.24H PO SCH (08:43)
[2019-01-21] MEDS: APIXABAN 5 MG TAB PO SCH ×2 (08:43→22:28)
[2019-01-21] MEDS: FUROSEMIDE 20 MG TAB PO SCH (08:43)
[2019-01-21] MEDS: guaiFENesin 600 MG TABLET.ER PO SCH ×2 (08:43→22:28)
[2019-01-21] MEDS: VERAPAMIL SR 180 MG TABLET.ER PO SCH (08:44)
[2019-01-21] MEDS: INSULIN ASPART (NovoLOG) 100 UNIT/ML VIAL SQ SCH ×4 (08:44→22:28)
[2019-01-21] MEDS: ESCITALOPRAM 10 MG TAB PO SCH (08:46)
--- NOTE | 2019-01-21 11:04 | P.PN ---
Subjective This is a pleasant 78 years old male with past medical history of advanced COPD, coronary artery disease status post bypass surgery, hypertension, h yperlipidemia, hyperthyroidism, chronic back pain. Presents with dyspnea, 456 days, associated with cough and yellow-green phlegm but no chest pain. Patient is on home oxygen at 2 L via nasal cannula. Vitals Table, blood pressure. He is saturating 96% on 4 L oxygen. Labs reviewed, CBC is unremarkable. Sodium 127, creatinine 0.7. Troponins are negative. Chest x-ray: Pulmonary fibrosis and probable COPD, atelectasis but no CHF. 01/18/2019 Patient yesterday developed an episode of tachycardia up to 160 bpm, in which she was asymptomatic with a stable blood pressure, his heart rate was controlled with 1 dose of metoprolol 25 mg, looking at the monitor and loose irregular and with no P wave suggestive of atrial fibrillation. His vitals currently show and heart rate of 62 with blood pressure 149/81. Transient 98% on 3 L nasal cannula. Cardiology team has been consulted for his episodic possible atrial fibrillation. Patient still have some dyspnea although is improving, her meta stases on IV Solu-Medrol and doxycycline. Sodium 127, replaced sodium is pending. Sugar is controlled Patient at home use 2 L of oxygen via NC. Also patient complains from chronic back pain which was a bit worse this morning and he got one extra doses of [place]. 01/19/2019 Patient states that his dyspnea is worsening today although his been on Solu- Medrol. His vitals are stable and he is saturating 98% on 2 L. With Little tachypnea. Labs showing hyponatremia of 127, which is a stable. And when corrected for hyperglycemia it will be 129. No leukocytosis. Repeat chest x- ray showing worsening infiltrate. His been on doxycycline. We'll switch that to Zosyn. Patient also with a new onset A. fib, paroxysmal. Patient has been evaluated by new car sales manager who changed his metoprolol to bear panel, check thyroid function tests were within normal limits and start him on Eliquis. 01/20/2019 Patient is still being treated for his COPD exacerbation, history of some dyspnea; has some secretions that are thick and his airways. Patient was a started on incentive spirometry this morning and he was encouraged to use it. He saturating 97% on 2 L via nasal cannula water-drinking. His leukocytosis is mild mostly due to the steroid effect. He remains on antibiotic. Patient also was started on Eliquis for his new onset A. fib. His heart rate is controlled currently 01/21/2019 Patient dyspnea is improving however he still have significant wheezing and he does not think he is ready for discharge today. He can walk short distances with some dyspnea. And remains on IV Solu-Medrol and antibiotics. His vitals are stable, including heart rate is controlled for his history of recent atrial flutter. He is currently on verapamil, And Eliquis. Patient has been followed by pulmonary team and he followed by new car sales manager. Sodium still 128, place patient on fluid restriction 1500 per day. He is using his incentive spirometry. Objective - Vital Signs Vital signs: Vital Signs Temp 97.7 F 01/21/19 05:00 Pulse 87 01/21/19 08:43 Resp 20 01/21/19 08:00 BP 140/72 01/21/19 05:00 Pulse Ox 96 01/21/19 08:31 Intake & Output 01/20/19 01/21/19 01/21/19 18:59 06:59 18:59 Intake Total 340 1180 Balance 340 1180 Intake: Intake, IV Titration 100 Amount Piperacillin-Tazobactam 3 100 .375 gm In Sodium Chloride 0.9% 100 ml @ 25 mls/hr IVPB Q8HR [facility] Rx# :[id number] Oral 240 1180 Other: Voiding Method Toilet Toilet # Voids 3 2 - Exam GENERAL: The patient is alert and oriented x3, not in any acute distress. Well developed, well nourished. HEENT: Pupils are round and equally reacting to light. EOMI. No scleral icterus. No conjunctival pallor. Normocephalic, atraumatic. No pharyngeal erythema. No thyromegaly. CARDIOVASCULAR: S1 and S2 present. No murmurs, rubs, or gallops. -PULMONARY: Chest is clear to auscultation, Bilateral expiratory wheezing, Harsh breath sounds ABDOMEN: Soft, nontender, nondistended, normoactive bowel sounds. No palpable organomegaly. MUSCULOSKELETAL: No joint swelling or deformity. -EXTREMITIES: No cyanosis, clubbing, . Bilateral mild to moderate leg edema NEUROLOGICAL: Gross neurological examination did not reveal any focal deficits. SKIN: No rashes. - Labs CBC & Chem 7: 01/20/19 07:24 01/21/19 06:58 Labs: Abnormal Lab Results - Last 24 Hours (Table) 01/20/19 01/20/19 01/20/19 Range/Units 12:06 17:11 19:56 Sodium (137-145) mmol/L Chloride (98-107) mmol/L Carbon Dioxide (22-30) mmol/L BUN (9-20) mg/dL Glucose (74-99) mg/dL POC Glucose (mg/dL) 150 H 199 H 246 H (75-99) mg/dL 01/21/19 01/21/19 Range/Units 06:52 06:58 Sodium 128 L (137-145) mmol/L Chloride 87 L (98-107) mmol/L Carbon Dioxide 38 H (22-30) mmol/L BUN 26 H (9-20) mg/dL Glucose 130 H (74-99) mg/dL POC Glucose (mg/dL) 145 H (75-99) mg/dL Assessment and Plan Assessment: Acute COPD exacerbation, history of advanced COPD acute on Chronic hypoxic respiratory failure Paroxysmal atrial fibrillation, currently heart rate is controlled. Patient is started on a Eliquis History of coronary artery disease, status post CABG Left carotid artery stenosis Hypertension Hyperlipidemia Hypothyroidism Chronic back pain Plan: This is a pleasant 78 years old male presents with acute COPD exacerbation, continue with steroids, breathing treatments and oxygen therapy. Bronchodilators. Call pulmonary consult. echocardiogram reviewed. Cardiology consult is appreciated. Continue with verapamil and Eliquis Labs and medication were reviewed.. Continue same treatment. Continue with symptomatic treatment. Resume home medication. Monitor lytes and vitals. DVT and GI prophylaxis. Further recommendations of the clinical course of the patient DVT prophylaxis: Subcutaneous Lovenox GI Prophylaxis: Pepcid PT/OT: Pending Prognosis is guarded
[2019-01-21 11:31] LABS: Basophils % (A) 0 %; Eosinophils % (A) 0 %; HCT 31.7 % (39.0-53.0); HGB 10.2 gm/dL (13.0-17.5); Lymphocytes # (A) 0.4 k/uL (1.0-4.8); Lymphocytes % (A) 4 %; MCH 29.5 pg (25.0-35.0); MCHC 32.2 g/dL (31.0-37.0); MCV 91.7 fL (80.0-100.0); Mean Platelet Volume 7.3; Monocytes # (A) 0.4 k/uL (0-1.0); Monocytes % (A) 4 %; Neutrophils # (A) 9.1 k/uL (1.3-7.7); Neutrophils % (A) 92 %; Platelet Count 273 k/uL (150-450); RBC 3.46 m/uL (4.30-5.90); RDW 14.9 % (11.5-15.5); WBC 9.9 k/uL (3.8-10.6)
[2019-01-21 11:34] LABS: Glucose,Whole Blood 245 mg/dL (75-99)
--- NOTE | 2019-01-21 15:04 | P.PN ---
Subjective Progress Note Date: 01/21/19 Principal diagnosis: Dyspnea, COPD exacerbation This is a 78-year-old male patient with known history of COPD and addition to multiple medical problems most significant of which is coronary artery disease, previous bypass surgery, current artery disease, and other comorbidities such as CHF, hypothyroidism, hyperlipidemia, chronic anxiety/depression. The patient was in the hospital recently for an acute COPD exacerbation. Note that his FEV1 at baseline is around 39% of predicted and the patient is demented on a combination of Spiriva and Symbicort in addition to abuse albuterol on outpatient basis. The patient was came in because of worsening shortness of breath. He was doing some cleaning and mopping the floor and cleaning the carpets where he got exposed to dust and following that he became quite short of breath bronchospastic and wheezy and he end up coming to the hospital for an acute COPD exacerbation. No significant sputum production. No hemoptysis. No pleurisy. No chest pain. No significant leukocytosis. Chest x-ray showing COPD with some limited subsegmental atelectatic changes in lung bases bilaterally without evidence of any failure On 01/18/2019 patient seen in follow-up on medical surgical floor. He sitting up in the chair, in no acute distress, he states his breathing is improving, lung sounds reveal bibasilar crackles, no significant wheezes. Maintenance on supplemental oxygen, currently at 3 L, with a pulse ox of 98%, no fever or chills, patient did have an hour long run of A. fib with RVR with a rate of 168 last night, and had another episode the night before. Patient has been switched to Toprol-XL 25 mg daily, and cardiology has been consulted. No complaints of chest pain, patient is currently back in sinus rhythm with a controlled rate. Only occasional cough, no significant chest congestion. Mild pretibial edema. Influenza screen was negative. His labs have been reviewed, and showed sodium of 126, potassium is 4.3, chloride is 87, CO2 is 36, BUN is 22 and creatinine 0.81. ProBNP is 1630. On 01/19/2019 patient seen in follow-up on medical surgical floor. Today's exam patient is sounding a bit more congested, and there is some scattered expiratory wheezes, no recurrence of A. fib, patient remains in sinus rhythm with a controlled rate, he is on 2 L of oxygen with a pulse ox of 90%, no fever or chills. Chest x-ray was done, and showed chronic emphysematous changes with pleural/parenchymal fibrosis slight worsening of the left basilar Infiltrate or atelectasis on the background of chronic changes. Today's labs have been reviewed, and showed white blood cell count of 9.9, hemoglobin of 10.3, sodium of 127 potassium 4.0, chloride is 87, CO2 is 34, B1 is 22 creatinine 0.82. Patient remains on IV steroids, antibiotic coverage switched from doxycycline to Zosyn by attending physician. On 01/20/2019 patient is seen in follow-up on medical surgical floor. He states he is feeling better today, less congested, still remains bronchospastic, but clinically he feels better, he is able to ambulate, means on 2 L of oxygen with a pulse ox of 95%, afebrile. Today's labs have been reviewed, and showed the white blood cell count of 12.2, hemoglobin 10.7, serum sodium is improving, and is up to 128, potassium is 4.1, chloride is 88, CO2 is 37, B1 is 21 creatinine 0.83. Patient is on IV Zosyn, IV steroids and nebulized bronchodilators. On 01/21/2019 patient seen in follow-up on medical surgical floor. He is awake and alert, in no acute distress, he states he is improving, no worsening dyspne a, cough or congestion, lung sounds are positive for some residual wheezing, but overall is bronchospastic and dyspneic, he is ambulating in the room, he is on his 2 L of oxygen with a pulse ox of 98%, this is his home dose of oxygen. He is afebrile, vital signs are stable, today's lab work has been reviewed, showed white blood cell count is trending down, 9.9, hemoglobin of 10.2, serum sodium is 128, potassium is 4.7, chloride is 87, CO2 38, BUN is 26 creatinine is 0.97. Objective - Vital Signs Vital signs: Vital Signs Temp 97.9 F 01/21/19 11:39 Pulse 83 01/21/19 11:39 Resp 16 01/21/19 11:39 BP 131/68 01/21/19 11:39 Pulse Ox 98 01/21/19 11:39 Intake & Output 01/20/19 01/21/19 01/21/19 18:59 06:59 18:59 Intake Total 340 1180 Balance 340 1180 Intake: Intake, IV Titration 100 Amount Piperacillin-Tazobactam 3 100 .375 gm In Sodium Chloride 0.9% 100 ml @ 25 mls/hr IVPB Q8HR [facility] Rx# :[id number] Oral 240 1180 Other: Voiding Method Toilet Toilet # Voids 3 2 - Exam GENERAL EXAM: Alert, pleasant, 78-year-old white male, on 2 L of oxygen, calm and comfortable, sitting in the chair, comfortable in no apparent distress. HEAD: Normocephalic/atraumatic. EYES: Normal reaction of pupils, equal size. Conjunctiva pink, sclera white. NOSE: Clear with pink turbinates. THROAT: No erythema or exudates. NECK: No masses, no JVD, no thyroid enlargement, no adenopathy. CHEST: No chest wall deformity. Symmetrical expansion. LUNGS: Equal air entry with expiratory wheezes, less congestion on today's exam CVS: Regular rate and rhythm, normal S1 and S2, no gallops, no murmurs, no rubs ABDOMEN: Soft, nontender. No hepatosplenomegaly, normal bowel sounds, no guarding or rigidity. EXTREMITIES: No clubbing, mild pretibial edema, no cyanosis, 2+ pulses and upper and lower extremities. MUSCULOSKELETAL: Muscle strength and tone normal. SPINE: No scoliosis or deformity SKIN: No rashes CENTRAL NERVOUS SYSTEM: Alert and oriented -3. No focal deficits, tone is normal in all 4 extremities. PSYCHIATRIC: Alert and oriented -3. Appropriate affect. Intact judgment and insight. - Labs CBC & Chem 7: 01/21/19 06:58 01/21/19 06:58 Labs: Abnormal Lab Results - Last 24 Hours (Table) 01/20/19 01/20/19 01/21/19 Range/Units 17:11 19:56 06:52 RBC (4.30-5.90) m/uL Hgb (13.0-17.5) gm/dL Hct (39.0-53.0) % Neutrophils # (1.3-7.7) k/uL Lymphocytes # (1.0-4.8) k/uL Sodium (137-145) mmol/L Chloride (98-107) mmol/L Carbon Dioxide (22-30) mmol/L BUN (9-20) mg/dL Glucose (74-99) mg/dL POC Glucose (mg/dL) 199 H 246 H 145 H (75-99) mg/dL 01/21/19 01/21/19 01/21/19 Range/Units 06:58 06:58 11:33 RBC 3.46 L (4.30-5.90) m/uL Hgb 10.2 L (13.0-17.5) gm/dL Hct 31.7 L (39.0-53.0) % Neutrophils # 9.1 H (1.3-7.7) k/uL Lymphocytes # 0.4 L (1.0-4.8) k/uL Sodium 128 L (137-145) mmol/L Chloride 87 L (98-107) mmol/L Carbon Dioxide 38 H (22-30) mmol/L BUN 26 H (9-20) mg/dL Glucose 130 H (74-99) mg/dL POC Glucose (mg/dL) 245 H (75-99) mg/dL Assessment and Plan Plan: Assessment: 1 acute COPD exacerbation with secondary shortness of breath 2 acute on chronic hypoxic respiratory failure 3 severe COPD with an FEV1 of 39% baseline 4 coronary artery disease presents bypass surgery 5 left carotid artery stenosis 6 hypertension 7 hyperlipidemia 8 hypothyroidism 9 chronic back pain 10 2 separate episodes of A. fib RVR, self-limiting, patient had converted back to sinus rhythm Plan: he continues to improve, less bronchospastic and dyspneic, less congested, vital signs are stable, no fever or chills, tolerating ambulation, no complaints of chest pain, these lab work has been noted, and is relatively unremarkable, serum sodium is stable, no leukocytosis. From pulmonary perspective patient is stable for discharge home today, we'll need follow-up Dr. Xie in the office in 7-10 days I performed a history & physical examination of the patient and discussed their management with my nurse practitioner, Evonne Peters. I reviewed the nurse practitioner's note and agree with the documented findings and plan of care. Lung sounds are positive for bibasilar crackles. The findings and the impression was discussed with the patient. I attest to the documentation by the nurse practitioner. Time with Patient: Less than 30
[2019-01-21 15:22] VITALS: BMI 25.7
[2019-01-21 17:09] LABS: Glucose,Whole Blood 181 mg/dL (75-99)
[2019-01-21] MEDS: MAGNESIUM OXIDE 400 MG TAB PO SCH (17:15)
[2019-01-21 20:51] LABS: Glucose,Whole Blood 198 mg/dL (75-99)
[2019-01-21] MEDS: ATORVASTATIN 40 MG TAB PO SCH (22:28)
[2019-01-22] MEDS ORDERED: NA PHOS,M-B/NA PHOS,DI-BA 133 ML ENEMA RECTAL ONE (05:37)
[2019-01-22] MEDS ORDERED: MAGNESIUM HYDROXIDE 2,400 MG/10 ML CUP PO PRN (05:37)
[2019-01-22] MEDS: POLYETHYLENE GLYCOL 3350 17 GM POWD.PACK PO SCH (05:47)
[2019-01-22] MEDS: LEVOTHYROXINE 50 MCG TAB PO SCH (05:48)
[2019-01-22] MEDS: methylPREDNISolone SOD SUCCI 125 MG/2 ML VIAL IV SCH ×3 (05:48→17:41)
[2019-01-22] MEDS: SENNOSIDES 8.6 MG TAB PO SCH (05:54)
[2019-01-22] MEDS: ESCITALOPRAM 10 MG TAB PO SCH (07:25)
[2019-01-22] MEDS: PANTOPRAZOLE 40 MG TABLET PO SCH (07:25)
[2019-01-22] MEDS: AMOXIC-POT CLAV 875-125MG 1 EACH TAB PO SCH ×2 (07:25→19:59)
[2019-01-22] MEDS: VERAPAMIL SR 180 MG TABLET.ER PO SCH (07:25)
[2019-01-22] MEDS: FUROSEMIDE 20 MG TAB PO SCH (07:25)
[2019-01-22 07:26] LABS: Glucose,Whole Blood 175 mg/dL (75-99)
[2019-01-22] MEDS: TAMSULOSIN 0.4 MG CAP.ER.24H PO SCH (07:26)
[2019-01-22] MEDS: APIXABAN 5 MG TAB PO SCH (07:26)
[2019-01-22] MEDS: guaiFENesin 600 MG TABLET.ER PO SCH ×2 (07:26→19:59)
[2019-01-22] MEDS: ASPIRIN 81 MG PO SCH (07:26)
[2019-01-22] MEDS: INSULIN ASPART (NovoLOG) 100 UNIT/ML VIAL SQ SCH ×4 (08:22→20:09)
[2019-01-22] MEDS: SYMBICORT 160-4.5 MCG INHALER INHALATION SCH ×2 (08:36→19:51)
[2019-01-22] MEDS: IPRATROPIUM-ALBUTEROL 3 ML NEB INHALATION SCH ×4 (08:36→19:48)
[2019-01-22 09:06] LABS: Blood Urea Nitrogen 32 mg/dL (9-20); Calcium 8.8 mg/dL (8.4-10.2); Chloride 85 mmol/L (98-107); Glucose 139 mg/dL (74-99); Potassium 4.2 mmol/L (3.5-5.1); Sodium 130 mmol/L (137-145)
[2019-01-22 09:12] LABS: Anion Gap 6 mmol/L; Carbon Dioxide 39 mmol/L (22-30)
[2019-01-22] MEDS ORDERED: FUROSEMIDE 10 MG/ML 4 ML VIAL IV STA (12:08)
[2019-01-22 12:09] LABS: Glucose,Whole Blood 111 mg/dL (75-99)
--- NOTE | 2019-01-22 12:11 | P.PN ---
Subjective This is a pleasant 78 years old male with past medical history of advanced COPD, coronary artery disease status post bypass surgery, hypertension, h yperlipidemia, hyperthyroidism, chronic back pain. Presents with dyspnea, 456 days, associated with cough and yellow-green phlegm but no chest pain. Patient is on home oxygen at 2 L via nasal cannula. Vitals Table, blood pressure. He is saturating 96% on 4 L oxygen. Labs reviewed, CBC is unremarkable. Sodium 127, creatinine 0.7. Troponins are negative. Chest x-ray: Pulmonary fibrosis and probable COPD, atelectasis but no CHF. 01/18/2019 Patient yesterday developed an episode of tachycardia up to 160 bpm, in which she was asymptomatic with a stable blood pressure, his heart rate was controlled with 1 dose of metoprolol 25 mg, looking at the monitor and loose irregular and with no P wave suggestive of atrial fibrillation. His vitals currently show and heart rate of 62 with blood pressure 149/81. Transient 98% on 3 L nasal cannula. Cardiology team has been consulted for his episodic possible atrial fibrillation. Patient still have some dyspnea although is improving, her meta stases on IV Solu-Medrol and doxycycline. Sodium 127, replaced sodium is pending. Sugar is controlled Patient at home use 2 L of oxygen via NC. Also patient complains from chronic back pain which was a bit worse this morning and he got one extra doses of [place]. 01/19/2019 Patient states that his dyspnea is worsening today although his been on Solu- Medrol. His vitals are stable and he is saturating 98% on 2 L. With Little tachypnea. Labs showing hyponatremia of 127, which is a stable. And when corrected for hyperglycemia it will be 129. No leukocytosis. Repeat chest x- ray showing worsening infiltrate. His been on doxycycline. We'll switch that to Zosyn. Patient also with a new onset A. fib, paroxysmal. Patient has been evaluated by research software engineer who changed his metoprolol to bear panel, check thyroid function tests were within normal limits and start him on Eliquis. 01/20/2019 Patient is still being treated for his COPD exacerbation, history of some dyspnea; has some secretions that are thick and his airways. Patient was a started on incentive spirometry this morning and he was encouraged to use it. He saturating 97% on 2 L via nasal cannula water-drinking. His leukocytosis is mild mostly due to the steroid effect. He remains on antibiotic. Patient also was started on Eliquis for his new onset A. fib. His heart rate is controlled currently 01/21/2019 Patient dyspnea is improving however he still have significant wheezing and he does not think he is ready for discharge today. He can walk short distances with some dyspnea. And remains on IV Solu-Medrol and antibiotics. His vitals are stable, including heart rate is controlled for his history of recent atrial flutter. He is currently on verapamil, And Eliquis. Patient has been followed by pulmonary team and he followed by research software engineer. Sodium still 128, place patient on fluid restriction 1500 per day. He is using his incentive spirometry. 01/22/2019 Patient dyspnea is improving he has minimal air wheezing his air entry is equal in both sides. His breathing is much improved. However patient last night was complained from abdominal pain and his abdomen was distended. He got different bowel regimens and anymore and he already went for times, he still feels that his abdomen is uncomfortable. Also is complaining from leg swelling. Other than that patient denies other symptoms. No dyspnea. No chest pain. He is able to walk to the bathroom without difficulty. I offered to do CAT scan of the abdomen and pelvis with IV contrast. Patient refused to do IV contrast says he cannot take it. We'll do CAT scan of the abdomen and pelvis without contrast and call surgical consult. One more dose of Lasix Objective - Vital Signs Vital signs: Vital Signs Temp 97.9 F 01/22/19 05:00 Pulse 88 01/22/19 05:00 Resp 18 01/22/19 08:00 BP 173/88 01/22/19 05:00 Pulse Ox 97 01/22/19 05:00 Intake & Output 01/21/19 01/22/19 01/22/19 18:59 06:59 18:59 Intake Total 100 1066 Output Total 1200 Balance -1100 1066 Weight 68.039 kg Intake: Intake, IV Titration 100 Amount Piperacillin-Tazobactam 3 100 .375 gm In Sodium Chloride 0.9% 100 ml @ 25 mls/hr IVPB Q8HR [facility] Rx# :[id number] Oral 1066 Output: Urine 1200 Other: Voiding Method Toilet Toilet # Voids 2 2 - Exam GENERAL: The patient is alert and oriented x3, not in any acute distress. Well developed, well nourished. HEENT: Pupils are round and equally reacting to light. EOMI. No scleral icterus. No conjunctival pallor. Normocephalic, atraumatic. No pharyngeal erythema. No thyromegaly. CARDIOVASCULAR: S1 and S2 present. No murmurs, rubs, or gallops. -PULMONARY: Chest is clear to auscultation, Bilateral expiratory wheezing, Harsh breath sounds ABDOMEN: Soft, nontender, nondistended, normoactive bowel sounds. No palpable organomegaly. MUSCULOSKELETAL: No joint swelling or deformity. -EXTREMITIES: No cyanosis, clubbing, . Bilateral mild to moderate leg edema NEUROLOGICAL: Gross neurological examination did not reveal any focal deficits. SKIN: No rashes. - Labs CBC & Chem 7: 01/21/19 06:58 01/22/19 08:41 Labs: Abnormal Lab Results - Last 24 Hours (Table) 01/21/19 01/21/19 01/22/19 Range/Units 17:07 20:50 07:25 Sodium (137-145) mmol/L Chloride (98-107) mmol/L Carbon Dioxide (22-30) mmol/L BUN (9-20) mg/dL Glucose (74-99) mg/dL POC Glucose (mg/dL) 181 H 198 H 175 H (75-99) mg/dL 01/22/19 Range/Units 08:41 Sodium 130 L (137-145) mmol/L Chloride 85 L (98-107) mmol/L Carbon Dioxide 39 H (22-30) mmol/L BUN 32 H (9-20) mg/dL Glucose 139 H (74-99) mg/dL POC Glucose (mg/dL) (75-99) mg/dL Assessment and Plan Assessment: Acute COPD exacerbation, history of advanced COPD. Improved acute on Chronic hypoxic respiratory failure Abdominal pain and constipation Mild to moderate leg swelling Paroxysmal atrial fibrillation, currently heart rate is controlled. Patient is started on a Eliquis History of coronary artery disease, status post CABG Left carotid artery stenosis Hypertension Hyperlipidemia Hypothyroidism Chronic back pain Plan: This is a pleasant 78 years old male presents with acute COPD exacerbation, continue with steroids, breathing treatments and oxygen therapy. Bronchodilators. Call pulmonary consult. echocardiogram reviewed. Cardiology consult is appreciated. Continue with verapamil and Eliquis Labs and medication were reviewed.. Continue same treatment. Continue with symptomatic treatment. Resume home medication. Monitor lytes and vitals. DVT and GI prophylaxis. Further recommendations of the clinical course of the patient DVT prophylaxis: Subcutaneous Lovenox GI Prophylaxis: Pepcid PT/OT: Pending Prognosis is guarded
--- NOTE | 2019-01-22 13:30 | P.GSCN ---
History of Present Illness Consult date: 01/22/19 Past Medical History Past Medical History: Coronary Artery Disease (CAD), Chest Pain / Angina, COPD, Hyperlipidemia, Hypertension, Osteoarthritis (OA), Pneumonia, Thyroid Disorder Additional Past Medical History / Comment(s): COPD, coronary artery disease with previous quadruple bypass surgery, hypertension, hyperlipidemia, hypothyroidism, chronic back pain, nephrolithiasis, chronic arthritic pain involving the back and shoulder, History of Any Multi-Drug Resistant Organisms: None Reported Past Surgical History: Coronary Bypass/CABG, Heart Catheterization Additional Past Surgical History / Comment(s): Coronary artery bypass surgery and the patient had four-vessel bypass, back surgery, ORIF of the left arm/hand area and cataract surgery with intraocular lens placement Past Anesthesia/Blood Transfusion Reactions: Previous Problems w/ Anesthesia Additional Past Anesthesia/Blood Transfusion Reaction / Comm: DIFFICULTY WAKING UP Past Psychological History: No Psychological Hx Reported Smoking Status: Former smoker Past Alcohol Use History: Occasional Past Drug Use History: None Reported - Past Family History Father History Unknown: Yes Family Medical History: No Reported History Additional Family Medical History / Comment(s): Vang Mother Family Medical History: Asthma, COPD Medications and Allergies Home Medications Medication Instructions Recorded Confirmed Type Aspirin EC [Ecotrin Low Dose] 81 mg PO DAILY 10/11/15 01/16/19 History Atorvastatin [Lipitor] 40 mg PO HS 10/11/15 01/16/19 History Levothyroxine Sodium [Synthroid] 50 mcg PO DAILY 10/11/15 01/16/19 History Potassium Chloride ER [K-Dur 20] 20 meq PO DAILY 10/11/15 01/16/19 History Tiotropium [place] [Spiriva 1 puff INHALATION RT-DAILY 10/11/15 01/16/19 History Respimat] Budesonide/Formoterol Fumarate 2 puff INHALATION RT-BID 03/26/18 01/16/19 History [Symbicort 160-4.5 Mcg Inhaler] Nitroglycerin 0.4 mg SL Q5M PRN 03/26/18 01/16/19 History Pantoprazole [Protonix] 40 mg PO DAILY 03/26/18 01/16/19 History Tamsulosin HCl [Flomax] 0.4 mg PO DAILY 03/26/18 01/16/19 History Triamcinolone 0.1% Cream [Kenalog 1 applic TOPICAL BID 03/26/18 01/16/19 History 0.1% Cream] rOPINIRole HCL [Requip] 1 mg PO QAM 03/26/18 01/17/19 History HYDROcodone/APAP 10-325MG [Yeaddiss 1 tab PO TID PRN 10/07/18 01/16/19 History 10-325] Magnesium Oxide 400 mg PO HS 10/07/18 01/16/19 History Escitalopram Oxalate [Lexapro] 10 mg PO DAILY 10/08/18 01/16/19 History Ketoconazole [Ketoconazole 2%] 1 applic TOPICAL DAILY 10/08/18 01/16/19 History Albuterol Nebulized [Ventolin 2.5 mg INHALATION RT-TID #0 10/11/18 01/16/19 Rx Nebulized] Albuterol Inhaler [Ventolin Hfa 2 puff INHALATION RT-Q6H PRN 01/16/19 01/16/19 History Inhaler] Doxycycline Monohydrate [Monodox] 100 mg PO BID 01/16/19 01/16/19 History Furosemide [Lasix] 20 mg PO DAILY 01/16/19 01/16/19 History Metoprolol Succinate (ER) [Toprol 25 mg PO DAILY 01/16/19 01/16/19 History Xl] Nystatin 100,000Unit/gm Cream 1 applic TOPICAL BID 01/16/19 01/16/19 History [Mycostatin Cream] predniSONE See Taper PO DIRECTED 01/16/19 01/16/19 History Allergies Allergy/AdvReac Type Severity Reaction Status Date / Time morphine Allergy Unknown Verified 01/16/19 16:06 iodine AdvReac Rapid Verified 01/16/19 16:06 Heart Rate Surgical - Exam Osteopathic Statement: *. No significant issues noted on an osteopathic structural exam other than those noted in the History and Physical/Consult. Vital Signs Temp Pulse Resp BP Pulse Ox 97.9 F 59 L 22 156/83 95 01/16/19 15:47 01/16/19 15:47 01/16/19 15:47 01/16/19 15:47 01/16/19 15:47 - General moderate distress, moderate pain, chronically ill - Eyes PERRL - Respiratory On O2, chronic COPD - Cardiovascular Afib - Abdomen Soft, distended, tender to palpation in the left lower quadrant. No RRG - Neurologic normal coordination, normal sensation - Psychiatric oriented to time, oriented to person, oriented to place Results - Labs 01/21/19 06:58 01/22/19 08:41 Abnormal Lab Results - Last 24 Hours (Table) 01/21/19 01/21/19 01/22/19 Range/Units 17:07 20:50 07:25 Sodium (137-145) mmol/L Chloride (98-107) mmol/L Carbon Dioxide (22-30) mmol/L BUN (9-20) mg/dL Glucose (74-99) mg/dL POC Glucose (mg/dL) 181 H 198 H 175 H (75-99) mg/dL 01/22/19 01/22/19 Range/Units 08:41 12:08 Sodium 130 L (137-145) mmol/L Chloride 85 L (98-107) mmol/L Carbon Dioxide 39 H (22-30) mmol/L BUN 32 H (9-20) mg/dL Glucose 139 H (74-99) mg/dL POC Glucose (mg/dL) 111 H (75-99) mg/dL Diabetes panel 01/22/19 Range/Units 08:41 Sodium 130 L (137-145) mmol/L Potassium 4.2 (3.5-5.1) mmol/L Chloride 85 L (98-107) mmol/L Carbon Dioxide 39 H (22-30) mmol/L BUN 32 H (9-20) mg/dL Creatinine 0.93 (0.66-1.25) mg/dL Glucose 139 H (74-99) mg/dL Calcium 8.8 (8.4-10.2) mg/dL Calcium panel 01/22/19 Range/Units 08:41 Calcium 8.8 (8.4-10.2) mg/dL Pituitary panel 01/22/19 Range/Units 08:41 Sodium 130 L (137-145) mmol/L Potassium 4.2 (3.5-5.1) mmol/L Chloride 85 L (98-107) mmol/L Carbon Dioxide 39 H (22-30) mmol/L BUN 32 H (9-20) mg/dL Creatinine 0.93 (0.66-1.25) mg/dL Glucose 139 H (74-99) mg/dL Calcium 8.8 (8.4-10.2) mg/dL Adrenal panel 01/22/19 Range/Units 08:41 Sodium 130 L (137-145) mmol/L Potassium 4.2 (3.5-5.1) mmol/L Chloride 85 L (98-107) mmol/L Carbon Dioxide 39 H (22-30) mmol/L BUN 32 H (9-20) mg/dL Creatinine 0.93 (0.66-1.25) mg/dL Glucose 139 H (74-99) mg/dL Calcium 8.8 (8.4-10.2) mg/dL Assessment and Plan Assessment: Worsening abdominal pain and distention, COPD exacerbation on Steroids, CAD, Afib on eliquis Plan: NPO, CT scan has been performed however the system is malfunctioning and the images can not be uploaded at this time per radiology department so radiologist and myself have not been able to review images. If patient has a condition requiring surgery he is very high risk due to his multiple co-morbidities. I discussed this with him, including risks of bleeding, infection, need for prolonged intubation and even . I also de scribed that since he has so many medical co-morbidities along with being on steroids if he requires a colon resection he would not be a candidate for re- anastomosis and would require ostomy. He understood and stated he would need to talk to his .
--- NOTE | 2019-01-22 14:40 | CT ---
EXAMINATION TYPE: CT abdomen pelvis wo con DATE OF EXAM: 01/22/2019 COMPARISON: None HISTORY: Abdominal pain CT DLP: 536.60 mGycm Automated exposure control for dose reduction was used. TECHNIQUE: Helical acquisition of images was performed from the lung bases through the pelvis. FINDINGS: There is mild subsegmental atelectasis at the lung bases. There is no pleural effusion. Heart size is normal. There is no pericardial effusion. Liver shows no focal defect. Spleen appears normal. There is no pancreatic mass. Stomach appears norm al. There is no adrenal mass. Kidneys have normal size. There is no hydronephrosis. Ureters are not dilat ed. Bladder distends smoothly. There is prostatic calcification. There is no inguinal hernia. There are numerous sigmoid diverticula. There are multiple distended loops of large bowel with fluid levels. There is no mesenteric edema. There is no evidence of a bowel obstruction. There is no free a ir. There is no ascites. There is no evidence of a thickened appendix. There is mild subcutaneous edema around the abdomen. There is multilevel spondylotic changes in the l umbar spine. There is T12 25% anterior wedging that is probably old. IMPRESSION: SIGMOID DIVERTICULOSIS. LARGE BOWEL FLUID LEVELS WITH DISTENTION CONSISTENT WITH ILEUS. SUBCUTANEOUS EDEMA.
[2019-01-22 17:26] LABS: Glucose,Whole Blood 150 mg/dL (75-99)
[2019-01-22] MEDS: MAGNESIUM OXIDE 400 MG TAB PO SCH (17:42)
[2019-01-22] MEDS: ATORVASTATIN 40 MG TAB PO SCH (19:59)
[2019-01-22 20:10] LABS: Glucose,Whole Blood 138 mg/dL (75-99)
[2019-01-22] MEDS ORDERED: DEXTROSE 5%-0.45% NACL 1,000 ML IV SCH (22:00)
[2019-01-23] MEDS: LEVOTHYROXINE 50 MCG TAB PO SCH (05:50)
[2019-01-23 06:52] LABS: Glucose,Whole Blood 121 mg/dL (75-99)
[2019-01-23 07:48] LABS: Basophils % (A) 0 %; Eosinophils % (A) 0 %; HCT 33.4 % (39.0-53.0); HGB 10.9 gm/dL (13.0-17.5); Lymphocytes # (A) 0.5 k/uL (1.0-4.8); Lymphocytes % (A) 4 %; MCH 29.2 pg (25.0-35.0); MCHC 32.5 g/dL (31.0-37.0); MCV 90.1 fL (80.0-100.0); Mean Platelet Volume 6.9; Monocytes # (A) 0.8 k/uL (0-1.0); Monocytes % (A) 7 %; Neutrophils # (A) 11.1 k/uL (1.3-7.7); Neutrophils % (A) 89 %; Platelet Count 307 k/uL (150-450); RBC 3.71 m/uL (4.30-5.90); WBC 12.5 k/uL (3.8-10.6)
[2019-01-23 08:08] LABS: Anion Gap 5 mmol/L; Blood Urea Nitrogen 30 mg/dL (9-20); Calcium 8.3 mg/dL (8.4-10.2); Chloride 85 mmol/L (98-107); Glucose 102 mg/dL (74-99); Potassium 4.6 mmol/L (3.5-5.1); Sodium 130 mmol/L (137-145)
[2019-01-23] MEDS: SYMBICORT 160-4.5 MCG INHALER INHALATION SCH ×2 (08:08→20:10)
[2019-01-23] MEDS: IPRATROPIUM-ALBUTEROL 3 ML NEB INHALATION SCH ×4 (08:08→20:10)
[2019-01-23 08:15] LABS: Carbon Dioxide 40 mmol/L (22-30)
[2019-01-23] MEDS: INSULIN ASPART (NovoLOG) 100 UNIT/ML VIAL SQ SCH ×4 (08:17→21:57)
[2019-01-23] MEDS: ASPIRIN 81 MG PO SCH (08:17)
[2019-01-23] MEDS: ESCITALOPRAM 10 MG TAB PO SCH (08:21)
[2019-01-23] MEDS: SENNOSIDES 8.6 MG TAB PO SCH (08:21)
[2019-01-23] MEDS: guaiFENesin 600 MG TABLET.ER PO SCH ×2 (08:21→21:57)
[2019-01-23] MEDS: VERAPAMIL SR 180 MG TABLET.ER PO SCH (08:21)
[2019-01-23] MEDS: AMOXIC-POT CLAV 875-125MG 1 EACH TAB PO SCH ×2 (08:21→21:57)
[2019-01-23] MEDS: predniSONE 20 MG TAB PO SCH (08:22)
[2019-01-23] MEDS: PANTOPRAZOLE 40 MG TABLET PO SCH (08:22)
[2019-01-23] MEDS: POLYETHYLENE GLYCOL 3350 17 GM POWD.PACK PO SCH (08:24)
[2019-01-23] MEDS: TAMSULOSIN 0.4 MG CAP.ER.24H PO SCH (08:24)
[2019-01-23 11:10] LABS: Glucose,Whole Blood 111 mg/dL (75-99)
--- NOTE | 2019-01-23 12:39 | P.PN ---
Subjective This is a pleasant 78 years old male with past medical history of advanced COPD, coronary artery disease status post bypass surgery, hypertension, h yperlipidemia, hyperthyroidism, chronic back pain. Presents with dyspnea, 456 days, associated with cough and yellow-green phlegm but no chest pain. Patient is on home oxygen at 2 L via nasal cannula. Vitals Table, blood pressure. He is saturating 96% on 4 L oxygen. Labs reviewed, CBC is unremarkable. Sodium 127, creatinine 0.7. Troponins are negative. Chest x-ray: Pulmonary fibrosis and probable COPD, atelectasis but no CHF. 01/18/2019 Patient yesterday developed an episode of tachycardia up to 160 bpm, in which she was asymptomatic with a stable blood pressure, his heart rate was controlled with 1 dose of metoprolol 25 mg, looking at the monitor and loose irregular and with no P wave suggestive of atrial fibrillation. His vitals currently show and heart rate of 62 with blood pressure 149/81. Transient 98% on 3 L nasal cannula. Cardiology team has been consulted for his episodic possible atrial fibrillation. Patient still have some dyspnea although is improving, her meta stases on IV Solu-Medrol and doxycycline. Sodium 127, replaced sodium is pending. Sugar is controlled Patient at home use 2 L of oxygen via NC. Also patient complains from chronic back pain which was a bit worse this morning and he got one extra doses of [place]. 01/19/2019 Patient states that his dyspnea is worsening today although his been on Solu- Medrol. His vitals are stable and he is saturating 98% on 2 L. With Little tachypnea. Labs showing hyponatremia of 127, which is a stable. And when corrected for hyperglycemia it will be 129. No leukocytosis. Repeat chest x- ray showing worsening infiltrate. His been on doxycycline. We'll switch that to Zosyn. Patient also with a new onset A. fib, paroxysmal. Patient has been evaluated by tree farmer who changed his metoprolol to bear panel, check thyroid function tests were within normal limits and start him on Eliquis. 01/20/2019 Patient is still being treated for his COPD exacerbation, history of some dyspnea; has some secretions that are thick and his airways. Patient was a started on incentive spirometry this morning and he was encouraged to use it. He saturating 97% on 2 L via nasal cannula water-drinking. His leukocytosis is mild mostly due to the steroid effect. He remains on antibiotic. Patient also was started on Eliquis for his new onset A. fib. His heart rate is controlled currently 01/21/2019 Patient dyspnea is improving however he still have significant wheezing and he does not think he is ready for discharge today. He can walk short distances with some dyspnea. And remains on IV Solu-Medrol and antibiotics. His vitals are stable, including heart rate is controlled for his history of recent atrial flutter. He is currently on verapamil, And Eliquis. Patient has been followed by pulmonary team and he followed by tree farmer. Sodium still 128, place patient on fluid restriction 1500 per day. He is using his incentive spirometry. 01/22/2019 Patient dyspnea is improving he has minimal air wheezing his air entry is equal in both sides. His breathing is much improved. However patient last night was complained from abdominal pain and his abdomen was distended. He got different bowel regimens and anymore and he already went for times, he still feels that his abdomen is uncomfortable. Also is complaining from leg swelling. Other than that patient denies other symptoms. No dyspnea. No chest pain. He is able to walk to the bathroom without difficulty. I offered to do CAT scan of the abdomen and pelvis with IV contrast. Patient refused to do IV contrast says he cannot take it. We'll do CAT scan of the abdomen and pelvis without contrast and call surgical consult. One more dose of Lasix 01/23/2019 Patient breathing is still improving. No chest pain and minimal dyspnea. Still on oxygen via nasal cannula. Patient had abdominal pain yesterday and CAT scan showed ileus. Surgical team evaluated the patient and considering surgery. Today his abdominal pain is resolved. He is passing gases and he had bowel movement yesterday. No nausea vomiting. He is still nothing by mouth. Surgical team will evaluate the patient. He is hemodynamically stable. His mild leukocytosis but he is on steroids. Sodium 123. Creatinine 0.9. Sugar is controlled Objective - Vital Signs Vital signs: Vital Signs Temp 97.3 F L 01/23/19 11:53 Pulse 77 01/23/19 11:53 Resp 15 01/23/19 11:53 BP 139/68 01/23/19 11:53 Pulse Ox 97 01/23/19 11:53 Intake & Output 01/22/19 01/23/1901/23/19 18:59 06:59 18:59 Intake Total 360 0 Balance 360 0 Intake: Oral 360 0 Other: Voiding Method Toilet Toilet Toilet # Voids 2 2 # Bowel Movements 5 - Exam GENERAL: The patient is alert and oriented x3, not in any acute distress. Well developed, well nourished. HEENT: Pupils are round and equally reacting to light. EOMI. No scleral icterus. No conjunctival pallor. Normocephalic, atraumatic. No pharyngeal erythema. No thyromegaly. CARDIOVASCULAR: S1 and S2 present. No murmurs, rubs, or gallops. -PULMONARY: Chest is clear to auscultation, Bilateral expiratory wheezing, Harsh breath sounds ABDOMEN: Soft, nontender, nondistended, normoactive bowel sounds. No palpable organomegaly. MUSCULOSKELETAL: No joint swelling or deformity. -EXTREMITIES: No cyanosis, clubbing, . Bilateral mild to moderate leg edema NEUROLOGICAL: Gross neurological examination did not reveal any focal deficits. SKIN: No rashes. - Labs CBC & Chem 7: 01/23/19 06:40 01/23/19 06:40 Labs: Abnormal Lab Results - Last 24 Hours (Table) 01/22/19 01/22/19 01/23/19 Range/Units 17:25 20:09 06:40 WBC (3.8-10.6) k/uL RBC (4.30-5.90) m/uL Hgb (13.0-17.5) gm/dL Hct (39.0-53.0) % Neutrophils # (1.3-7.7) k/uL Lymphocytes # (1.0-4.8) k/uL Sodium 130 L (137-145) mmol/L Chloride 85 L (98-107) mmol/L Carbon Dioxide 40 H (22-30) mmol/L BUN 30 H (9-20) mg/dL Glucose 102 H (74-99) mg/dL POC Glucose (mg/dL) 150 H 138 H (75-99) mg/dL Calcium 8.3 L (8.4-10.2) mg/dL 01/23/19 01/23/19 01/23/19 Range/Units 06:40 06:51 11:09 WBC 12.5 H (3.8-10.6) k/uL RBC 3.71 L (4.30-5.90) m/uL Hgb 10.9 L (13.0-17.5) gm/dL Hct 33.4 L (39.0-53.0) % Neutrophils # 11.1 H (1.3-7.7) k/uL Lymphocytes # 0.5 L (1.0-4.8) k/uL Sodium (137-145) mmol/L Chloride (98-107) mmol/L Carbon Dioxide (22-30) mmol/L BUN (9-20) mg/dL Glucose (74-99) mg/dL POC Glucose (mg/dL) 121 H 111 H (75-99) mg/dL Calcium (8.4-10.2) mg/dL Assessment and Plan Assessment: Acute COPD exacerbation, history of advanced COPD. Improved acute on Chronic hypoxic respiratory failure Abdominal pain and constipation Abdominal ileus Mild to moderate leg swelling Paroxysmal atrial fibrillation, currently heart rate is controlled. Patient is started on a Eliquis History of coronary artery disease, status post CABG Left carotid artery stenosis Hypertension Hyperlipidemia Hypothyroidism Chronic back pain Plan: This is a pleasant 78 years old male presents with acute COPD exacerbation, continue with steroids, breathing treatments and oxygen therapy. Bronchodi lators. Call pulmonary consult. echocardiogram reviewed. Cardiology consult is appreciated. Continue with verapamil and Eliquis. Surgical team evaluated the patient Labs and medication were reviewed.. Continue same treatment. Continue with symptomatic treatment. Resume home medication. Monitor lytes and vitals. DVT and GI prophylaxis. Further recommendations of the clinical course of the patient DVT prophylaxis: Subcutaneous Lovenox GI Prophylaxis: Pepcid PT/OT: Pending Prognosis is guarded
--- NOTE | 2019-01-23 13:51 | P.PN ---
Subjective Progress Note Date: 01/23/19 On today's evaluation the patient doing well without any specific complaints. He developed some large bowel ileus and he was given enemas and laxatives and he is producing adequate amount of urine output and stooling for now. Abdomen is nondistended. The pain is resolved. He is passing gas. No significant shortness of breath. He continues to have a congested cough. No significant sputum production. No chest pain. No pleurisy. Mild leukocytosis is related to steroid use. No other significant events overnight. Objective - Vital Signs Vital signs: Vital Signs Temp 97.3 F L 01/23/19 11:53 Pulse 77 01/23/19 11:53 Resp 15 01/23/19 11:53 BP 139/68 01/23/19 11:53 Pulse Ox 97 01/23/19 11:53 Intake & Output 01/22/19 01/23/19 01/23/19 18:59 06:59 18:59 Intake Total 360 0 610 Output Total 1 Balance 360 0 609 Intake: Oral 360 0 610 Output: Stool 1 Other: Voiding Method Toilet Toilet Toilet # Voids 2 2 1 # Bowel Movements 5 - Exam GENERAL EXAM: Alert, pleasant, 78-year-old white male, on 2 L of oxygen, calm and comfortable, sitting in the chair, comfortable in no apparent distress. HEAD: Normocephalic/atraumatic. EYES: Normal reaction of pupils, equal size. Conjunctiva pink, sclera white. NOSE: Clear with pink turbinates. THROAT: No erythema or exudates. NECK: No masses, no JVD, no thyroid enlargement, no adenopathy. CHEST: No chest wall deformity. Symmetrical expansion. LUNGS: Equal air entry with expiratory wheezes, less congestion on today's exam CVS: Regular rate and rhythm, normal S1 and S2, no gallops, no murmurs, no rubs ABDOMEN: Soft, nontender. No hepatosplenomegaly, normal bowel sounds, no guarding or rigidity. EXTREMITIES: No clubbing, mild pretibial edema, no cyanosis, 2+ pulses and upper and lower extremities. MUSCULOSKELETAL: Muscle strength and tone normal. SPINE: No scoliosis or deformity SKIN: No rashes CENTRAL NERVOUS SYSTEM: Alert and oriented -3. No focal deficits, tone is normal in all 4 extremities. PSYCHIATRIC: Alert and oriented -3. Appropriate affect. Intact judgment and insight. - Labs CBC & Chem 7: 01/23/19 06:40 01/23/19 06:40 Labs: Abnormal Lab Results - Last 24 Hours (Table) 01/22/19 01/22/19 01/23/19 Range/Units 17:25 20:09 06:40 WBC (3.8-10.6) k/uL RBC (4.30-5.90) m/uL Hgb (13.0-17.5) gm/dL Hct (39.0-53.0) % Neutrophils # (1.3-7.7) k/uL Lymphocytes # (1.0-4.8) k/uL Sodium 130 L (137-145) mmol/L Chloride 85 L (98-107) mmol/L Carbon Dioxide 40 H (22-30) mmol/L BUN 30 H (9-20) mg/dL Glucose 102 H (74-99) mg/dL POC Glucose (mg/dL) 150 H 138 H (75-99) mg/dL Calcium 8.3 L (8.4-10.2) mg/dL 01/23/19 01/23/19 01/23/19 Range/Units 06:40 06:51 11:09 WBC 12.5 H (3.8-10.6) k/uL RBC 3.71 L (4.30-5.90) m/uL Hgb 10.9 L (13.0-17.5) gm/dL Hct 33.4 L (39.0-53.0) % Neutrophils # 11.1 H (1.3-7.7) k/uL Lymphocytes # 0.5 L (1.0-4.8) k/uL Sodium (137-145) mmol/L Chloride (98-107) mmol/L Carbon Dioxide (22-30) mmol/L BUN (9-20) mg/dL Glucose (74-99) mg/dL POC Glucose (mg/dL) 121 H 111 H (75-99) mg/dL Calcium (8.4-10.2) mg/dL Assessment and Plan Plan: 1 acute COPD exacerbation with secondary shortness of breath, improved 2 acute on chronic hypoxic respiratory failure 3 severe COPD with an FEV1 of 39% baseline 4 coronary artery disease presents bypass surgery 5 large bowel ileus, improved 6 hypertension 7 hyperlipidemia 8 hypothyroidism 9 chronic back pain 10 2 separate episodes of A. fib RVR, self-limiting, patient had converted back to sinus rhythm 11 left carotid artery stenosis Plan Levi bowel activity. Continue DuoNeb the right since [id number]. Continue Augmentin. Prednisone burst taper and the patient is currently on 40 mg. Oxygen 2 L. Discharge planning is in progress.
--- NOTE | 2019-01-23 14:05 | P.PN ---
Subjective Progress Note Date: 01/23/19 Patient had large BM and flatus yesterday evening and is feeling much better today. Abdominal pain and distention is resolved. Objective - Vital Signs Vital signs: Vital Signs Temp 97.3 F L 01/23/19 11:53 Pulse 77 01/23/19 11:53 Resp 15 01/23/19 11:53 BP 139/68 01/23/19 11:53 Pulse Ox 97 01/23/19 11:53 Intake & Output 01/22/19 01/23/19 01/23/19 18:59 06:59 18:59 Intake Total 360 0 610 Output Total 1 Balance 360 0 609 Intake: Oral 360 0 610 Output: Stool 1 Other: Voiding Method Toilet Toilet Toilet # Voids 2 2 1 # Bowel Movements 5 - Constitutional General appearance: Present: cooperative - Respiratory Details: nonlabored - Cardiovascular Details: afib - Gastrointestinal Gastrointestinal Comment(s): S/NT/ND - Labs CBC & Chem 7: 01/23/19 06:40 01/23/19 06:40 Labs: Abnormal Lab Results - Last 24 Hours (Table) 01/22/19 01/22/19 01/23/19 Range/Units 17:25 20:09 06:40 WBC (3.8-10.6) k/uL RBC (4.30-5.90) m/uL Hgb (13.0-17.5) gm/dL Hct (39.0-53.0) % Neutrophils # (1.3-7.7) k/uL Lymphocytes # (1.0-4.8) k/uL Sodium 130 L (137-145) mmol/L Chloride 85 L (98-107) mmol/L Carbon Dioxide 40 H (22-30) mmol/L BUN 30 H (9-20) mg/dL Glucose 102 H (74-99) mg/dL POC Glucose (mg/dL) 150 H 138 H (75-99) mg/dL Calcium 8.3 L (8.4-10.2) mg/dL 01/23/19 01/23/19 01/23/19 Range/Units 06:40 06:51 11:09 WBC 12.5 H (3.8-10.6) k/uL RBC 3.71 L (4.30-5.90) m/uL Hgb 10.9 L (13.0-17.5) gm/dL Hct 33.4 L (39.0-53.0) % Neutrophils # 11.1 H (1.3-7.7) k/uL Lymphocytes # 0.5 L (1.0-4.8) k/uL Sodium (137-145) mmol/L Chloride (98-107) mmol/L Carbon Dioxide (22-30) mmol/L BUN (9-20) mg/dL Glucose (74-99) mg/dL POC Glucose (mg/dL) 121 H 111 H (75-99) mg/dL Calcium (8.4-10.2) mg/dL Assessment and Plan Assessment: Worsening abdominal pain and distention, COPD exacerbation on Steroids, CAD, Afib on eliquis Plan: Patients pain is resolved. He may advance diet as tolerated to regular. No plans for surgical intervention. Continue with bowel regimen. Please feel free to contact me directly with any further concerns.
[2019-01-23 17:11] LABS: Glucose,Whole Blood 155 mg/dL (75-99)
[2019-01-23] MEDS: MAGNESIUM OXIDE 400 MG TAB PO SCH (17:37)
[2019-01-23 20:21] LABS: Glucose,Whole Blood 140 mg/dL (75-99)
[2019-01-23] MEDS: APIXABAN 5 MG TAB PO SCH (21:57)
[2019-01-23] MEDS: ATORVASTATIN 40 MG TAB PO SCH (21:57)
[2019-01-24] MEDS: IPRATROPIUM-ALBUTEROL 3 ML NEB INHALATION SCH ×2 (04:52→12:36)
[2019-01-24] MEDS: LEVOTHYROXINE 50 MCG TAB PO SCH (05:56)
[2019-01-24 06:56] LABS: Glucose,Whole Blood 94 mg/dL (75-99)
[2019-01-24] MEDS: INSULIN ASPART (NovoLOG) 100 UNIT/ML VIAL SQ SCH ×2 (07:35→13:11)
[2019-01-24] MEDS: SYMBICORT 160-4.5 MCG INHALER INHALATION SCH (07:48)
[2019-01-24 08:09] LABS: Basophils % (A) 0 %; Eosinophils # (A) 0.1 k/uL (0-0.7); Eosinophils % (A) 1 %; HGB 10.4 gm/dL (13.0-17.5); Lymphocytes # (A) 0.7 k/uL (1.0-4.8); Lymphocytes % (A) 7 %; MCH 29.5 pg (25.0-35.0); MCHC 32.3 g/dL (31.0-37.0); MCV 91.2 fL (80.0-100.0); Mean Platelet Volume 6.3; Monocytes # (A) 0.7 k/uL (0-1.0); Monocytes % (A) 6 %; Neutrophils # (A) 8.6 k/uL (1.3-7.7); Neutrophils % (A) 85 %; Platelet Count 249 k/uL (150-450); RBC 3.51 m/uL (4.30-5.90); RDW 14.6 % (11.5-15.5); WBC 10.1 k/uL (3.8-10.6)
[2019-01-24] MEDS: AMOXIC-POT CLAV 875-125MG 1 EACH TAB PO SCH (08:39)
[2019-01-24] MEDS: ASPIRIN 81 MG PO SCH (08:39)
[2019-01-24] MEDS: APIXABAN 5 MG TAB PO SCH (08:39)
[2019-01-24] MEDS: PANTOPRAZOLE 40 MG TABLET PO SCH (08:39)
[2019-01-24] MEDS: guaiFENesin 600 MG TABLET.ER PO SCH (08:40)
[2019-01-24] MEDS: ESCITALOPRAM 10 MG TAB PO SCH (08:40)
[2019-01-24] MEDS: predniSONE 20 MG TAB PO SCH (08:41)
[2019-01-24] MEDS: SENNOSIDES 8.6 MG TAB PO SCH (08:41)
[2019-01-24] MEDS: POLYETHYLENE GLYCOL 3350 17 GM POWD.PACK PO SCH (08:41)
[2019-01-24] MEDS: TAMSULOSIN 0.4 MG CAP.ER.24H PO SCH (08:42)
[2019-01-24] MEDS: VERAPAMIL SR 180 MG TABLET.ER PO SCH (08:42)
[2019-01-24 11:11] LABS: Glucose,Whole Blood 121 mg/dL (75-99)
[2019-01-24 12:13] VITALS: BP 137/55; RESP 17; TEMP 97.9
[2019-01-24 12:49] VITALS: PULSE 88
--- NOTE | 2019-01-24 13:05 | P.DS ---
Providers Date of admission: 01/16/19 18:45 Attending physician: Della Eckert Consults: 01/17/19 09:58 Consult Physician Urgent Consulting Provider: Tam Morris Consult Reason/Comments: copd Do you want consulting provider notified?: Yes 01/17/19 16:19 Consult Physician Urgent Consulting Provider: Miguel Shi Consult Reason/Comments: heart rate elevated Do you want consulting provider notified?: Yes 01/22/19 12:12 Consult Physician Routine Consulting Provider: Mikey Grayson Consult Reason/Comments: abdominal pain Do you want consulting provider notified?: Yes Primary care physician: Scottie Iván [facility] Course: Diagnoses: Acute COPD exacerbation, history of advanced COPD. Improved acute on Chronic hypoxic respiratory failure Abdominal pain and constipation. Improving Abdominal ileus. Resolved Mild to moderate leg swelling Paroxysmal atrial fibrillation, currently heart rate is controlled. Patient is started on a Eliquis History of coronary artery disease, status post CABG Left carotid artery stenosis Hypertension Hyperlipidemia Hypothyroidism Chronic back pain Hospital course This is a pleasant 78 years old male with history of advanced COPD and coronary artery disease status post bypass surgery, hypertension, hyperlipidemia, hyperthyroidism, chronic back pain. Presents because of acute COPD exacerbation. The patient received treatment with steroids, breathing treatment, oxygen and antibiotics. He showed interval improvement in his dyspnea improved and back close to his baseline he denies chest pain. His been evaluated by pulmonary team and cleared him for discharge. His hospital course was complicated by atrial fibrillation. Patient was started on Eliquis and the abdominal 180 mg daily. As per cardiology recommendation. However patient developed abdominal pain and CAT scan showed ileus. Surgical evaluation was done. However his pain resolved spontaneously without any need for surgical intervention. Patient got his diet advanced and tolerated his regular diet. Patient has cleared for discharge by both pulmonary, cardiology and surgical team. Patient himself feels that his ready to be discharged home. He has no chest pain. No dyspnea. No change in urine habits. No abdominal pain or nausea vomiting. He is tolerating regular diet. He has regular bowel movement after the chemotherapy for his constipation. No fever. He is at home oxygen at 2 L nasal cannula. He got his oxygen at home. Problems and management plan was discussed with the patient and he verbalized understanding and acceptance Patient can be discharged in a stable condition but guarded prognosis. However he needs follow-up as an outpatient. Patient agrees with the appointments made for him with PCP in pulmonary team. Patient said that he will make appointments with his head counselor and he'll follow-up with [facility] as recommended. His Eliquis is covered, discussed with staff Gen: patient is a AAOx3, no distress CVS: S1-S2, RRR, no murmur Lungs: B/L CTA, no wheezing Abdomen: soft, no distention, no tenderness, positive bowel sounds Extremity: no leg edema or induration Time spent more than 35 minutes Patient Condition at Discharge: Fair Plan - Discharge Summary Discharge Rx Participant: No New Discharge Prescriptions: No Action Tiotropium [place] [Spiriva Respimat] 1 puff INHALATION RT-DAILY Potassium Chloride ER [K-Dur 20] 20 meq PO DAILY Levothyroxine Sodium [Synthroid] 50 mcg PO DAILY Aspirin EC [Ecotrin Low Dose] 81 mg PO DAILY Atorvastatin [Lipitor] 40 mg PO HS rOPINIRole HCL [Requip] 1 mg PO QAM Triamcinolone 0.1% Cream [Kenalog 0.1% Cream] 1 applic TOPICAL BID Tamsulosin HCl [Flomax] 0.4 mg PO DAILY Pantoprazole [Protonix] 40 mg PO DAILY Nitroglycerin 0.4 mg SL Q5M PRN PRN Reason: Chest Pain Budesonide/Formoterol Fumarate [Symbicort 160-4.5 Mcg Inhaler] 2 puff INHALATION RT-BID HYDROcodone/APAP 10-325MG [Wallace 10-325] 1 tab PO TID PRN PRN Reason: Pain Magnesium Oxide 400 mg PO HS Ketoconazole [Ketoconazole 2%] 1 applic TOPICAL DAILY Escitalopram Oxalate [Lexapro] 10 mg PO DAILY Albuterol Nebulized [Ventolin Nebulized] 2.5 mg INHALATION RT-TID #0 Albuterol Inhaler [Ventolin Hfa Inhaler] 2 puff INHALATION RT-Q6H PRN PRN Reason: Shortness Of Breath Nystatin 100,000Unit/gm Cream [Mycostatin Cream] 1 applic TOPICAL BID Metoprolol Succinate (ER) [Toprol Xl] 25 mg PO DAILY Furosemide [Lasix] 20 mg PO DAILY predniSONE See Taper PO DIRECTED Doxycycline Monohydrate [Monodox] 100 mg PO BID Discharge Medication List Aspirin EC [Ecotrin Low Dose] 81 mg PO DAILY 10/11/15 [History] Atorvastatin [Lipitor] 40 mg PO HS 10/11/15 [History] Levothyroxine Sodium [Synthroid] 50 mcg PO DAILY 10/11/15 [History] Potassium Chloride ER [K-Dur 20] 20 meq PO DAILY 10/11/15 [History] Tiotropium [place] [Spiriva Respimat] 1 puff INHALATION RT-DAILY 10/11/15 [History] Budesonide/Formoterol Fumarate [Symbicort 160-4.5 Mcg Inhaler] 2 puff INHALATION RT-BID 03/26/18 [History] Nitroglycerin 0.4 mg SL Q5M PRN 03/26/18 [History] Pantoprazole [Protonix] 40 mg PO DAILY 03/26/18 [History] Tamsulosin HCl [Flomax] 0.4 mg PO DAILY 03/26/18 [History] Triamcinolone 0.1% Cream [Kenalog 0.1% Cream] 1 applic TOPICAL BID 03/26/18 [History] rOPINIRole HCL [Requip] 1 mg PO QAM 03/26/18 [History] HYDROcodone/APAP 10-325MG [Wallace 10-325] 1 tab PO TID PRN 10/07/18 [History] Magnesium Oxide 400 mg PO HS 10/07/18 [History] Escitalopram Oxalate [Lexapro] 10 mg PO DAILY 10/08/18 [History] Ketoconazole [Ketoconazole 2%] 1 applic TOPICAL DAILY 10/08/18 [History] Albuterol Nebulized [Ventolin Nebulized] 2.5 mg INHALATION RT-TID #0 10/11/18 [Rx] Albuterol Inhaler [Ventolin Hfa Inhaler] 2 puff INHALATION RT-Q6H PRN 01/16/19 [History] Doxycycline Monohydrate [Monodox] 100 mg PO BID 01/16/19 [History] Furosemide [Lasix] 20 mg PO DAILY 01/16/19 [History] Metoprolol Succinate (ER) [Toprol Xl] 25 mg PO DAILY 01/16/19 [History] Nystatin 100,000Unit/gm Cream [Mycostatin Cream] 1 applic TOPICAL BID 01/16/19 [History] predniSONE See Taper PO DIRECTED 01/16/19 [History] Follow up Appointment(s)/Referral(s): Jorje Xie DO [Doctor of Osteopathic Medicine] - 03/11/19 1:30 pm Scottie Minor MD [Primary Care Provider] - 01/26/19 2:00 pm [facility] [NON-STAFF] - 1 Week (formally known [facility]) Kirt Amado DO [REFERRING] - 1 Week Miguel Shi MD [STAFF PHYSICIAN] - 02/16/19 3:45 pm Patient Instructions/Handouts: COPD (Chronic Obstructive Pulmonary Disease) (DC), Hypoxia (GEN) Activity/Diet/Wound Care/Special Instructions: cardiac diet activity is limited till you see your doctor Discharge Disposition: HOME SELF-CARE
--- NOTE | 2019-01-24 13:19 | P.PN ---
Subjective Progress Note Date: 01/24/19 Principal diagnosis: Dyspnea, COPD exacerbation This is a 78-year-old male patient with known history of COPD and addition to multiple medical problems most significant of which is coronary artery disease, previous bypass surgery, current artery disease, and other comorbidities such as CHF, hypothyroidism, hyperlipidemia, chronic anxiety/depression. The patient was in the hospital recently for an acute COPD exacerbation. Note that his FEV1 at baseline is around 39% of predicted and the patient is demented on a combination of Spiriva and Symbicort in addition to abuse albuterol on outpatient basis. The patient was came in because of worsening shortness of breath. He was doing some cleaning and mopping the floor and cleaning the carpets where he got exposed to dust and following that he became quite short of breath bronchospastic and wheezy and he end up coming to the hospital for an acute COPD exacerbation. No significant sputum production. No hemoptysis. No pleurisy. No chest pain. No significant leukocytosis. Chest x-ray showing COPD with some limited subsegmental atelectatic changes in lung bases bilaterally without evidence of any failure On 01/18/2019 patient seen in follow-up on medical surgical floor. He sitting up in the chair, in no acute distress, he states his breathing is improving, lung sounds reveal bibasilar crackles, no significant wheezes. Maintenance on supplemental oxygen, currently at 3 L, with a pulse ox of 98%, no fever or chills, patient did have an hour long run of A. fib with RVR with a rate of 168 last night, and had another episode the night before. Patient has been switched to Toprol-XL 25 mg daily, and cardiology has been consulted. No complaints of chest pain, patient is currently back in sinus rhythm with a controlled rate. Only occasional cough, no significant chest congestion. Mild pretibial edema. Influenza screen was negative. His labs have been reviewed, and showed sodium of 126, potassium is 4.3, chloride is 87, CO2 is 36, BUN is 22 and creatinine 0.81. ProBNP is 1630. On 01/19/2019 patient seen in follow-up on medical surgical floor. Today's exam patient is sounding a bit more congested, and there is some scattered expiratory wheezes, no recurrence of A. fib, patient remains in sinus rhythm with a controlled rate, he is on 2 L of oxygen with a pulse ox of 90%, no fever or chills. Chest x-ray was done, and showed chronic emphysematous changes with pleural/parenchymal fibrosis slight worsening of the left basilar Infiltrate or atelectasis on the background of chronic changes. Today's labs have been reviewed, and showed white blood cell count of 9.9, hemoglobin of 10.3, sodium of 127 potassium 4.0, chloride is 87, CO2 is 34, B1 is 22 creatinine 0.82. Patient remains on IV steroids, antibiotic coverage switched from doxycycline to Zosyn by attending physician. On 01/20/2019 patient is seen in follow-up on medical surgical floor. He states he is feeling better today, less congested, still remains bronchospastic, but clinically he feels better, he is able to ambulate, means on 2 L of oxygen with a pulse ox of 95%, afebrile. Today's labs have been reviewed, and showed the white blood cell count of 12.2, hemoglobin 10.7, serum sodium is improving, and is up to 128, potassium is 4.1, chloride is 88, CO2 is 37, B1 is 21 creatinine 0.83. Patient is on IV Zosyn, IV steroids and nebulized bronchodilators. On 01/21/2019 patient seen in follow-up on medical surgical floor. He is awake and alert, in no acute distress, he states he is improving, no worsening dyspne a, cough or congestion, lung sounds are positive for some residual wheezing, but overall is bronchospastic and dyspneic, he is ambulating in the room, he is on his 2 L of oxygen with a pulse ox of 98%, this is his home dose of oxygen. He is afebrile, vital signs are stable, today's lab work has been reviewed, showed white blood cell count is trending down, 9.9, hemoglobin of 10.2, serum sodium is 128, potassium is 4.7, chloride is 87, CO2 38, BUN is 26 creatinine is 0.97. On 01/24/2019 patient seen in follow-up on medical surgical floor. He is awake and alert, oriented 3, he is ambulating about the room on oxygen, with a pulse ox of 97%, no fever or chills, no worsening shortness of breath, lung sounds are positive for some minimal crackles at the bases, no rhonchi or wheezing. She is passing bowel movements, denies any abdominal pain, abdomen/pelvis CT from 01/22/2019 showed sigmoid diverticulosis, large bowel fluid level with distention consistent with ileus, which has resolved on today's exam, patient is passing flatus, and had a large bowel movement. No nausea, vomiting or diarrhea, today's labs have been reviewed, showed white blood cell count of 10.1, hemoglobin of 10.4. No acute events overnight, from pulmonary perspective patient is stable, and he is being discharged home today. Objective - Vital Signs Vital signs: Vital Signs Temp 97.9 F 01/24/19 12:13 Pulse 88 01/24/19 12:49 Resp 17 01/24/19 12:13 BP 137/55 01/24/19 12:13 Pulse Ox 98 01/24/19 12:13 Intake & Output 01/23/19 01/24/19 01/24/19 18:59 06:59 18:59 Intake Total 610 1020 Output Total 3 1 Balance 607 1020 -1 Intake: Oral 610 1020 Output: Stool 3 1 Other: Voiding Method Toilet Toilet Toilet # Voids 2 2 - Exam GENERAL EXAM: Alert, pleasant, 78-year-old white male, on 2 L of oxygen, calm and comfortable, sitting in the chair, comfortable in no apparent distress. HEAD: Normocephalic/atraumatic. EYES: Normal reaction of pupils, equal size. Conjunctiva pink, sclera white. NOSE: Clear with pink turbinates. THROAT: No erythema or exudates. NECK: No masses, no JVD, no thyroid enlargement, no adenopathy. CHEST: No chest wall deformity. Symmetrical expansion. LUNGS: Equal air entry with minimal bibasilar crackles, no wheezing, no rhonchi CVS: Regular rate and rhythm, normal S1 and S2, no gallops, no murmurs, no rubs ABDOMEN: Soft, nontender. No hepatosplenomegaly, normal bowel sounds, no guarding or rigidity. EXTREMITIES: No clubbing, mild pretibial edema, no cyanosis, 2+ pulses and upper and lower extremities. MUSCULOSKELETAL: Muscle strength and tone normal. SPINE: No scoliosis or deformity SKIN: No rashes CENTRAL NERVOUS SYSTEM: Alert and oriented -3. No focal deficits, tone is normal in all 4 extremities. PSYCHIATRIC: Alert and oriented -3. Appropriate affect. Intact judgment and insight. - Labs CBC & Chem 7: 01/24/19 06:55 01/23/19 06:40 Labs: Abnormal Lab Results - Last 24 Hours (Table) 01/23/19 01/23/19 01/24/19 Range/Units 17:10 20:16 06:55 RBC 3.51 L (4.30-5.90) m/uL Hgb 10.4 L (13.0-17.5) gm/dL Hct 32.0 L (39.0-53.0) % Neutrophils # 8.6 H (1.3-7.7) k/uL Lymphocytes # 0.7 L (1.0-4.8) k/uL POC Glucose (mg/dL) 155 H 140 H (75-99) mg/dL 01/24/19 Range/Units 11:11 RBC (4.30-5.90) m/uL Hgb (13.0-17.5) gm/dL Hct (39.0-53.0) % Neutrophils # (1.3-7.7) k/uL Lymphocytes # (1.0-4.8) k/uL POC Glucose (mg/dL) 121 H (75-99) mg/dL Assessment and Plan Plan: Assessment: 1 acute COPD exacerbation with secondary shortness of breath 2 acute on chronic hypoxic respiratory failure 3 severe COPD with an FEV1 of 39% baseline 4 coronary artery disease presents bypass surgery 5 left carotid artery stenosis 6 hypertension 7 hyperlipidemia 8 hypothyroidism 9 chronic back pain 10 2 separate episodes of A. fib RVR, self-limiting, patient had converted back to sinus rhythm 11 ileus, with abdominal distention, constipation, has resolved, and patient is passing flatus and bowel movements Plan: Patient is doing well, his breathing is stable, no shortness of breath, no chest pain, no cough or congestion, vital signs are stable, no fever or chills. his ileus has resolved, he is passing flatus. Her pulmonary perspective patient is stable for discharge home today with outpatient follow-up with Dr. Xie in the office in the 2 weeks I performed a history & physical examination of the patient and discussed their management with my nurse practitioner, Evonne Peters. I reviewed the nurse practitioner's note and agree with the documented findings and plan of care. Lung sounds are positive for bibasilar crackles. The findings and the impression was discussed with the patient. I attest to the documentation by the nurse practitioner. Time with Patient: Less than 30
== END 2019-01-24 15:10 | disposition home health service (06) | DRG 190 ==
LOC: EC 15:45 → 3NMEDONC 18:45
PROVIDERS: ADMIT Hospitalist; ATTEND Hospitalist
DX: J44.1 Chronic obstructive pulmonary disease with (acute) exacerbation (principal); J96.21 Acute and chronic respiratory failure with hypoxia; K56.7 Ileus, unspecified; E87.1 Hypo-osmolality and hyponatremia; J98.11 Atelectasis; D72.829 Elevated white blood cell count, unspecified; T38.0X5A Adverse effect of glucocorticoids and synthetic analogues, initial encounter; E03.9 Hypothyroidism, unspecified; E78.5 Hyperlipidemia, unspecified; F32.9 Major depressive disorder, single episode, unspecified; F41.9 Anxiety disorder, unspecified; G89.29 Other chronic pain; I11.0 Hypertensive heart disease with heart failure; I25.10 Atherosclerotic heart disease of native coronary artery without angina pectoris; I45.10 Unspecified right bundle-branch block; I48.0 Paroxysmal atrial fibrillation; I50.9 Heart failure, unspecified; I65.22 Occlusion and stenosis of left carotid artery; I73.9 Peripheral vascular disease, unspecified; J84.10 Pulmonary fibrosis, unspecified; K57.30 Diverticulosis of large intestine without perforation or abscess without bleeding; Z79.01 Long term (current) use of anticoagulants; Z79.51 Long term (current) use of inhaled steroids; Z79.82 Long term (current) use of aspirin; Z79.890 Hormone replacement therapy; Z79.899 Other long term (current) drug therapy; Z82.5 Family history of asthma and other chronic lower respiratory diseases; Z87.442 Personal history of urinary calculi; Z87.891 Personal history of nicotine dependence; Z95.1 Presence of aortocoronary bypass graft; Z95.5 Presence of coronary angioplasty implant and graft; Z99.81 Dependence on supplemental oxygen; Z98.49 Cataract extraction status, unspecified eye; Z96.1 Presence of intraocular lens; Z88.5 Allergy status to narcotic agent; Z88.8 Allergy status to other drugs, medicaments and biological substances; Z87.01 Personal history of pneumonia (recurrent); M19.90 Unspecified osteoarthritis, unspecified site
CPT/HCPCS: 36415; 71046; 74176; 80048; 80053; 80061; 83735; 83880; 84439; 84443; 84484; 85025; 85027; 85610; 85730; 87502; 93005; 93306; 94640; 94644; 94760; 96374; 99285

== ENCOUNTER 2020-08-04 00:37 | Inpatient (IN) | payer MEDICARE, OTHER ==
[2020-08-04] MEDS ORDERED: IPRATROPIUM-ALBUTEROL 3 ML NEB INHALATION PRN (01:48)
[2020-08-04] MEDS ORDERED: NALOXONE 0.4 MG/ML 1 ML VIAL IV PRN (01:49)
[2020-08-04] MEDS ORDERED: ALBUTEROL NEBULIZED 2.5 MG/3 ML INHALATION PRN (01:49)
[2020-08-04] MEDS ORDERED: ACETAMINOPHEN TAB 325 MG TAB PO PRN (01:49)
--- NOTE | 2020-08-04 01:54 | ED ---
General Adult HPI - General Chief complaint: Shortness of Breath Stated complaint: NATALIIA Time Seen by Provider: 08/04/20 00:39 Source: patient, EMS, RN notes reviewed, old records reviewed Mode of arrival: EMS Limitations: no limitations - History of Present Illness Initial comments: 80-year-old male transferred from outside facility with COPD exacerbation, acute hypoxic hypercapnic respiratory failure. Patient had presented with worsening dyspnea. He is a oxygen dependent COPD patient who had presented with an oxygen saturation the low 80s. Patient was found to be in hypoxic hypercapnic respiratory failure was placed on BiPAP and was transferred to this facility for further evaluation and treatment. He states that he does not have any chest p ain, no fever, he did have worsening cough and dyspnea. - Related Data Home Medications Medication Instructions Recorded Confirmed Aspirin EC [Ecotrin Low Dose] 81 mg PO DAILY 10/11/15 01/16/19 Atorvastatin [Lipitor] 40 mg PO HS 10/11/15 01/16/19 Levothyroxine Sodium [Synthroid] 50 mcg PO DAILY 10/11/15 01/16/19 Potassium Chloride ER [K-Dur 20] 20 meq PO DAILY 10/11/15 01/16/19 Tiotropium [place] [Spiriva 1 puff INHALATION RT-DAILY 10/11/15 01/16/19 Respimat] Budesonide/Formoterol Fumarate 2 puff INHALATION RT-BID 03/26/18 01/16/19 [Symbicort 160-4.5 Mcg Inhaler] Nitroglycerin 0.4 mg SL Q5M PRN 03/26/18 01/16/19 Pantoprazole [Protonix] 40 mg PO DAILY 03/26/18 01/16/19 Tamsulosin HCl [Flomax] 0.4 mg PO DAILY 03/26/18 01/16/19 Triamcinolone 0.1% Cream [Kenalog 1 applic TOPICAL BID 03/26/18 01/16/19 0.1% Cream] rOPINIRole HCL [Requip] 1 mg PO QAM 03/26/18 01/17/19 HYDROcodone/APAP 10-325MG [[place] 1 tab PO TID PRN 10/07/18 01/16/19 10-325] Magnesium Oxide 400 mg PO HS 10/07/18 01/16/19 Escitalopram Oxalate [Lexapro] 10 mg PO DAILY 10/08/18 01/16/19 Ketoconazole [Ketoconazole 2%] 1 applic TOPICAL DAILY 10/08/18 01/16/19 Albuterol Inhaler (Mhu) [Ventolin 2 puff INHALATION RT-Q6H PRN 01/16/19 01/16/19 Hfa Inhaler (Mhu)] Furosemide [Lasix] 20 mg PO DAILY 01/16/19 01/16/19 Nystatin 100,000Unit/gm Cream 1 applic TOPICAL BID 01/16/19 01/16/19 [Mycostatin Cream] Previous Rx's Medication Instructions Recorded Albuterol Nebulized [Ventolin 2.5 mg INHALATION RT-TID #0 10/11/18 Nebulized] Amoxic-Pot Clav 875-125Mg 1 each PO Q12HR #6 tab 01/24/19 [Augmentin 875-125] Apixaban [Eliquis] 5 mg PO BID #60 tab 01/24/19 Sennosides [Senokot] 8.6 mg PO DAILY PRN #15 tab 01/24/19 Verapamil Sr [Isoptin Sr] 180 mg PO DAILY #30 tablet.er 01/24/19 predniSONE See Taper PO DIRECTED #22 tab 01/24/19 Allergies Allergy/AdvReac Type Severity Reaction Status Date / Time morphine Allergy Unknown Verified 01/16/19 16:06 iodine AdvReac Rapid Verified 01/16/19 16:06 Heart Rate Review of Systems ROS Statement: Those systems with pertinent positive or pertinent negative responses have been documented in the HPI. ROS Other: All systems not noted in ROS Statement are negative. Past Medical History Past Medical History: Coronary Artery Disease (CAD), Chest Pain / Angina, COPD, Hyperlipidemia, Hypertension, Osteoarthritis (OA), Pneumonia, Thyroid Disorder Additional Past Medical History / Comment(s): COPD, coronary artery disease with previous quadruple bypass surgery, hypertension, hyperlipidemia, hypothyroidism, chronic back pain, nephrolithiasis, chronic arthritic pain involving the back and shoulder, History of Any Multi-Drug Resistant Organisms: None Reported Past Surgical History: Coronary Bypass/CABG, Heart Catheterization Additional Past Surgical History / Comment(s): Coronary artery bypass surgery and the patient had four-vessel bypass, back surgery, ORIF of the left arm/hand area and cataract surgery with intraocular lens placement Past Anesthesia/Blood Transfusion Reactions: Previous Problems w/ Anesthesia Additional Past Anesthesia/Blood Transfusion Reaction / Comment(s): DIFFICULTY WAKING UP Past Psychological History: No Psychological Hx Reported Smoking Status: Unknown if ever smoked Past Alcohol Use History: Occasional Past Drug Use History: None Reported - Past Family History Father History Unknown: Yes Family Medical History: No Reported History Additional Family Medical History / Comment(s): Vang Mother Family Medical History: Asthma, COPD General Exam Limitations: no limitations General appearance: alert, in distress (Mild respiratory) Head exam: Present: atraumatic, normocephalic Eye exam: Present: normal appearance, PERRL ENT exam: Present: normal exam Neck exam: Present: normal inspection. Absent: tenderness, meningismus Respiratory exam: Present: respiratory distress (mild), wheezes, decreased breath sounds. Absent: accessory muscle use Cardiovascular Exam: Present: regular rate, normal rhythm GI/Abdominal exam: Present: soft. Absent: distended, tenderness, guarding Extremities exam: Present: pedal edema (Trace bilateral) Neurological exam: Present: alert, oriented X3. Absent: motor sensory deficit Psychiatric exam: Present: normal affect, normal mood Skin exam: Present: warm, dry, intact. Absent: cyanosis, diaphoretic Course Vital Signs 08/04/20 08/04/20 00:38 00:46 Temperature 97.2 F L Pulse Rate 89 87 Respiratory 20 19 Rate Blood Pressure 144/89 O2 Sat by Pulse 99 98 Oximetry EKG Findings - EKG Comments: EKG Findings:: EKG: Normal sinus rhythm, right bundle branch block, left anterior fascicular block, no ST segment elevation rate of 86, OR interval 126, QRS duration 126, QTC 478 Medical Decision Making - Medical Decision Making 80-year-old male percent thing from outside hospital with hypoxic hypercapnic respiratory failure secondary to COPD. He was noted to have an initial ABG showing pH is 7.15 and a CO2 of 107. He had a white blood cell count 13.8, stable hemoglobin, normal white lites, normal kidney function. He been given albuterol, Atrovent, steroids, antibiotics and was placed on BiPAP. His chest x-ray showed questionable CHF with no focal pneumonia. Upon arrival he is sat urating well on BiPAP, he has very mild respiratory distress but is overall quite comfortable. He will be continued on BiPAP, repeat ABG has been ordered. He has been admitted to internal medicine with pulmonology on consult. Repeat laboratory testing will be obtained in the morning. Critical Care Time Critical Care Time: Yes Total Critical Care Time: 30 Disposition Clinical Impression: COPD (chronic obstructive pulmonary disease), Acute respiratory failure with hypoxia and hypercapnia Disposition: ADMITTED IP TO THIS HOSP Condition: Stable Is patient prescribed a controlled substance at d/c from ED?: No Referrals: Scottie Minor MD [Primary Care Provider] - 1-2 days Decision to Admit Reason: Admit from EC Decision Date: 08/04/20 Decision Time: 01:54
[2020-08-04 02:41] LABS: ABG Base Excess 9.9 mmol/L; ABG HCO3 35 mmol/L (21-25); ABG Oxygen Saturation 95.8 % (94-97); ABG PCO2 56 mmHg (35-45); ABG PO2 78 mmHg (83-108); ABG TCO2 36 mmol/L (19-24); Allen Test Performed? Yes
[2020-08-04] MEDS: methylPREDNISolone SOD SUCCI 125 MG/2 ML VIAL IV SCH ×2 (06:46→11:12)
[2020-08-04] MEDS: IPRATROPIUM-ALBUTEROL 3 ML NEB INHALATION SCH ×4 (08:10→21:14)
[2020-08-04] MEDS: AMOXIC-POT CLAV 875-125MG 1 EACH TAB PO SCH ×2 (11:12→20:43)
[2020-08-04] MEDS ORDERED: HYDROcodone/APAP 10-325MG 1 EACH TAB PO PRN (11:34)
[2020-08-04] MEDS ORDERED: NITROGLYCERIN SL TABS 0.4 MG TAB SUBLINGUAL PRN (11:34)
[2020-08-04] MEDS ORDERED: FLUTICASONE 50MCG/SPRAY NASAL 16GM EA NOSTRIL PRN (11:34)
[2020-08-04] MEDS ORDERED: ALPRAZolam 0.25 MG TAB PO PRN (11:34)
[2020-08-04] MEDS: CLOPIDOGREL 75 MG TAB PO SCH (12:00)
[2020-08-04] MEDS: TAMSULOSIN 0.4 MG CAP.ER.24H PO SCH (13:36)
[2020-08-04] MEDS: VERAPAMIL SR 120 MG TABLET.ER PO SCH (13:37)
[2020-08-04 15:22] LABS: African American GFR (CKD) 63 (>60 ml/min/1.73 sqM); Anion Gap 8 mmol/L; Blood Urea Nitrogen 23 mg/dL (9-20); Calcium 8.9 mg/dL (8.4-10.2); Carbon Dioxide 31 mmol/L (22-30); Chloride 88 mmol/L (98-107); Glucose 170 mg/dL (74-99); Non-African American GFR(CKD) 54 (>60 ml/min/1.73 sqM); Potassium 4.4 mmol/L (3.5-5.1); Sodium 127 mmol/L (137-145)
--- NOTE | 2020-08-04 15:48 | P.HPIM ---
History of Present Illness 80-year-old pleasant male was transferred from [facility] after he presented with hypercapnic respiratory failure with pCO2 comfortable 100 and the respiratory acidosis. Patient was started on BiPAP patient is feeling better now patient the received IV steroids with significant improvement in his respiratory status patient is releases to reduce of oxygen patient quit smoking years ago patient on is presently on 2 L saturating well with good air entry into bilateral lung estrada we'll cut down the systemic steroids. Patient was comparing of cough unable to bring up anything. Covid 19 is negative. Review of Systems REVIEW OF SYSTEMS: CONSTITUTIONAL: No fever, no malaise, no fatigue. HEENT: No recent visual problems or hearing problems. Denied any sore throat. CARDIOVASCULAR: No chest pain, orthopnea, PND, no palpitations, no syncope. PULMONARY: , no hemoptysis. GASTROINTESTINAL: No diarrhea, no nausea, no vomiting, no abdominal pain. NEUROLOGICAL: No headaches, no weakness, no numbness. HEMATOLOGICAL: Denies any bleeding or petechiae. GENITOURINARY: Denies any burning micturition, frequency, or urgency. MUSCULOSKELETAL/RHEUMATOLOGICAL: Denies any joint pain, swelling, or any muscle pain. ENDOCRINE: Denies any polyuria or polydipsia. The rest of the 14-point review of systems is negative. Past Medical History Past Medical History: Coronary Artery Disease (CAD), Chest Pain / Angina, COPD, Hyperlipidemia, Hypertension, Osteoarthritis (OA), Pneumonia, Thyroid Disorder Additional Past Medical History / Comment(s): COPD, coronary artery disease with previous quadruple bypass surgery, hypertension, hyperlipidemia, hypothyroidism, chronic back pain, nephrolithiasis, chronic arthritic pain involving the back and shoulder, History of Any Multi-Drug Resistant Organisms: None Reported Past Surgical History: Coronary Bypass/CABG, Heart Catheterization Additional Past Surgical History / Comment(s): Coronary artery bypass surgery and the patient had four-vessel bypass, back surgery, ORIF of the left arm/hand area and cataract surgery with intraocular lens placement Past Anesthesia/Blood Transfusion Reactions: Previous Problems w/ Anesthesia Additional Past Anesthesia/Blood Transfusion Reaction / Comment(s): DIFFICULTY WAKING UP Past Psychological History: No Psychological Hx Reported Smoking Status: Unknown if ever smoked Past Alcohol Use History: Occasional Past Drug Use History: None Reported - Past Family History Father History Unknown: Yes Family Medical History: No Reported History Additional Family Medical History / Comment(s): Vang Mother Family Medical History: Asthma, COPD Medications and Allergies Home Medications Medication Instructions Recorded Confirmed Type Levothyroxine Sodium [Synthroid] 50 mcg PO DAILY 10/11/15 08/04/20 History Potassium Chloride ER [K-Dur 20] 20 meq PO DAILY 10/11/15 08/04/20 History Tiotropium [place] [Spiriva 1 puff INHALATION RT-DAILY 10/11/15 08/04/20 History Respimat] Nitroglycerin 0.4 mg SL Q5M PRN 03/26/18 08/04/20 History Pantoprazole [Protonix] 40 mg PO DAILY 03/26/18 08/04/20 History Tamsulosin HCl [Flomax] 0.4 mg PO DAILY 03/26/18 08/04/20 History Triamcinolone 0.1% Cream [Kenalog 1 applic TOPICAL BID 03/26/18 08/04/20 History 0.1% Cream] rOPINIRole HCL [Requip] 1 mg PO HS 03/26/18 08/04/20 History HYDROcodone/APAP 10-325MG [[place] 1 tab PO TID PRN 10/07/18 08/04/20 History 10-325] Escitalopram Oxalate [Lexapro] 10 mg PO DAILY 10/08/18 08/04/20 History Ketoconazole [Ketoconazole 2%] 1 applic TOPICAL DAILY 10/08/18 08/04/20 History Furosemide [Lasix] 20 mg PO BID 01/16/19 08/04/20 History ALPRAZolam [Xanax] 0.25 mg PO BID PRN 08/04/20 08/04/20 History Albuterol Inhaler [Ventolin Hfa 2 puff INHALATION RT-QID PRN 08/04/20 08/04/20 History Inhaler] Albuterol Nebulized [Ventolin 2.5 mg INHALATION RT-QID PRN 08/04/20 08/04/20 History Nebulized] Clopidogrel Bisulfate [Plavix] 75 mg PO DAILY 08/04/20 08/04/20 History Fluticasone Nasal [place] [Flonase 1 spray EA NOSTRIL DAILY PRN 08/04/20 08/04/20 History Nasal [place]] Lactose-Reduced Food [Boost] 237 ml PO BID 11/14/20 11/14/20 History Umeclidinium Brm/Vilanterol Tr 1 puff INHALATION RT-DAILY 08/04/20 08/04/20 History [Anoro Ellipta 62.5-25 Mcg INH] Verapamil HCl [Verapamil ER] 120 mg PO DAILY 08/04/20 08/04/20 History predniSONE 5 mg PO DAILY 08/04/20 08/04/20 History Allergies Allergy/AdvReac Type Severity Reaction Status Date / Time morphine Allergy Unknown Verified 08/04/20 09:19 iodine AdvReac Rapid Verified 08/04/20 09:19 Heart Rate Physical Exam Vitals: Vital Signs Temp Pulse Resp BP Pulse Ox 08/04/20 13:59 98.3 F 90 20 139/78 97 08/04/20 13:37 92 20 152/80 97 08/04/20 13:05 96 08/04/20 11:23 86 20 142/76 98 08/04/20 08:38 86 22 145/86 98 08/04/20 08:35 95 08/04/20 08:12 86 08/04/20 07:47 22 08/04/20 07:15 97.6 F 80 22 139/86 98 08/04/20 07:05 78 18 145/81 98 08/04/20 02:20 88 16 138/83 97 08/04/20 00:46 87 19 98 08/04/20 00:38 97.2 F L 89 20 144/89 99 Intake and Output 08/04/20 08/04/20 08/04/20 06:59 14:59 22:59 Other: Weight 72.575 kg PHYSICAL EXAMINATION: GENERAL: The patient is alert and oriented x3, not in any acute distress. Well developed, well nourished. HEENT: Pupils are round and equally reacting to light. EOMI. No scleral icterus. No conjunctival pallor. Normocephalic, atraumatic. No pharyngeal erythema. No thyromegaly. CARDIOVASCULAR: S1 and S2 present. No murmurs, rubs, or gallops. PULMONARY: mildly decreased air entry into bilateral lung estrada with mild expiratory wheezing ABDOMEN: Soft, nontender, nondistended, normoactive bowel sounds. No palpable organomegaly. MUSCULOSKELETAL: No joint swelling or deformity. EXTREMITIES: No cyanosis, clubbing, or pedal edema. NEUROLOGICAL: Gross neurological examination did not reveal any focal deficits. SKIN: No rashes. Results CBC & Chem 7: 08/04/20 14:41 Labs: Abnormal Lab Results - Last 24 Hours (Table) 08/04/20 08/04/20 Range/Units 02:35 14:41 ABG pCO2 56 H (35-45) mmHg ABG pO2 78 L (83-108) mmHg ABG HCO3 35 H (21-25) mmol/L ABG Total CO2 36 H (19-24) mmol/L Sodium 127 L (137-145) mmol/L Chloride 88 L (98-107) mmol/L Carbon Dioxide 31 H (22-30) mmol/L BUN 23 H (9-20) mg/dL Glucose 170 H (74-99) mg/dL Assessment and Plan Plan: -acute hypercapnic respiratory failure: Significant COPD exacerbation patient has significant improvement in his respiratory status and pCO2 now patient is presently on nasal cannula oxygenpatient patient the has significant improvement in his respiratory status will decrease the dose of IV steroids. -Respiratory acidosis: Secondary to CO2 retention and hypercapnia -Chronic hypercapnic respiratory failure. -hyponatremia: Seconded to diuretics which will be held -Acute renal failure secondary to excessive diuretic therapy which will be held coronary artery diseasewith history of CABG in the past -Hyperlipidemia -Hypertension hypothyroidism -DVT prophylaxis with Lovenox GI prophylaxis with Protonix
[2020-08-04] MEDS ORDERED: FUROSEMIDE 20 MG TAB PO SCH (16:00)
[2020-08-04] MEDS: methylPREDNISolone SOD SUCCI 40 MG/ML 1 ML VIAL IV SCH (20:43)
[2020-08-04] MEDS ORDERED: LACTOSE REDUCED FOOD PO SCH (21:00)
[2020-08-04] MEDS: BUDESONIDE 1 MG/2 ML NEBU INHALATION SCH (21:20)
[2020-08-04] MEDS: FORMOTEROL FUMARATE 20 MCG/2 ML NEBU INHALATION SCH (21:20)
[2020-08-04] MEDS: TRIAMCINOLONE 0.1% CREAM 80 GM TUBE TOPICAL SCH (22:51)
[2020-08-05] MEDS: LEVOTHYROXINE 50 MCG TAB PO SCH (05:18)
[2020-08-05 06:02] LABS: Basophils % (A) 0 %; Eosinophils % (A) 0 %; HCT 35.9 % (39.0-53.0); HGB 11.8 gm/dL (13.0-17.5); Lymphocytes # (A) 0.6 k/uL (1.0-4.8); Lymphocytes % (A) 4 %; MCH 30.8 pg (25.0-35.0); MCHC 32.8 g/dL (31.0-37.0); MCV 93.8 fL (80.0-100.0); Mean Platelet Volume 6.7; Monocytes # (A) 0.7 k/uL (0-1.0); Monocytes % (A) 5 %; Neutrophils # (A) 14.2 k/uL (1.3-7.7); Neutrophils % (A) 91 %; Platelet Count 250 k/uL (150-450); RBC 3.83 m/uL (4.30-5.90); RDW 13.1 % (11.5-15.5); WBC 15.6 k/uL (3.8-10.6)
[2020-08-05] MEDS ORDERED: NON FORMULARY DRUG (Umeclidinium Brm/Vilanterol Tr [Anoro Ellipta 62.5-25 Mcg Inh] 1 EACH INHALATION SCH (08:00)
[2020-08-05] MEDS: BUDESONIDE 1 MG/2 ML NEBU INHALATION SCH ×2 (08:28→20:20)
[2020-08-05] MEDS: FORMOTEROL FUMARATE 20 MCG/2 ML NEBU INHALATION SCH ×2 (08:28→20:20)
[2020-08-05] MEDS: IPRATROPIUM-ALBUTEROL 3 ML NEB INHALATION SCH ×4 (08:28→20:23)
[2020-08-05] MEDS: TAMSULOSIN 0.4 MG CAP.ER.24H PO SCH (08:29)
[2020-08-05] MEDS: PANTOPRAZOLE 40 MG TABLET PO SCH (08:29)
[2020-08-05] MEDS: AMOXIC-POT CLAV 875-125MG 1 EACH TAB PO SCH ×2 (08:29→20:10)
[2020-08-05] MEDS: ESCITALOPRAM 10 MG TAB PO SCH (08:29)
[2020-08-05] MEDS: CLOPIDOGREL 75 MG TAB PO SCH (08:29)
[2020-08-05] MEDS: methylPREDNISolone SOD SUCCI 40 MG/ML 1 ML VIAL IV SCH ×2 (08:29→20:10)
[2020-08-05] MEDS: VERAPAMIL SR 120 MG TABLET.ER PO SCH (08:29)
[2020-08-05] MEDS: TRIAMCINOLONE 0.1% CREAM 80 GM TUBE TOPICAL SCH ×2 (08:31→21:29)
[2020-08-05] MEDS: CLOTRIMAZOLE 1% CREAM 15 GM TUBE TOPICAL SCH (09:24)
[2020-08-05 10:08] LABS: African American GFR (CKD) 73.1 (60.0-200.0); Albumin 3.6 g/dL (3.80-4.90); Albumin/Globulin Ratio 1.71 (1.60-3.17); BUN/Creat Ratio 27.27 Ratio (12.00-20.00); Globulin 2.1 g/dL (1.6-3.3); Magnesium 2.2 mg/dL (1.5-2.4); Non-African American GFR(CKD) 63.1 (60.0-200.0); Potassium 4.3 mmol/L (3.5-5.5); Total Bilirubin 0.3 mg/dL (0.3-1.2); Total Protein 5.7 g/dL (6.2-8.2)
--- NOTE | 2020-08-05 10:48 | CONS ---
CONSULTATION PULMONARY/CRITICAL CARE CONSULTATION: DATE OF SERVICE: August 04, 2020 REASON FOR CONSULTATION: Shortness of breath. HISTORY OF PRESENT ILLNESS: This is an 80-year-old gentleman whom we had seen in the past. He has a history of long-standing COPD with acute hypoxemic and hypercapnic respiratory failure. He apparently presented to the emergency room in [place]. He apparently sees a Dr. Minor there. Anyway, he came in with a complaints of increasing shortness of breath, chest congestion, cough, wheezing and slight phlegm production. His saturations there apparently on oxygen were only in the low 80s. For that reason, he was transferred down. He was placed on BiPAP and seen here in the emergency department. The patient appears to be relatively comfortable at this time. He is on 2 L. He is not receiving any IV fluids. He is on 2 L at home. He states that he is feeling a bit better. CURRENT HOME MEDICATIONS: Include aspirin, Lipitor, Synthroid, potassium chloride, Spiriva, Symbicort, nitroglycerin tablets, Protonix Flomax, Kenalog cream, Requip, [place], magnesium oxide, Lexapro, ketoconazole, albuterol inhaler, Lasix and nystatin. Other medications are listed include prednisone with a taper, verapamil, Senokot, Eliquis, Augmentin, and albuterol updrafts. ALLERGIES: MORPHINE AND IODINE. MEDICAL HISTORY: CAD, angina pectoris, severe oxygen-dependent COPD, chronic hypoxemic respiratory failure, hyperlipidemia, hypertension, DJD, pneumonia, and hypothyroidism. Other medical problems include quadruple bypass surgery, hypothyroidism, chronic back pain, kidney stones, and diffuse arthritis. SURGICAL HISTORY: Includes heart catheterization, bypass grafting, back surgery, ORIF left arm, cataract surgery, and lens implants. SOCIAL HISTORY: Positive for previous heavy tobacco use. Apparently does not smoke currently. Drinks alcohol occasionally. No illicit drug use. FAMILY HISTORY: Positive for father with history of west and a mother with a history of asthma and COPD. REVIEW OF SYSTEMS: CONSTITUTIONAL negative. NEUROLOGIC negative. HEENT negative. CARDIOVASCULAR negative. PULMONARY: Shortness of breath, chest tightness, wheezing, cough, chest congestion and phlegm production. GI negative. negative. RHEUMATOLOGIC negative. IMMUNOLOGIC negative. ENDOCRINOLOGIC negative. DERMATOLOGIC negative. PHYSICAL EXAMINATION: VITAL SIGNS: Current vital signs are reviewed. Temperature is 97.6, heart rate is 86, respiratory rate 22. Blood pressure 139/86. Mean 103. 2 L saturation 98%. GENERAL: Appears in no acute distress. HEENT: Examination is grossly unremarkable. NECK: Supple. Full range of motion. No adenopathy. Neck veins are flat. CARDIOVASCULAR: Examination reveals regular rhythm and rate. Heart rate 80 beats per minute. S1, S2 normal. LUNGS: Reveal diminished breath sounds. A few scattered rhonchi. No wheezes or crackles. Breath sounds equal bilaterally. ABDOMEN: Soft. EXTREMITIES are intact. There is tenderness in the left lower extremity on palpation. Minimal edema. SKIN: Without rash. NEUROLOGIC: Examination is brief but nonfocal. LABS: At this institution include a blood gas showing a pO2 of 78, pCO2 of 56 and a pH of 7.4. This is likely his baseline blood gas. He is on 30% when his blood gas was done. No other labs are noted. No chest x-ray at this institution. Medications are reviewed. Currently, he is on Tylenol, albuterol DuoNeb, Solu-Medrol, Narcan, and Requip. ASSESSMENT: 1. Chronic obstructive pulmonary disease exacerbation, probably complicated by purulent tracheobronchitis. 2. Coronary artery disease, with previous 4 vessel bypass grafting. 3. Previous history of heavy tobacco use. 4. Coronary artery disease. 5. Angina pectoris. 6. Hyperlipidemia. 7. Essential hypertension. 8. Degenerative joint disease. 9. Hypothyroidism. 10.Chronic back pain. 11.History of kidney stones. PLAN: The patient will be given DuoNeb q.i.d. and p.r.n. We will also add Pulmicort 1 mg with formoterol 20 mcg twice a day and Solu-Medrol 60 mg q.6h. We will give an oral antibiotic. Additional recommendations and suggestions are forthcoming. We will continue to follow. Prognosis is guarded. MMODL / IJN: [id number] /
--- NOTE | 2020-08-05 10:54 | P.PN ---
Subjective 80-year-old male was admitted for COPD exacerbation and hypercapnic respiratory failure patient is on 2 L of oxygen saturating well patient is hyponatremic secondary to diuretics I held them marginally improved sodium I'll start him on IV fluids reassess him tomorrow possibility of discharge tomorrow. Patient covd 19 is negative Constitutional: Denied any fatigue denied any fever. Cardio vascular: denied any chest pain, palpitations Gastrointestinal denied any nausea vomiting Pulmonary: Denied any shortness of breath cough Neurologic denied any new focal deficits All inpatient medications were reviewed and appropriate changes in these med ications as dictated in the interval history and assessment and plan. Objective - Vital Signs Vital signs: Vital Signs Temp 98.2 F 08/05/20 05:15 Pulse 104 H 08/05/20 08:57 Resp 20 08/05/20 05:15 BP 132/68 08/05/20 05:15 Pulse Ox 98 08/05/20 05:15 Intake & Output 08/04/20 08/05/20 08/05/20 18:59 06:59 18:59 Intake Total 1180 Output Total 275 Balance 905 Weight 72.575 kg Intake: Oral 1180 Output: Urine 275 Other: Voiding Method Toilet Urinal # Voids 2 - Exam PHYSICAL EXAMINATION: GENERAL: The patient is alert and oriented x3, not in any acute distress. Well developed, well nourished. HEENT: Pupils are round and equally reacting to light. EOMI. No scleral icterus. No conjunctival pallor. Normocephalic, atraumatic. No pharyngeal erythema. No thyromegaly. CARDIOVASCULAR: S1 and S2 present. No murmurs, rubs, or gallops. Mildly Diminished air entry into bilateral lung estrada PULMONARY: Chest is clear to auscultation, no wheezing or crackles. ABDOMEN: Soft, nontender, nondistended, normoactive bowel sounds. No palpable organomegaly. MUSCULOSKELETAL: No joint swelling or deformity. EXTREMITIES: No cyanosis, clubbing, or pedal edema. NEUROLOGICAL: Gross neurological examination did not reveal any focal deficits. SKIN: No rashes. - Labs CBC & Chem 7: 08/05/20 05:06 08/05/20 05:06 Labs: Abnormal Lab Results - Last 24 Hours (Table) 08/04/20 08/05/20 08/05/20 Range/Units 14:41 05:06 05:06 WBC 15.6 H (3.8-10.6) k/uL RBC 3.83 L (4.30-5.90) m/uL Hgb 11.8 L (13.0-17.5) gm/dL Hct 35.9 L (39.0-53.0) % Neutrophils # 14.2 H (1.3-7.7) k/uL Lymphocytes # 0.6 L (1.0-4.8) k/uL Sodium 127 L 128 L (137-145) mmol/L Chloride 88 L 90 L (98-107) mmol/L Carbon Dioxide 31 H (22-30) mmol/L BUN 23 H 30.0 H (9-20) mg/dL BUN/Creatinine Ratio 27.27 H (12.00-20.00) Ratio Glucose 170 H 167 H (74-99) mg/dL Total Protein 5.7 L (6.2-8.2) g/dL Albumin 3.60 L (3.80-4.90) g/dL Assessment and Plan Plan: -acute hypercapnic respiratory failure: Significant COPD exacerbation patient has significant improvement in his respiratory status and pCO2 now patient is presently on nasal cannula oxygenpatient patient the has significant improvement in his respiratory status will decrease the dose of IV steroids. -Respiratory acidosis: Secondary to CO2 retention and hypercapnia -Chronic hypercapnic respiratory failure. -hyponatremia: Seconded to diuretics which will be held IV fluids as mentioned above. -Acute renal failure secondary to excessive diuretic therapy which will be held coronary artery diseasewith history of CABG in the past -Hyperlipidemia -Hypertension hypothyroidism -DVT prophylaxis with Lovenox GI prophylaxis with Protonix
[2020-08-05] MEDS: SODIUM CHLORIDE 0.9% 1,000 ML IV SCH (12:54)
--- NOTE | 2020-08-05 22:52 | PN ---
PROGRESS NOTE PULMONARY/CRITICAL CARE PROGRESS NOTE: DATE OF SERVICE: August 05, 2020 This is a patient who was seen yesterday in consultation. He is an 80-year-old gentleman with a history of long-standing COPD as well as hypoxemic hypercapnic respiratory failure. He initially presented to the emergency department in [place]. He was shipped down to [facility]. The patient was complaining of shortness of breath. He also had cough, wheezing, and chest congestion. He was placed on BiPAP and seen here in the emergency department. Currently, he is doing much better. He is on a couple liters. Not receiving any IV fluids. He is hoping to be discharged in the next 24 to 48 hours. PHYSICAL EXAMINATION: VITAL SIGNS: Current vital signs reveal temperature 97.9, heart rate 74, respiratory rate 18, blood pressure 135/69, mean 91 and 2 L saturation 97%. GENERAL: Appears in no acute distress. HEENT: Examination is grossly unremarkable. NECK: Supple. Full range of motion. No adenopathy. Neck veins are flat. CARDIOVASCULAR: Examination reveals regular rhythm and rate. S1, S2 normal. No S3, S4, or murmur. LUNGS: Reveal diminished breath sounds. A few scattered rhonchi. No wheezes or crackles. ABDOMEN: Soft. Bowel sounds are heard. EXTREMITIES: Are intact. No cyanosis, clubbing, or edema. SKIN: Without rash. NEUROLOGIC: Examination is brief but nonfocal. LABS: White count 15.6, hemoglobin 11.8, hematocrit 35.9, platelet count normal. Sodium 128, potassium 4.3, chloride 90, CO2 of 30. Anion gap is 8. BUN and creatinine were 30 and 1.1. His COVID testing was negative. Microbiology is negative. Chest x-ray from the outside hospital was reviewed. MEDICATIONS: Medications are reviewed. He is currently from the pulmonary standpoint on Augmentin, Pulmicort, formoterol, Flonase nasal spray, DuoNeb and Solu-Medrol. ASSESSMENT: 1. Chronic obstructive pulmonary disease exacerbation complicated by purulent tracheobronchitis, improved. 2. Coronary artery disease, with previous 4-vessel bypass grafting, stable. 3. Previous history of heavy tobacco use. 4. Coronary artery disease. 5. Angina pectoris. 6. Hyperlipidemia. 7. Essential hypertension. 8. Degenerative joint disease. 9. Hypothyroidism. 10.Chronic back pain. 11.History of kidney stones. PLAN: The patient is on appropriate medications including DuoNeb, Pulmicort, formoterol, and Solu-Medrol. He is also on Augmentin. Hopeful discharge in next 24 to 48 hours. No additional recommendations are made. Prognosis is guarded. MMODL / IJN: [id number] /
[2020-08-06] MEDS: SODIUM CHLORIDE 0.9% 1,000 ML IV SCH (01:25)
[2020-08-06] MEDS: LEVOTHYROXINE 50 MCG TAB PO SCH (05:43)
[2020-08-06] MEDS: AMOXIC-POT CLAV 875-125MG 1 EACH TAB PO SCH (08:37)
[2020-08-06] MEDS: TAMSULOSIN 0.4 MG CAP.ER.24H PO SCH (08:37)
[2020-08-06] MEDS: VERAPAMIL SR 120 MG TABLET.ER PO SCH (08:37)
[2020-08-06] MEDS: ESCITALOPRAM 10 MG TAB PO SCH (08:37)
[2020-08-06] MEDS: CLOPIDOGREL 75 MG TAB PO SCH (08:37)
[2020-08-06] MEDS: PANTOPRAZOLE 40 MG TABLET PO SCH (08:37)
[2020-08-06] MEDS: methylPREDNISolone SOD SUCCI 40 MG/ML 1 ML VIAL IV SCH (08:37)
[2020-08-06] MEDS: FORMOTEROL FUMARATE 20 MCG/2 ML NEBU INHALATION SCH (09:07)
[2020-08-06] MEDS: BUDESONIDE 1 MG/2 ML NEBU INHALATION SCH (09:08)
[2020-08-06] MEDS: IPRATROPIUM-ALBUTEROL 3 ML NEB INHALATION SCH ×2 (09:08→11:55)
[2020-08-06 09:32] LABS: Anion Gap 7.2 mmol/L (4.00-12.00); Calcium 9.1 mg/dL (8.7-10.3); Carbon Dioxide 30.8 mmol/L (21.6-31.8); Non-African American GFR(CKD) 70.8 (60.0-200.0); Potassium 4.8 mmol/L (3.5-5.5)
[2020-08-06] MEDS: CLOTRIMAZOLE 1% CREAM 15 GM TUBE TOPICAL SCH (11:45)
[2020-08-06] MEDS: TRIAMCINOLONE 0.1% CREAM 80 GM TUBE TOPICAL SCH (11:46)
[2020-08-06 12:48] VITALS: BP 140/63; PULSE 83; RESP 18; TEMP 98
--- NOTE | 2020-08-06 14:30 | P.PN ---
Subjective Progress Note Date: 08/06/20 80-year-old male patient patient was hospitalized for an acute COPD exacerbation. Feeling better. Less short of breath. He doesn't negative for coronary COVID19. No chest pain. No sputum production. No hemoptysis. No pleurisy. It was discharged home on a prednisone burst taper in addition to oxygen and his routine bronchodilators. Objective - Vital Signs Vital signs: Vital Signs Temp 98.0 F 08/06/20 12:47 Pulse 83 08/06/20 12:47 Resp 18 08/06/20 12:47 BP 140/63 08/06/20 12:47 Pulse Ox 96 08/06/20 12:47 Intake & Output 08/05/20 08/06/20 08/06/20 18:59 06:59 18:59 Output Total 600 725 Balance -600 -725 Output: Urine 600 725 Other: Voiding Method Toilet Toilet Urinal Urinal - Exam GENERAL: The patient is alert and oriented x3, not in any acute distress. Well developed, well nourished. HEENT: Pupils are round and equally reacting to light. EOMI. No scleral icterus. No conjunctival pallor. Normocephalic, atraumatic. No pharyngeal erythema. No thyromegaly. CARDIOVASCULAR: S1 and S2 present. No murmurs, rubs, or gallops. Mildly Diminished air entry into bilateral lung estrada PULMONARY: Chest is clear to auscultation, no wheezing or crackles. ABDOMEN: Soft, nontender, nondistended, normoactive bowel sounds. No palpable organomegaly. MUSCULOSKELETAL: No joint swelling or deformity. EXTREMITIES: No cyanosis, clubbing, or pedal edema. NEUROLOGICAL: Gross neurological examination did not reveal any focal deficits. SKIN: No rashes. - Labs CBC & Chem 7: 08/05/20 05:06 08/06/20 05:00 Labs: Abnormal Lab Results - Last 24 Hours (Table) 08/06/20 Range/Units 05:00 Sodium 131 L (135-145) mmol/L Chloride 93 L (96-109) mmol/L BUN 29.0 H (9.0-27.0) mg/dL BUN/Creatinine Ratio 29.00 H (12.00-20.00) Ratio Glucose 141 H (70-110) mg/dL Assessment and Plan Plan: 1 acute COPD exacerbation, recovered 2 chronic hypoxic and hypercapnic respiratory failure 3 acute kidney injury, recovered 4 hypertension 5 hyperlipidemia 6 hypothyroidism Plan This is a patient home on a prednisone burst taper, Anoro one inhalation a day, Ventolin rescue inhaler albuterol just when necessary, course of Augmentin, oxygen therapy follow-up in the office.
--- NOTE | 2020-08-06 15:58 | P.DS ---
Providers Date of admission: 08/04/20 01:48 Expected date of discharge: 08/06/20 Attending physician: Della Eckert Consults: 08/04/20 01:48 Consult Physician Routine Consulting Provider: Anh Christopher Consult Reason/Comments: COPD Do you want consulting provider notified?: Yes Primary care physician: Scottie Minor [facility] Course: Final diagnosis -acute hypercapnic respiratory failure: Significant COPD exacerbation -Respiratory acidosis: Secondary to CO2 retention and hypercapnia -Chronic hypercapnic respiratory failure. -hyponatremia: Secondary to diuretics -Acute renal failure secondary to excessive diuretic therapy -coronary artery disease with history of CABG in the past -Hyperlipidemia -Hypertension -hypothyroidism -DVT prophylaxis -GI prophylaxis Discharge disposition Patient is being discharged in a stable condition with guarded prognosis to home. Patient will continue with the home care in the outpatient setting. Patient will follow-up with Dr. Scottie Minor in the outpatient setting upon discharge. Patient is to continue with oral antibiotics form of Augmentin twice daily for the next 5 days to complete the course. he will also continue on a prednisone taper in the outpatient setting. Total time taken is greater than 35 minutes. History of present illness This is a 80-year-old male who was recently admitted with COPD exacerbation and hypercapnic respiratory failure along with hyponatremia and was being closely monitored. Patient was seen and evaluated by pulmonary. Patient was maintained on IV steroids along with antibiotics and breathing inhalational treatments. Patient was also maintained on IV fluids for hyponatremia and sodium level today is improved at 131. Patient instructed continue holding diuretic therapy along with potassium supplement until repeat labs are done and follow-up with primary care provider. Patient also instructed to monitor fluid intake and maintain 1500 mL per day. Patient is requesting to go home today. Currently no reports of chest pain, shortness of breath, or palpitations. Patient is afebrile. No reports of nausea or vomiting and patient is tolerating diet. Patient to continue on oral steroids along with breathing treatments and oral antibiotics in the form of Augmentin twice daily for the next 5 days to complete the course. On exam vital signs are stable. Temp is 98.0F, pulse is 83, respirations are 18, blood pressure is 140/63, oxygen saturation is 96% on 2 L via nasal cannula. Cardio S1, S2 are muffled. Respiratory system shows diminished breath sounds at the bases with no wheezing or rhonchi noted. Abdomen is soft and nontender. Nervous system shows no focal deficits. Please refer to medication reconciliation sheet for a list of medications. Patient Condition at Discharge: Stable Plan - Discharge Summary Discharge Rx Participant: Yes New Discharge Prescriptions: New Amoxic-Pot Clav 875-125Mg [Augmentin 875-125] 1 each PO Q12HR 5 Days #10 tab predniSONE 10 mg PO DIRECTED #30 tab Continue Tiotropium [place] [Spiriva Respimat] 1 puff INHALATION RT-DAILY Levothyroxine Sodium [Synthroid] 50 mcg PO DAILY rOPINIRole HCL [Requip] 1 mg PO HS Triamcinolone 0.1% Cream [Kenalog 0.1% Cream] 1 applic TOPICAL BID Tamsulosin HCl [Flomax] 0.4 mg PO DAILY Pantoprazole [Protonix] 40 mg PO DAILY Nitroglycerin 0.4 mg SL Q5M PRN PRN Reason: Chest Pain HYDROcodone/APAP 10-325MG [[place] 10-325] 1 tab PO TID PRN PRN Reason: Pain Ketoconazole [Ketoconazole 2%] 1 applic TOPICAL DAILY Escitalopram Oxalate [Lexapro] 10 mg PO DAILY Albuterol Nebulized [Ventolin Nebulized] 2.5 mg INHALATION RT-QID PRN PRN Reason: Shortness Of Breath Verapamil HCl [Verapamil ER] 120 mg PO DAILY Fluticasone Nasal [place] [Flonase Nasal [place]] 1 spray EA NOSTRIL DAILY PRN PRN Reason: Allergy Symptoms Clopidogrel Bisulfate [Plavix] 75 mg PO DAILY Umeclidinium Brm/Vilanterol Tr [Anoro Ellipta 62.5-25 Mcg INH] 1 puff INHALATION RT-DAILY Albuterol Inhaler [Ventolin Hfa Inhaler] 2 puff INHALATION RT-QID PRN PRN Reason: Shortness Of Breath ALPRAZolam [Xanax] 0.25 mg PO BID PRN PRN Reason: Anxiety Lactose-Reduced Food [Boost] 237 ml PO BID Discontinued Potassium Chloride ER [K-Dur 20] 20 meq PO DAILY Furosemide [Lasix] 20 mg PO BID predniSONE 5 mg PO DAILY Discharge Medication List Levothyroxine Sodium [Synthroid] 50 mcg PO DAILY 10/11/15 [History] Tiotropium [place] [Spiriva Respimat] 1 puff INHALATION RT-DAILY 10/11/15 [History] Nitroglycerin 0.4 mg SL Q5M PRN 03/26/18 [History] Pantoprazole [Protonix] 40 mg PO DAILY 03/26/18 [History] Tamsulosin HCl [Flomax] 0.4 mg PO DAILY 03/26/18 [History] Triamcinolone 0.1% Cream [Kenalog 0.1% Cream] 1 applic TOPICAL BID 03/26/18 [History] rOPINIRole HCL [Requip] 1 mg PO HS 03/26/18 [History] HYDROcodone/APAP 10-325MG [[place] 10-325] 1 tab PO TID PRN 10/07/18 [History] Escitalopram Oxalate [Lexapro] 10 mg PO DAILY 10/08/18 [History] Ketoconazole [Ketoconazole 2%] 1 applic TOPICAL DAILY 10/08/18 [History] ALPRAZolam [Xanax] 0.25 mg PO BID PRN 08/04/20 [History] Albuterol Inhaler [Ventolin Hfa Inhaler] 2 puff INHALATION RT-QID PRN 08/04/20 [History] Albuterol Nebulized [Ventolin Nebulized] 2.5 mg INHALATION RT-QID PRN 08/04/20 [History] Clopidogrel Bisulfate [Plavix] 75 mg PO DAILY 08/04/20 [History] Fluticasone Nasal [place] [Flonase Nasal [place]] 1 spray EA NOSTRIL DAILY PRN 08/04/20 [History] Lactose-Reduced Food [Boost] 237 ml PO BID 08/04/20 [History] Umeclidinium Brm/Vilanterol Tr [Anoro Ellipta 62.5-25 Mcg INH] 1 puff INHALATION RT-DAILY 08/04/20 [History] Verapamil HCl [Verapamil ER] 120 mg PO DAILY 08/04/20 [History] Amoxic-Pot Clav 875-125Mg [Augmentin 875-125] 1 each PO Q12HR 5 Days #10 tab 08/06/20 [Rx] predniSONE 10 mg PO DIRECTED #30 tab 08/06/20 [Rx] Follow up Appointment(s)/Referral(s): Scottie Minor MD [Primary Care Provider] - 1-2 days (home care will call patient to set up appt.) Ambulatory/Diagnostic Orders: Basic Metabolic Panel [LAB.AMB] Time Frame: 3 Days, Location: None Selected Patient Instructions/Handouts: Prednisone (By mouth), Amoxicillin/Clavulanate Potassium (By mouth), COPD (Chronic Obstructive Pulmonary Disease) (ED), Hypoxia (GEN) Activity/Diet/Wound Care/Special Instructions: Activity Limited until follow-up Continue with prednisone taper until finished Continue with antibiotics until finished Continue with breathing treatments Repeat labs in 2-3 days Continue holding Lasix and potassium until primary care follow-up Discharge Disposition: HOME WITH HOME HEALTH SERVICES Care Plan Goals (MU): Residential home care, [phone] resumption of care. Home care will call you to set up appointment . Any questions please call agency. Rn
== END 2020-08-06 14:56 | disposition home health service (06) | DRG 190 ==
LOC: EC 00:37 → 3SCARD 01:48 → 6NMEDSUR 13:35
PROVIDERS: ADMIT Hospitalist; ATTEND Hospitalist
PROC: 5A09357 Assistance with Respiratory Ventilation, Less than 24 Consecutive Hours, Continuous Positive Airway Pressure (ICD-10-PCS; principal; 2020-08-04)
DX: J44.1 Chronic obstructive pulmonary disease with (acute) exacerbation (principal); J96.22 Acute and chronic respiratory failure with hypercapnia; J96.21 Acute and chronic respiratory failure with hypoxia; N17.9 Acute kidney failure, unspecified; E87.2 Acidosis; E87.1 Hypo-osmolality and hyponatremia; M19.019 Primary osteoarthritis, unspecified shoulder; M47.9 Spondylosis, unspecified; G89.29 Other chronic pain; I10 Essential (primary) hypertension; I25.119 Atherosclerotic heart disease of native coronary artery with unspecified angina pectoris; T50.2X5A Adverse effect of carbonic-anhydrase inhibitors, benzothiadiazides and other diuretics, initial encounter; Z20.828 Contact with and (suspected) exposure to other viral communicable diseases; Z79.01 Long term (current) use of anticoagulants; Z79.02 Long term (current) use of antithrombotics/antiplatelets; Z79.51 Long term (current) use of inhaled steroids; Z79.52 Long term (current) use of systemic steroids; Z79.82 Long term (current) use of aspirin; Z79.890 Hormone replacement therapy; Z79.899 Other long term (current) drug therapy; E03.9 Hypothyroidism, unspecified; E78.5 Hyperlipidemia, unspecified; Z82.5 Family history of asthma and other chronic lower respiratory diseases; Z87.442 Personal history of urinary calculi; Z87.891 Personal history of nicotine dependence; Z95.1 Presence of aortocoronary bypass graft; Z99.81 Dependence on supplemental oxygen; Z98.49 Cataract extraction status, unspecified eye; Z96.1 Presence of intraocular lens; Z87.01 Personal history of pneumonia (recurrent)
CPT/HCPCS: 36600; 80048; 80053; 82805; 83735; 85025; 87635; 94640; 94660; 96374; 96376; 99291

== ENCOUNTER 2021-09-04 08:37 | Emergency (ER) | payer MEDICARE, OTHER ==
[2021-09-04 08:47] VITALS: TEMP 98.1
[2021-09-04] MEDS ORDERED: TOPICAL SKIN ADHESIVE 1 EACH AMP TOPICAL ONE (09:01)
--- NOTE | 2021-09-04 09:04 | ED ---
General Adult HPI - General Chief complaint: Fall Stated complaint: fall Time Seen by Provider: 09/04/21 08:38 Source: patient Mode of arrival: EMS Limitations: no limitations - History of Present Illness Initial comments: Dictation was produced using [email or web address] dictation software. please excuse any grammatical, word or spelling errors. Chief Complaint: 81-year-old male presents with fall History of Present Illness: he is 81-year-old male he was asleep when he rolled out of bed. He woke up on the floor. Patient states he did hit his head. His only complaint is neck pain and abrasions to the bilateral elbows. Patient is brought in by EMS. Patient has a history of Plavix use. His multiple comorbidities. I no loss of consciousness. Patient has no complaints. The ROS documented in this emergency department record has been reviewed and confirmed by me. Those systems with pertinent positive or negative responses have been documented in the HPI. All other systems are other negative and/or noncontributory. PHYSICAL EXAM: General Impression: Alert and oriented x3, not in acute distress, c-collar in place HEENT: Normocephalic atraumatic, extra-ocular movements intact, pupils equal and reactive to light bilaterally, mucous membranes moist. Cardiovascular: Heart regular rate and rhythm Chest: Able to complete full sentences, no retractions, no tachypnea Abdomen: abdomen soft, non-tender, non-distended, no organomegaly Musculoskeletal: Pulses present and equal in all extremities, no peripheral edema Motor: no focal deficits noted Neurological: CN II-XII grossly intact, no focal motor or sensory deficits noted Skin: Skin tears to the bilateral elbows Psych: Normal affect and mood ED course: 81-year-old male presents emergency department for fall after rolling out of bed while he was sleeping. Signs upon arrival are within acceptable limits. Patient is well-appearing at the bedside. Patient is advanced in age. He has skin tears to his bilateral elbows. His dermis is very tenuous. Skin edges do not approximate well. Dermabond will be applied. Computed tomography scan of the head and C-spine shows no acute fracture dislocation. No intracranial hemorrhage. Patient's skin tear was covered with bandage Laboratory evaluation obtained. Hemoglobin 9.7. This appears to be lower than patient's baseline. Coag panel is unremarkable. Metabolic panel is negative. Still, blood is negative. Patient ambulated with no significant issues. Patient is agreeable for discharge. Return precautions discussed. EKG interpretation: Ventricular rate 67, normal sinus rhythm,. Interval 140, QRS 132, QTC 452. No MD prolongation, no QTC prolongation, no ST or T-wave changes noted. EKG compared to 08/04/2020 showing no changes. Overall, this EKG is unremarkable - Related Data Home Medications Medication Instructions Recorded Confirmed Levothyroxine Sodium [Synthroid] 50 mcg PO DAILY 10/11/15 09/04/21 Nitroglycerin 0.4 mg SL Q5M PRN 03/26/18 09/04/21 Pantoprazole [Protonix] 40 mg PO DAILY 03/26/18 09/04/21 Tamsulosin HCl [Flomax] 0.4 mg PO DAILY 03/26/18 09/04/21 Triamcinolone 0.1% Cream [Kenalog 1 applic TOPICAL BID 03/26/18 09/04/21 0.1% Cream] rOPINIRole HCL [Requip] 1 mg PO HS 03/26/18 09/04/21 HYDROcodone/APAP 10-325MG [[place] 1 tab PO TID PRN 10/07/18 09/04/21 10-325] Ketoconazole [Ketoconazole 2%] 1 applic TOPICAL BID 10/08/18 09/04/21 ALPRAZolam [Xanax] 0.25 mg PO HS PRN 08/04/20 09/04/21 Albuterol Inhaler [Ventolin Hfa 2 puff INHALATION RT-Q4H PRN 08/04/20 09/04/21 Inhaler] Albuterol Nebulized [Ventolin 2.5 mg INHALATION RT-QID 08/04/20 09/04/21 Nebulized] Clopidogrel Bisulfate [Plavix] 75 mg PO DAILY 08/04/20 09/04/21 Fluticasone Nasal [place] [Flonase 1 spr EA NOSTRIL DAILY PRN 08/04/20 09/04/21 Nasal [place]] Verapamil HCl [Verapamil ER] 120 mg PO DAILY 08/04/20 09/04/21 Acetaminophen Tab [Tylenol Tab] 500 - 1,000 mg PO Q8H PRN 09/04/21 09/04/21 Aspirin EC [Ecotrin Low Dose] 81 mg PO DAILY@1200 09/04/21 09/04/21 Clotrimazole [Lotrimin AF] 1 applic TOPICAL DAILY 09/04/21 09/04/21 Ferrous Sulfate [Feosol] 325 mg PO DAILY@1200 09/04/21 09/04/21 Furosemide [Lasix] 10 mg PO DAILY 09/04/21 09/04/21 Furosemide [Lasix] 20 mg PO DAILY PRN 09/04/21 09/04/21 Dipesh's Leg Cramp 1 tab PO HS 09/04/21 09/04/21 Isosorbide Mononitrate ER [Imdur] 30 mg PO DAILY@1200 09/04/21 09/04/21 Magnesium Oxide [Mag-Ox] 400 mg PO HS 09/04/21 09/04/21 Melatonin [Melatonin Chew] 2.5 - 10 mg PO HS PRN 09/04/21 09/04/21 Potassium Chloride ER [K-Dur 10] 10 meq PO DAILY 09/04/21 09/04/21 Sennosides [Senna] 8.6 mg PO DAILY PRN 09/04/21 09/04/21 Sertraline HCl [Zoloft] 50 mg PO HS 09/04/21 09/04/21 Sertraline [Zoloft] 25 mg PO HS 09/04/21 09/04/21 Sodium Chloride Tab 1 gm PO DAILY@1200 09/04/21 09/04/21 Sodium Chloride Tab 2 gm PO DAILY 09/04/21 09/04/21 Tiotropium Br/Olodaterol HCl 2 puff INHALATION RT-DAILY 09/04/21 09/04/21 [Stiolto Respimat Inhal [place]] polyethylene glycoL 3350 [Miralax] 17 gm PO DAILY PRN 09/04/21 09/04/21 predniSONE 5 mg PO DAILY 09/04/21 09/04/21 Allergies Allergy/AdvReac Type Severity Reaction Status Date / Time iodine AdvReac Rapid Verified 09/04/21 11:06 Heart Rate Review of Systems ROS Statement: Those systems with pertinent positive or pertinent negative responses have been documented in the HPI. ROS Other: All systems not noted in ROS Statement are negative. Past Medical History Past Medical History: Coronary Artery Disease (CAD), Chest Pain / Angina, COPD, Hyperlipidemia, Hypertension, Osteoarthritis (OA), Pneumonia, Thyroid Disorder Additional Past Medical History / Comment(s): COPD, coronary artery disease with previous quadruple bypass surgery, hypertension, hyperlipidemia, hypothyroidism, chronic back pain, nephrolithiasis, chronic arthritic pain involving the back and shoulder, History of Any Multi-Drug Resistant Organisms: None Reported Past Surgical History: Coronary Bypass/CABG, Heart Catheterization Additional Past Surgical History / Comment(s): Coronary artery bypass surgery and the patient had four-vessel bypass with 4 stents, back surgery, ORIF of the left arm/hand area and cataract surgery with intraocular lens placement Past Anesthesia/Blood Transfusion Reactions: Previous Problems w/ Anesthesia Additional Past Anesthesia/Blood Transfusion Reaction / Comment(s): DIFFICULTY WAKING UP Past Psychological History: No Psychological Hx Reported Smoking Status: Former smoker Past Alcohol Use History: Occasional Past Drug Use History: None Reported - Past Family History Father History Unknown: Yes Family Medical History: No Reported History Additional Family Medical History / Comment(s): Vang Mother Family Medical History: Asthma, COPD General Exam Limitations: no limitations Course Vital Signs 09/04/21 08:39 Temperature 98.1 F Pulse Rate 67 Respiratory 16 Rate Blood Pressure 165/82 O2 Sat by Pulse 100 Oximetry Medical Decision Making - Lab Data Result diagrams: 09/04/21 09:00 09/04/21 09:00 Lab Results 09/04/21 09/04/21 09/04/21 Range/Units 09:00 09:00 09:00 WBC 8.1 (3.8-10.6) k/uL RBC 3.55 L (4.30-5.90) m/uL Hgb 9.7 L (13.0-17.5) gm/dL Hct 32.5 L (39.0-53.0) % MCV 91.5 (80.0-100.0) fL MCH 27.4 (25.0-35.0) pg MCHC 29.9 L (31.0-37.0) g/dL RDW 14.0 (11.5-15.5) % Plt Count 255 (150-450) k/uL MPV 7.6 Neutrophils % 71 % Lymphocytes % 14 % Monocytes % 9 % Eosinophils % 4 % Basophils % 1 % Neutrophils # 5.7 (1.3-7.7) k/uL Lymphocytes # 1.1 (1.0-4.8) k/uL Monocytes # 0.7 (0-1.0) k/uL Eosinophils # 0.3 (0-0.7) k/uL Basophils # 0.1 (0-0.2) k/uL Hypochromasia Marked PT 10.0 (9.0-12.0) sec INR 0.9 (<1.2) APTT 23.9 (22.0-30.0) sec Sodium 134 L (137-145) mmol/L Potassium 4.4 (3.5-5.1) mmol/L Chloride 99 (98-107) mmol/L Carbon Dioxide 35 H (22-30) mmol/L Anion Gap 0 mmol/L BUN 28 H (9-20) mg/dL Creatinine 1.09 (0.66-1.25) mg/dL Est GFR (CKD-EPI)AfAm 73 (>60 ml/min/1.73 sqM) Est GFR (CKD-EPI)NonAf 63 (>60 ml/min/1.73 sqM) Glucose 87 (74-99) mg/dL Calcium 8.7 (8.4-10.2) mg/dL Magnesium 2.2 (1.6-2.3) mg/dL Stool Occult Blood (Negative) 09/04/21 Range/Units 10:12 WBC (3.8-10.6) k/uL RBC (4.30-5.90) m/uL Hgb (13.0-17.5) gm/dL Hct (39.0-53.0) % MCV (80.0-100.0) fL MCH (25.0-35.0) pg MCHC (31.0-37.0) g/dL RDW (11.5-15.5) % Plt Count (150-450) k/uL MPV Neutrophils % % Lymphocytes % % Monocytes % % Eosinophils % % Basophils % % Neutrophils # (1.3-7.7) k/uL Lymphocytes # (1.0-4.8) k/uL Monocytes # (0-1.0) k/uL Eosinophils # (0-0.7) k/uL Basophils # (0-0.2) k/uL Hypochromasia PT (9.0-12.0) sec INR (<1.2) APTT (22.0-30.0) sec Sodium (137-145) mmol/L Potassium (3.5-5.1) mmol/L Chloride (98-107) mmol/L Carbon Dioxide (22-30) mmol/L Anion Gap mmol/L BUN (9-20) mg/dL Creatinine (0.66-1.25) mg/dL Est GFR (CKD-EPI)AfAm (>60 ml/min/1.73 sqM) Est GFR (CKD-EPI)NonAf (>60 ml/min/1.73 sqM) Glucose (74-99) mg/dL Calcium (8.4-10.2) mg/dL Magnesium (1.6-2.3) mg/dL Stool Occult Blood Negative (Negative) Disposition Clinical Impression: Fall Disposition: HOME SELF-CARE Condition: Fair Instructions (If sedation given, give patient instructions): Fall Prevention for Older Adults (ED) Is patient prescribed a controlled substance at d/c from ED?: No Referrals: Scottie Minor MD [Primary Care Provider] - 1-2 days
[2021-09-04 09:32] LABS: Basophils # (A) 0.1 k/uL (0-0.2); Basophils % (A) 1 %; Eosinophils # (A) 0.3 k/uL (0-0.7); Eosinophils % (A) 4 %; HCT 32.5 % (39.0-53.0); HGB 9.7 gm/dL (13.0-17.5); Hypochromasia Marked; Lymphocytes # (A) 1.1 k/uL (1.0-4.8); Lymphocytes % (A) 14 %; MCH 27.4 pg (25.0-35.0); MCHC 29.9 g/dL (31.0-37.0); MCV 91.5 fL (80.0-100.0); Mean Platelet Volume 7.6; Monocytes # (A) 0.7 k/uL (0-1.0); Monocytes % (A) 9 %; Neutrophils # (A) 5.7 k/uL (1.3-7.7); Neutrophils % (A) 71 %; Platelet Count 255 k/uL (150-450); RBC 3.55 m/uL (4.30-5.90); WBC 8.1 k/uL (3.8-10.6)
[2021-09-04 09:34] LABS: Calcium 8.7 mg/dL (8.4-10.2); Magnesium 2.2 mg/dL (1.6-2.3); Potassium 4.4 mmol/L (3.5-5.1)
[2021-09-04 09:36] LABS: INR 0.9 (<1.2); Partial Thromboplastin Time 23.9 sec (22.0-30.0)
--- NOTE | 2021-09-04 09:52 | CT ---
EXAMINATION TYPE: CT brain [facility] DATE OF EXAM: 09/04/2021 COMPARISON: NONE HISTORY: Fall injury with headache and neck pain CT DLP: 1331.6 mGycm. Automated Exposure Control for Dose Reduction was Utilized. TECHNIQUE: CT scan of the head and cervical spine are performed without contrast. FINDINGS: There is no acute intracranial hemorrhage or midline shift identified. Mild ventricular a nd sulcal prominence. Moderate to severe low-attenuation in the deep and periventricular white matter . The globes are intact and the visualized sinuses are clear. The calvarium is intact. Osseous structures are demineralized. Cervical spine is visualized in its entirety from C1 through up per thoracic levels and demonstrates satisfactory alignment without evidence of acute fracture or dis location. Prevertebral soft tissue appears within normal limits. The C1-C2 articulation is within n ormal limits on the coronal images. Vertebral body heights are maintained. Moderate disc space narro wing C4-C5 and C5-C6 levels. Posterior spurring effaces the ventral thecal sac at these levels. There is a stent graft centered left carotid bulb. Mild to moderate right sided carotid calcifications are present. Review of axial images shows multilevel uncovertebral and facet degenerative changes contributing to multilevel bilateral neural foraminal narrowing. Lung apices show mild to moderate underlying emphyse matous change without pneumothorax. Thyroid gland is normal in size. IMPRESSION: 1. There is no acute fracture or dislocation evident in the cervical spine. 2. No acute intracranial hemorrhage or midline shift is seen. Mild diffuse cerebral atrophy with mode rate to advanced suspected chronic small vessel ischemic change identified.
[2021-09-04] MEDS ORDERED: DIPH,PERTUS(ACELL)TETVAC-LF 0.5 ML VIAL IM ONE (09:56)
[2021-09-04] MEDS ORDERED: MORPHINE SULFATE 2 MG/ML SYRINGE IV STA (10:14)
[2021-09-04 11:48] VITALS: BP 165/80; PULSE 68; RESP 22
== END 2021-09-04 12:36 | disposition home or self-care (01) ==
LOC: EC 08:37
DX: M54.2 Cervicalgia (principal); I10 Essential (primary) hypertension; J44.9 Chronic obstructive pulmonary disease, unspecified; E78.5 Hyperlipidemia, unspecified; E03.9 Hypothyroidism, unspecified; M19.90 Unspecified osteoarthritis, unspecified site; I25.10 Atherosclerotic heart disease of native coronary artery without angina pectoris; Z87.891 Personal history of nicotine dependence; Z88.8 Allergy status to other drugs, medicaments and biological substances; Z79.890 Hormone replacement therapy; Z79.899 Other long term (current) drug therapy; Z79.02 Long term (current) use of antithrombotics/antiplatelets; Z79.51 Long term (current) use of inhaled steroids; Z79.82 Long term (current) use of aspirin; Z23 Encounter for immunization; W06.XXXA Fall from bed, initial encounter; Y92.009 Unspecified place in unspecified non-institutional (private) residence as the place of occurrence of the external cause
CPT/HCPCS: 36415; 93005; 80048; 83735; 85025; 85610; 85730; 82272; 72125; 70450; 90715; 99284; 96374; 90471; J2270